=== PATIENT | female | born 1955 | race Caucasian/White ===

== ENCOUNTER → 2016-10-26 | Outpatient (REF) | payer MEDICARE ==
[~2016-10-26] MED LIST: /ESOM40CA PO; AMAR1TAB PO; ASPI325T PO; ATOR1TAB18 PO; CALC1CAP31 PO; CITRTAB18 PO; FISH1000 PO; FLUO20CA8 PO; FLUO40CA57 PO; GLIM1TAB PO; MECL-68 PO; METO25TAB PO; PANT40TA2 PO; ROBA750T4 PO; TYLE1TAB5 PO; ULTR50TA PO; VESI10TA PO; VITA100066 PO; VITA500047 PO; VYTO10TA41 PO; ZOFR20TA PO
[2016-10-26 17:01] LABS: INR 1.03
== END ==
LOC: M SFHCPLAZ 15:43
PROVIDERS: ATTEND Physician Assistant Medical
DX: R91.1 Solitary pulmonary nodule (principal); Z79.899 Other long term (current) drug therapy

== ENCOUNTER → 2016-11-09 | Outpatient (CLI) | payer MEDICARE ==
[~2016-11-09] MED LIST changes: +ACETAMINOPHEN 325 MG TAB As Ordered ONE; +FLUO40CA PO; -FLUO40CA57 PO; +LIDOCAINE 1% MDV 20ML VIAL As Ordered ONE
--- NOTE | 2016-11-09 10:31 | REP ---
CHEST X-RAY: Single PA view. HISTORY: Status post CT guided needle biopsy right lower lobe lung mass. Comparison chest x-rays from August 04, 2016. FINDINGS: Today's PA chest x-ray shows no evidence of pneumothorax or hydrothorax. The target right base lung mass is not well seen on plain radiographs. Heart is not enlarged. The left lung remains essentially clear. Pleural angles are sharp. IMPRESSION: No complication identified. Signed by Shan Chung MD 11/09/2016 02:32 P
--- NOTE | 2016-11-09 12:37 | REP ---
CT GUIDED RIGHT LOWER LOBE LUNG BIOPSY: The procedure was performed under the direct supervision of Dr. Chung. The patient has a history of a lobular mass measuring 2.6 x 2.3 x 2.9 cm in the medial basilar segment of the right lower lobe seen on a previous CT scan dated 09/27/2016. The risks and benefits of the procedure were explained to the patient and informed consent was obtained. The right lower lobe lung mass was localized using CT guidance. The skin was prepped and draped in a sterile fashion. 1% Xylocaine was used as a local anesthetic. Using CT guidance, a 19-20 gauge coaxial needle biopsy system was inserted and advanced into the mass. Four core biopsy samples were obtained and sent to the lab. The patient tolerated the procedure well and there were no immediate complications. After the appropriate amount of monitored convalescence, the patient was discharged from the department. Reviewed by BRYSON Hayden 11/09/2016 01:44 PEdited and Signed by Shan Chung MD 11/09/2016 02:37 P
== END | disposition home or self-care (01) ==
LOC: M RADPRO 08:56
PROVIDERS: ATTEND Physician Assistant Medical
DX: C34.90 Malignant neoplasm of unspecified part of unspecified bronchus or lung (principal); Z79.82 Long term (current) use of aspirin; Z79.899 Other long term (current) drug therapy; Z88.5 Allergy status to narcotic agent; Z80.1 Family history of malignant neoplasm of trachea, bronchus and lung

== ENCOUNTER → 2016-11-24 | Outpatient (CLI) | payer MEDICARE ==
[~2016-11-24] MED LIST changes: -ACETAMINOPHEN 325 MG TAB As Ordered ONE; -LIDOCAINE 1% MDV 20ML VIAL As Ordered ONE
--- NOTE | 2016-11-25 09:09 | REP ---
PET/CT: HISTORY: Adenocarcinoma right lung. COMPARISONS: Comparison CT scan of the chest is from September 27, 2016. TECHNIQUE: 64 minutes following the intravenous injection of a 8.0 mCi dose of F-18 FDG, three-dimensional PET scintigraphy is acquired from the skull base to the proximal thighs. Triplanar noncontrast CT scanning is acquired through the same anatomic range for attenuation correction, and image registration with scan parameters optimized to minimize radiation exposure to the patient. PET scintigraphy and CT datasets were fused and displayed on a workstation with multiplanar and projection display capability. PET/CT FINDINGS: The biopsy-proven malignant right lower lobe lung mass is hypermetabolic. Maximum standard uptake value is 11.8 in the right lower lobe mass. There is a second small contralateral hypermetabolic uptake focus in the left lower lobe posterobasal segment infrahilar region where there is some atelectasis and infrahilar bullous versus focal bronchiectasis. Maximum SUV value in this small subcentimeter rounded focus is 4.8. There is a second similar focus in the left lower lobe more posteriorly also infrahilar with maximum SUV value 4.2. These areas are difficult to visualize on the accompanying CT. There are of uncertain significance. There is no evidence of mediastinal or hilar hypermetabolic uptake. No other pulmonary parenchymal uptake is seen. Incidental note is made of an aberrant right subclavian artery coursing behind the esophagus in the upper mediastinum. There are visible lymph nodes in the mediastinum but these are not hypermetabolic. In the abdomen and pelvis, there is normal hepatic, genitourinary, and gastrointestinal FDG accumulation. This patient has a history of splenectomy but there is some recurrent or residual spleen tissue in the left upper quadrant and this shows normal uptake. There is a cyst in the left kidney. Some renal cortical atrophy is seen. There is a subdermal hypermetabolic focus in the left buttock posterior skin at the level of the ischium. This dermal focus is quite hypermetabolic. Maximum standard uptake value within it is 12.6. It measures 2.7 cm in medial to lateral x 0.9 cm in thickness x 2.9 cm in craniocaudal span. This should be correlated clinically. Biopsy of this lesion should be considered. Also noted is a 3.4 cm distal aortic aneurysm. IMPRESSION: 1. The known malignancy in the right lower lobe is hypermetabolic. 2. There are two left lower lobe infrahilar foci of mildly hypermetabolic uptake with some associated subtle parenchymal opacity of uncertain significance. 3. There is a markedly hypermetabolic dermal lesion in the left buttock skin which merits clinical correlation and histologic sampling. 4. There is an aberrant right subclavian artery noted incidentally. Signed by Shan Chung MD 11/25/2016 09:55 A
== END ==
LOC: M RAD 11:21
PROVIDERS: ATTEND Family Medicine
DX: C34.91 Malignant neoplasm of unspecified part of right bronchus or lung (principal)
CPT/HCPCS: 78815; A9552

== ENCOUNTER → 2016-11-30 | Outpatient (REF) | payer MEDICARE ==
[2016-11-30 14:33] LABS: CREATININE FOR GFR 2.36 MG/DL (0.55-1.02); GLOMERULAR FILTRATION RATE 22.1 (>45)
== END ==
LOC: M LAB REF 13:06
PROVIDERS: ATTEND Thoracic Surgery (Cardiothoracic Vascular Surgery)
DX: C34.31 Malignant neoplasm of lower lobe, right bronchus or lung (principal); Z01.818 Encounter for other preprocedural examination

== ENCOUNTER → 2016-12-27 | Day surgery (SDC) | payer MEDICARE ==
[~2016-12-27] VITALS: Ht 152.4 cm; Wt 96.2 kg
[~2016-12-27] MED LIST changes: +ACETAMINOPH W/CODEINE #3 TAB UD PO ONE; +CIPROFLOXACIN 0.3% OPHTH SOLN 2.5ML OS SCH; +EPINEPHrine 1MG/10ML SYRINGE 1.5IN As Ordered ONE; +GLYCOPYRROLATE INJ 0.2 MG/ML 2 ML VIAL As Ordered ONE; +HYDROmorphone HCL 1 MG/ML SYRINGE (J1170) IV PRN; +LABETALOL HCL 100 MG/20 ML VIAL As Ordered ONE; +LIDOCAINE 1% MDV 20ML VIAL As Ordered ONE; +LIDOCAINE 2% INJ 100 MG/5 ML SDV (FOR ANES.) As Ordered ONE; +LIDOCAINE VISCOUS 2% SOLN 15ML UDC As Ordered ONE; +LR 1,000 ML IV SCH; +MIDAZOLAM INJ 2 MG/2 ML VIAL (J2250) As Ordered ONE; +NEOSTIGMINE 1MG/ML 5 ML SYRINGE (J2710) As Ordered ONE; +ONDANSETRON 4MG/2ML VIAL (J2405) As Ordered ONE; +ONDANSETRON 4MG/2ML VIAL (J2405) IV PRN; +PROPARACAINE 0.5% OPHTH SOL 15ML OS ONE; +PROPOFOL 200 MG/20 ML VIAL As Ordered ONE; +ROCURONIUM BROMIDE 50 MG/5 ML VIAL As Ordered ONE; +THROMBIN SOLN 5,000 UNITS VIAL As Ordered ONE; +dexameTHASONE 4 MG/ML 1ML VIAL (J1100) As Ordered ONE; +fentaNYL 100 MCG/2 ML INJECTION (J3010) As Ordered ONE; +fentaNYL 100 MCG/2 ML INJECTION (J3010) IV PRN
--- NOTE | 2016-12-27 09:29 | RO ---
DATE OF PROCEDURE: 12/27/2016 PREOPERATIVE DIAGNOSIS: Abnormal chest CT, left hilar, left lower lobe hypermetabolic lesion on imaging. POSTOPERATIVE DIAGNOSIS: Abnormal chest CT, left hilar, left lower lobe hypermetabolic lesion on imaging. PROCEDURE: Bronchoscopy with electromagnetic navigation and endobronchial ultrasound procedures. SURGEON: Randy Valero DO CONSTRUCTION DIRECTOR: No assistants. ANESTHESIA: General. FINDINGS: Pitting of the airway, especially in the left with thick mucus secretions. ESTIMATED BLOOD LOSS: 5 mL. SPECIMENS OBTAINED: 1. Cyto-needle brush to cytology. 2. Transbronchial forceps biopsies left lower lobe to cytology. DESCRIPTION OF PROCEDURE: After informed consent was reviewed with the patient in the preoperative area, she was brought back to operating room (OR) suite #8. After a time-out, general anesthesia was initiated. The case was then handed over to me. The 1T180 bronchoscope was then inserted through the 8.5 endotracheal tube. This was deep. Therefore, the tube was pulled back. All airways were suctioned as there was large amounts of thick yellow mucus. The airways were then inspected. Trachea was midline. Amie was sharp midline. Right and left mainstem bronchus was normal. Right bronchus (RB) 1-10 was normal without endobronchial lesions. The right middle lobe is fish mouthed. Left bronchus (LB) 1-10 was fairly normal except for hyperemic airways. There was no endobronchial lesions. Automatic registration was then performed. The target #1 lesion was then easily navigated to. Cyto needle brush was then obtained times two. This was followed by multiple transbronchial forceps biopsies. After adequate sampling, the bronchoscope was removed. According to the navigation system, the lesion was in 5 mm of the tip of the probe. The probe was removed. The LG guide was removed and hemostasis was assured. After the bronchoscope was removed, the endobronchial ultrasound was then inserted. I viewed the subcarinal area of the left hilum and the left lower lobe as much as possible. There was no significant lymphadenopathy or mass for biopsies. Pictures were taken of the site in question. There was nothing but open vasculature. The endobronchial ultrasound was then removed. Patient tolerated the procedure without complications. She is in recovery. Postprocedure chest x-ray is pending. LUIS
--- NOTE | 2016-12-27 09:48 | REP ---
POSTOPERATIVE PORTABLE CHEST: COMPARISON: 11/09/2016 The technique utilized in obtaining the radiograph has magnified the cardiac silhouette and accentuated the interstitial markings. Increased interstitial markings are seen throughout the lung parker. There are no patchy opacities or pleural effusions. The cardiac silhouette is top limit of normal with the technique utilized in obtaining the radiograph. The osseous structures are within normal limits. IMPRESSION: Technique and findings as described above. Mild interstitial edema cannot be ruled out. Signed by Mathew Arroyo DO 12/27/2016 02:31 P
[2016-12-27 15:50] VITALS: BP 148/70
== END | disposition home or self-care (01) ==
LOC: M SDC 06:25
PROVIDERS: ATTEND Internal Medicine Pulmonary Disease
DX: R91.8 Other nonspecific abnormal finding of lung field (principal); E11.9 Type 2 diabetes mellitus without complications; I25.2 Old myocardial infarction; Z98.61 Coronary angioplasty status; G47.30 Sleep apnea, unspecified; Z88.8 Allergy status to other drugs, medicaments and biological substances; Z79.82 Long term (current) use of aspirin; Z79.899 Other long term (current) drug therapy; I10 Essential (primary) hypertension; E78.5 Hyperlipidemia, unspecified; K21.9 Gastro-esophageal reflux disease without esophagitis; Z87.891 Personal history of nicotine dependence; G35 Multiple sclerosis
CPT/HCPCS: 31623; 31627; 31628; 31654; 71010; 76000; 88104; 88172; 88173; 88305; J1100; J2250; J2405; J2710; J3010

== ENCOUNTER → 2016-12-30 | Outpatient (CLI) | payer MEDICARE ==
[~2016-12-30] MED LIST changes: -ACETAMINOPH W/CODEINE #3 TAB UD PO ONE; -CIPROFLOXACIN 0.3% OPHTH SOLN 2.5ML OS SCH; -EPINEPHrine 1MG/10ML SYRINGE 1.5IN As Ordered ONE; -GLYCOPYRROLATE INJ 0.2 MG/ML 2 ML VIAL As Ordered ONE; -HYDROmorphone HCL 1 MG/ML SYRINGE (J1170) IV PRN; -LABETALOL HCL 100 MG/20 ML VIAL As Ordered ONE; -LIDOCAINE 1% MDV 20ML VIAL As Ordered ONE; -LIDOCAINE 2% INJ 100 MG/5 ML SDV (FOR ANES.) As Ordered ONE; -LIDOCAINE VISCOUS 2% SOLN 15ML UDC As Ordered ONE; -LR 1,000 ML IV SCH; -MIDAZOLAM INJ 2 MG/2 ML VIAL (J2250) As Ordered ONE; -NEOSTIGMINE 1MG/ML 5 ML SYRINGE (J2710) As Ordered ONE; -ONDANSETRON 4MG/2ML VIAL (J2405) As Ordered ONE; -ONDANSETRON 4MG/2ML VIAL (J2405) IV PRN; -PROPARACAINE 0.5% OPHTH SOL 15ML OS ONE; -PROPOFOL 200 MG/20 ML VIAL As Ordered ONE; -ROCURONIUM BROMIDE 50 MG/5 ML VIAL As Ordered ONE; -THROMBIN SOLN 5,000 UNITS VIAL As Ordered ONE; -dexameTHASONE 4 MG/ML 1ML VIAL (J1100) As Ordered ONE; -fentaNYL 100 MCG/2 ML INJECTION (J3010) As Ordered ONE; -fentaNYL 100 MCG/2 ML INJECTION (J3010) IV PRN
[2016-12-30 12:14] LABS: ABG BASE EXCESS -1.4 (-2.0-2.0); ABG HCO3 21.5 MEQ/L (22.0-26.0); ABG PARTIAL PRESSURE CO2 31.1 mmHg (35.0-45.0); ABG PARTIAL PRESSURE O2 106.8 mmHg (75.0-100.0); ABG STANDARD HCO3 23.3 MEQ/L (22.0-26.0); ABG TOTAL CO2 22.4 MEQ/L (23.0-31.0); ABG pH (ARTERIAL) 7.457 UNITS (7.350-7.450)
[2016-12-30 12:18] LABS: MEAN CORPUSCULAR HEMOGLOBIN 29.6 pg (27.0-33.0); MEAN CORPUSCULAR HGB CONC 32.1 g/dl (32.0-36.5); MEAN CORPUSCULAR VOLUME 92.4 fl (80.0-96.0); RED CELL DISTRIBUTION WIDTH 13.9 % (11.5-14.5); WHITE BLOOD COUNT 11.4 K/mm3 (4.0-10.0)
[2016-12-30 12:45] LABS: INR 1.01
--- NOTE | 2016-12-30 12:49 | ECGEPIP ---
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
[2016-12-30 12:59] LABS: CALCIUM LEVEL 9.3 MG/DL (8.8-10.2); CREATININE FOR GFR 2.47 MG/DL (0.55-1.02); POTASSIUM SERUM 4.8 MEQ/L (3.5-5.1)
--- NOTE | 2016-12-30 14:15 | REP ---
TWO-VIEW CHEST: Two views of the chest are performed and compared to multiple prior exams, most recently a single view of the chest, 12/27/2016. The known right lower lobe mass is not optimally seen by radiography. It is vaguely visualized posteromedially in the right lung base. There is fibrotic change in each lung base. The heart is normal in size. The mediastinal silhouette is unremarkable. There are degenerative changes of the spine. IMPRESSION: Subtle right lower lobe mass. Signed by Dejan Ovalle MD 12/30/2016 04:43 P
== END ==
LOC: M ADMPAT 10:49
PROVIDERS: ATTEND Thoracic Surgery (Cardiothoracic Vascular Surgery)
DX: Z01.818 Encounter for other preprocedural examination (principal); C34.31 Malignant neoplasm of lower lobe, right bronchus or lung; Z79.01 Long term (current) use of anticoagulants; Z79.899 Other long term (current) drug therapy

== ENCOUNTER → 2016-12-31 | Outpatient (CLI) | payer MEDICARE ==
[2016-12-30 11:02] VITALS: BP 124/86
[~2016-12-31] VITALS: Ht 152.4 cm; Wt 96.2 kg
[~2016-12-31] MED LIST changes: +ASPIRIN 325 MG TAB As Ordered ONE; +ASPIRIN 325 MG TAB PO ONE; +BUPIVACAINE HCL 0.25% 30 ML VIAL As Ordered ONE; +BUPIVACAINE HCL 0.5% 30 ML VIAL As Ordered ONE; +BUPIVACAINE LIPOSOME/PF 1.3% 20 ML VIAL (13.3MG/ML)(EXPAREL) As Ordered ONE; +KETOROLAC 60 MG/2 ML VIAL (J1885) As Ordered ONE; +LIDOCAINE 2% INJ 100 MG/5 ML SDV (FOR ANES.) As Ordered ONE; +LR 1,000 ML IV SCH; +MIDAZOLAM INJ 2 MG/2 ML VIAL (J2250) As Ordered ONE; +MIDAZOLAM INJ 2 MG/2 ML VIAL (J2250) IV ONE; +MUPIROCIN 2% OINT 22 GM TUBE TOP ONE; +ONDANSETRON 4MG/2ML VIAL (J2405) As Ordered ONE; +PROPOFOL 200 MG/20 ML VIAL As Ordered ONE; +ROCURONIUM BROMIDE 50 MG/5 ML VIAL As Ordered ONE; +ceFAZolin SOD 1 GM in D5W MINI-BAG PLUS 50 ML IV ONE; +dexameTHASONE 4 MG/ML 1ML VIAL (J1100) As Ordered ONE; +fentaNYL 100 MCG/2 ML INJECTION (J3010) As Ordered ONE; +fentaNYL 100 MCG/2 ML INJECTION (J3010) IV ONE; +fentaNYL 250 MCG/5 ML INJECTION (J3010) As Ordered ONE
[2016-12-31 06:36] LABS: ABG BASE EXCESS -3.5 (-2.0-2.0); ABG HCO3 20.6 MEQ/L (22.0-26.0); ABG PARTIAL PRESSURE CO2 34.4 mmHg (35.0-45.0); ABG PARTIAL PRESSURE O2 102.8 mmHg (75.0-100.0); ABG STANDARD HCO3 21.6 MEQ/L (22.0-26.0); ABG TOTAL CO2 21.6 MEQ/L (23.0-31.0); ABG pH (ARTERIAL) 7.395 UNITS (7.350-7.450)
[2016-12-31 09:15] VITALS: BP 139/69
== END ==
LOC: UNDOADMIN 05:52 → M OR 05:52 → EDSTATUS 07:30 → M LAB 10:00
PROVIDERS: ATTEND Thoracic Surgery (Cardiothoracic Vascular Surgery)
DX: C34.31 Malignant neoplasm of lower lobe, right bronchus or lung (principal)

== ENCOUNTER 2017-02-20 15:35 | Inpatient (IN) | payer MEDICARE, MEDICAID ==
[~2017-02-20] VITALS: Ht 149.9 cm; Wt 100.1 kg
[~2017-02-20 15:35] MED LIST changes: -ASPIRIN 325 MG TAB As Ordered ONE; -ASPIRIN 325 MG TAB PO ONE; -BUPIVACAINE HCL 0.25% 30 ML VIAL As Ordered ONE; -BUPIVACAINE HCL 0.5% 30 ML VIAL As Ordered ONE; -BUPIVACAINE LIPOSOME/PF 1.3% 20 ML VIAL (13.3MG/ML)(EXPAREL) As Ordered ONE; -KETOROLAC 60 MG/2 ML VIAL (J1885) As Ordered ONE; -LIDOCAINE 2% INJ 100 MG/5 ML SDV (FOR ANES.) As Ordered ONE; -LR 1,000 ML IV SCH; -MIDAZOLAM INJ 2 MG/2 ML VIAL (J2250) As Ordered ONE; -MIDAZOLAM INJ 2 MG/2 ML VIAL (J2250) IV ONE; -MUPIROCIN 2% OINT 22 GM TUBE TOP ONE; -ONDANSETRON 4MG/2ML VIAL (J2405) As Ordered ONE; -PROPOFOL 200 MG/20 ML VIAL As Ordered ONE; -ROCURONIUM BROMIDE 50 MG/5 ML VIAL As Ordered ONE; -ceFAZolin SOD 1 GM in D5W MINI-BAG PLUS 50 ML IV ONE; -dexameTHASONE 4 MG/ML 1ML VIAL (J1100) As Ordered ONE; -fentaNYL 100 MCG/2 ML INJECTION (J3010) As Ordered ONE; -fentaNYL 100 MCG/2 ML INJECTION (J3010) IV ONE; -fentaNYL 250 MCG/5 ML INJECTION (J3010) As Ordered ONE
[2017-02-20] MEDS ORDERED: ASPI1TAB PO (15:58)
[2017-02-20 17:53] LABS: BASO % 0.6 % (0.0-1.0); EOS # 0.2 K/mm3 (0.0-0.50); EOS % 3.1 % (0.0-3.0); LARGE UNSTAINED CELL # 0.3 K/mm3 (0.0-0.4); LARGE UNSTAINED CELL % 3.5 % (0.0-4.0); LYMPH # 2.4 K/mm3 (1.5-4.5); LYMPH % 28.8 % (24.0-44.0); MEAN CORPUSCULAR HEMOGLOBIN 29.9 pg (27.0-33.0); MEAN CORPUSCULAR HGB CONC 32.5 g/dl (32.0-36.5); MEAN CORPUSCULAR VOLUME 92.1 fl (80.0-96.0); MONO # 0.6 K/mm3 (0.0-0.8); MONO % 6.8 % (0.0-5.0); NEUTROPHILS # 4.7 K/mm3 (1.8-7.7); NEUTROPHILS % 57.2 % (36.0-66.0); PLATELET COUNT, AUTOMATED 268 k/mm3 (150-450); RED CELL DISTRIBUTION WIDTH 14.1 % (11.5-14.5); WHITE BLOOD COUNT 8.2 K/mm3 (4.0-10.0)
[2017-02-20 18:16] LABS: ANION GAP 9 MEQ/L (8-16); BLOOD UREA NITROGEN 43 MG/DL (7-18); CALCIUM LEVEL 8.5 MG/DL (8.8-10.2); CARBON DIOXIDE LEVEL 20 MEQ/L (21-32); CHLORIDE LEVEL 111 MEQ/L (98-107); CREATININE FOR GFR 3.45 MG/DL (0.55-1.02); GLOMERULAR FILTRATION RATE 14.3 (>45); GLUCOSE, FASTING 77 MG/DL (80-110); MAGNESIUM LEVEL 1.9 MG/DL (1.8-2.4); PHOSPHORUS LEVEL 3.7 MG/DL (2.5-4.9); POTASSIUM SERUM 4.6 MEQ/L (3.5-5.1); SODIUM LEVEL 140 MEQ/L (136-145); THYROXINE (T4) 9.7 UG/DL (4.5-12.0)
[2017-02-20] MEDS ORDERED: NS 1,000 ML IV SCH (21:00)
[2017-02-20] MEDS ORDERED: RANI150T PO (21:55)
[2017-02-20] MEDS ORDERED: CLOP75TA2 PO (21:55)
[2017-02-20] MEDS: NS 1,000 ML IV SCH (22:45)
[2017-02-20] MEDS ORDERED: ACETAMINOPHEN TAB 650MG DOSE (2X325MG) PO PRN (22:45)
[2017-02-20] MEDS ORDERED: ONDANSETRON 4 MG TAB (S0181) PO PRN (23:00)
[2017-02-20 23:08] LABS: ABG BASE EXCESS -10.7 (-2.0-2.0); ABG HCO3 11.8 MEQ/L (22.0-26.0); ABG PARTIAL PRESSURE CO2 20.3 mmHg (35.0-45.0); ABG PARTIAL PRESSURE O2 104.6 mmHg (75.0-100.0); ABG STANDARD HCO3 16.2 MEQ/L (22.0-26.0); ABG TOTAL CO2 12.4 MEQ/L (23.0-31.0); ABG pH (ARTERIAL) 7.383 UNITS (7.350-7.450)
[2017-02-21] VITALS: BP 139/62
[2017-02-21] MEDS: ATORVASTATIN 20 MG TAB PO SCH ×2 (00:40→20:40)
[2017-02-21] MEDS: CLOPIDOGREL 75 MG TAB PO SCH ×2 (00:40→20:41)
[2017-02-21] MEDS: PANTOPRAZOLE 40MG TAB (PROTONIX) PO SCH ×3 (00:41→20:41)
[2017-02-21] MEDS: METOPROLOL TART 25 MG TABLET PO SCH ×4 (00:41→20:41)
[2017-02-21] MEDS: ASPIRIN 81 MG ENTERIC TAB PO SCH ×2 (00:41→20:41)
[2017-02-21] MEDS: GLIMEPIRIDE 1 MG TABLET PO SCH ×3 (01:31→08:11)
[2017-02-21 03:56] VITALS: BP 119/61
--- NOTE | 2017-02-21 06:23 | ECGEPIP ---
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
[2017-02-21 06:48] LABS: BASO % 0.5 % (0.0-1.0); EOS # 0.3 K/mm3 (0.0-0.50); EOS % 3.4 % (0.0-3.0); LARGE UNSTAINED CELL # 0.4 K/mm3 (0.0-0.4); LARGE UNSTAINED CELL % 4.4 % (0.0-4.0); LYMPH # 3.4 K/mm3 (1.5-4.5); LYMPH % 40.5 % (24.0-44.0); MEAN CORPUSCULAR HEMOGLOBIN 31.4 pg (27.0-33.0); MEAN CORPUSCULAR HGB CONC 34.6 g/dl (32.0-36.5); MEAN CORPUSCULAR VOLUME 90.6 fl (80.0-96.0); MONO # 0.6 K/mm3 (0.0-0.8); MONO % 6.9 % (0.0-5.0); NEUTROPHILS # 3.7 K/mm3 (1.8-7.7); NEUTROPHILS % 44.3 % (36.0-66.0); PLATELET COUNT, AUTOMATED 219 k/mm3 (150-450); WHITE BLOOD COUNT 8.4 K/mm3 (4.0-10.0)
--- NOTE | 2017-02-21 07:15 | REP ---
CHEST, TWO VIEWS: HISTORY: Cough. COMPARISON: 12/30/2016 The patient's known right lower lobe mass is not seen in the present radiograph. An increase in interstitial markings is present in the lower lobes consistent with chronic interstitial fibrosis. The heart is normal in size. The pulmonary vasculature is normal in appearance. The bony structure is intact. IMPRESSION: 1. The patient's known right lower lobe mass is not seen in the present radiograph. 2. Chronic interstitial fibrosis. Signed by Marquis Mendosa MD 02/21/2017 08:27 A
[2017-02-21 07:19] LABS: ALBUMIN 2.8 GM/DL (3.2-5.2); ALBUMIN/GLOBULIN RATIO 0.85 (1.00-1.93); BILIRUBIN,TOTAL 0.2 MG/DL (0.2-1.0); CALCIUM LEVEL 7.9 MG/DL (8.8-10.2); CREATININE FOR GFR 3.38 MG/DL (0.55-1.02); GLOMERULAR FILTRATION RATE 14.6 (>45); PHOSPHORUS LEVEL 3.7 MG/DL (2.5-4.9); POTASSIUM SERUM 4.6 MEQ/L (3.5-5.1); TOTAL PROTEIN 6.1 GM/DL (6.4-8.2)
[2017-02-21 08:00] VITALS: BP 127/57
[2017-02-21] MEDS: FLUoxetine 20 MG CAP PO SCH (08:12)
[2017-02-21] MEDS: CALCITRIOL 0.25 MCG CAP (S0169) PO SCH (08:12)
[2017-02-21] MEDS ORDERED: LOTRISONE CREAM 15 GM (BETAMETH/CLOTRIMAZOLE) TOP SCH (09:00)
[2017-02-21] MEDS ORDERED: PANTOPRAZOLE 40MG TAB (PROTONIX) PO SCH (09:00)
[2017-02-21] MEDS: NYSTATIN 100,000 UNITS/GM TOPICAL PWD 15 GM TOP SCH (09:00)
[2017-02-21] MEDS ORDERED: SOLIFENACIN 5 MG TAB PO SCH (09:00)
--- NOTE | 2017-02-21 09:26 | IPNPDOC ---
Subjective Date Seen The patient was seen on 02/21/17. Subjective Chief Complaint/HPI The patient is a 61-year-old female admitted with a reason for visit of Acute Renal Failure, Short Of Breath. Events since last encounter Pt this morning without new concerns. She cont to have mtp loose stools. She denies abd pain or cramping. She has ringworm for which lotrisone is being applied. General: Denies: Fatigue Constitutional: Denies: Chills, Fever ENT: Denies: Head Aches Pulmonary: Denies: Dyspnea, Cough Cardiovascular: Denies: Chest Pain, Palpitations Gastrointestinal: Reports: Diarrhea, Denies: Nausea, Vomiting Psych: Reports: Mood Normal Objective Physical Examination General Exam: Positive: Alert, No Acute Distress ENT Exam: Positive: Mucous membr. moist/pink Neck Exam: Positive: Supple Chest Exam: Positive: Clear to auscultation, Normal air movement Heart Exam: Positive: Rate Normal, Normal S1, Normal S2 Abdomen Exam: Positive: Normal bowel sounds, Soft, Negative: Tenderness Extremity Exam: Negative: Edema Psych Exam: Positive: Mental status NL, Mood NL Assessment /Plan Problems (1) Non-small cell cancer of right lung Problem Text: 02/21/17 case d/w Dr. Negrete-he is now favoring XRT given probably non-operable case-will repeat CT chest and he will d/w patient 02/2209/27/17 RLL 26/23/29 mm mass confirmed poorly differentiated adenoCA by biopsy. PET c ? [address]-benign by endobronchial brushing/ biopsy by Marylu (2) Acute renal failure Status: Acute Discussed With: Patient Problem Specific Plan: Monitor Clinically, Repeat Labs Problem Text: AKI1 likely secondary to dehydration assoc with recent diarrhea. Scr baseline 2.3-2.5, currently 2.38, down slightly from 2.45 on admission. Cont with IVF 80 cc/hr. Pt is tolerating PO. She is having frequent loose stools. 02/21 Will obtain renal US, UA/UCX/hold Vesicare (3) Astrovirus enteritis Status: Acute Response to Treatment: Stable, Improving Discussed With: Patient Problem Specific Plan: Monitor Clinically, Repeat Labs Problem Text: Diarrhea can be followed with N/V/Fever/abd pain and malaise, Disease is usually self limiting after 2-4 days. (4) DM2 (diabetes mellitus, type 2) Status: Chronic Response to Treatment: Stable Problem Text: On HD Glimepiride-BS 90-100; therefore, held (5) GERD (gastroesophageal reflux disease) Status: Chronic Response to Treatment: Stable Problem Specific Plan: Monitor Clinically Problem Text: Protonix BID (6) CAD (coronary artery disease) Status: Chronic Response to Treatment: Stable Problem Specific Plan: Monitor Clinically Problem Text: asymptomatic, cont with ASA, lipitor, Lopressor Plan/VTE VTE Prophylaxis Ordered?: Yes VS, I&O, 24H, Fishbone Vital Signs/I&O Vital Signs Date Time Temp Pulse Resp B/P (MAP) Pulse Ox O2 Delivery O2 Flow Rate FiO2 02/21/17 08:12 119/61 02/21/17 08:00 97.8 61 18 94 Room Air I&O- Last 24 Hours up to 6 AM 02/21/17 05:59 Intake Total 60 ml Output Total 500 ml Balance -440 ml Laboratory Data 24H LABS Laboratory Tests 2 02/20/17 17:42: White Blood Count 8.2, Red Blood Count 4.95, Hemoglobin 14.8, Hematocrit 45.6, Mean Corpuscular Volume 92.1, Mean Corpuscular Hemoglobin 29.9, Mean Corpuscular Hemoglobin Concent 32.5, Red Cell Distribution Width 14.1, Platelet Count 268, Neutrophils (%) (Auto) 57.2, Lymphocytes (%) (Auto) 28.8, Monocytes ( %) (Auto) 6.8H, Eosinophils (%) (Auto) 3.1H, Basophils (%) (Auto) 0.6, Neutrophils # (Auto) 4.7, Lymphocytes # (Auto) 2.4, Monocytes # (Auto) 0.6, Eosinophils # (Auto) 0.2, Basophils # (Auto) 0.0, Large Unclassified Cells % 3.5 , Large Unclassified Cells # 0.3, Anion Gap 9, Glomerular Filtration Rate 14.3L , Blood Urea Nitrogen 43H, Creatinine 3.45H, Sodium Level 140, Potassium Level 4.6, Chloride Level 111H, Carbon Dioxide Level 20L, Calcium Level 8.5L, Phosphorus Level 3.7, Total Creatine Kinase 90, Magnesium Level 1.9, Creatine Kinase MB 1.6, Creatine Kinase MB Relative Index 1.77, Troponin I < 0.02, B- Type Natriuretic Peptide 43.6, Thyroid Stimulating Hormone (TSH) 0.685, Thyroxine (T4) 9.7 02/20/17 23:01: Blood Gas Bicarbonate Standard 16.2L, Arterial Blood pH 7.383, Arterial Blood Partial Pressure CO2 20.3L, Arterial Blood Partial Pressure O2 104.6H, Arterial Blood Total CO2 12.4L, Arterial Blood HCO3 11.8L, Arterial Blood Base Excess - 10.7L, Arterial Blood Oxygen Saturation 98.4 02/20/17 23:03: Total Creatine Kinase 80, Creatine Kinase MB 1.8, Creatine Kinase MB Relative Index 2.25, Troponin I 0.03# 02/21/17 06:41: White Blood Count 8.4, Red Blood Count 4.03, Hemoglobin 12.6#, Hematocrit 36.5, Mean Corpuscular Volume 90.6, Mean Corpuscular Hemoglobin 31.4, Mean Corpuscular Hemoglobin Concent 34.6, Red Cell Distribution Width 14.0, Platelet Count 219, Neutrophils (%) (Auto) 44.3, Lymphocytes (%) (Auto) 40.5, Monocytes ( %) (Auto) 6.9H, Eosinophils (%) (Auto) 3.4H, Basophils (%) (Auto) 0.5, Neutrophils # (Auto) 3.7, Lymphocytes # (Auto) 3.4, Monocytes # (Auto) 0.6, Eosinophils # (Auto) 0.3, Basophils # (Auto) 0.0, Large Unclassified Cells % 4.4H, Large Unclassified Cells # 0.4, Anion Gap 9, Glomerular Filtration Rate 14.6L, Blood Urea Nitrogen 45H, Creatinine 3.38H, Sodium Level 142, Potassium Level 4.6, Chloride Level 115H, Carbon Dioxide Level 18L, Calcium Level 7.9L, Phosphorus Level 3.7, Total Creatine Kinase 92, Creatine Kinase MB 2.4, Creatine Kinase MB Relative Index 2.58, Troponin I 0.03, Aspartate Amino Transf (AST/SGOT) 25, Alanine Aminotransferase (ALT/SGPT) 24, Lactate Dehydrogenase 181 , Alkaline Phosphatase 115, Total Bilirubin 0.2, Triglycerides Level 189H, Cholesterol Level 124, Total Protein 6.1L, Albumin 2.8L, Albumin/Globulin Ratio 0.85L CBC/BMP Laboratory Tests 02/20/17 17:42 Red Blood Count 4.95, Mean Corpuscular Volume 92.1, Mean Corpuscular Hemoglobin 29.9, Mean Corpuscular Hemoglobin Concent 32.5, Red Cell Distribution Width 14.1 , Neutrophils (%) (Auto) 57.2, Lymphocytes (%) (Auto) 28.8, Monocytes (%) (Auto ) 6.8 H, Eosinophils (%) (Auto) 3.1 H, Basophils (%) (Auto) 0.6, Neutrophils # ( Auto) 4.7, Lymphocytes # (Auto) 2.4, Monocytes # (Auto) 0.6, Eosinophils # (Auto ) 0.2, Basophils # (Auto) 0.0, Calcium Level 8.5 L, Phosphorus Level 3.7, Total Creatine Kinase 90 02/21/17 06:41 Red Blood Count 4.03, Mean Corpuscular Volume 90.6, Mean Corpuscular Hemoglobin 31.4, Mean Corpuscular Hemoglobin Concent 34.6, Red Cell Distribution Width 14.0 , Neutrophils (%) (Auto) 44.3, Lymphocytes (%) (Auto) 40.5, Monocytes (%) (Auto ) 6.9 H, Eosinophils (%) (Auto) 3.4 H, Basophils (%) (Auto) 0.5, Neutrophils # ( Auto) 3.7, Lymphocytes # (Auto) 3.4, Monocytes # (Auto) 0.6, Eosinophils # (Auto ) 0.3, Basophils # (Auto) 0.0, Calcium Level 7.9 L, Phosphorus Level 3.7, Total Creatine Kinase 92, Aspartate Amino Transf (AST/SGOT) 25, Alanine Aminotransferase (ALT/SGPT) 24, Lactate Dehydrogenase 181, Alkaline Phosphatase 115, Total Bilirubin 0.2, Triglycerides Level 189 H, Cholesterol Level 124, Total Protein 6.1 L, Albumin 2.8 L Microbiology Microbiology 02/20/17 Blood Culture, Received Pending 02/20/17 Blood Culture, Received Pending 02/21/17 Gastrointestinal Tract Panel (PCR) - Final, Complete Astrovirus 02/20/17 Influenza Virus Type A Antigen - Final, Complete 02/20/17 Influenza Virus Type B Antigen - Final, Complete ANI BARRIENTOS PA-C February 21, 2017 09:26 Edgardo Li M.D. February 21, 2017 14:02
[2017-02-21] MEDS: ENOXAPARIN 30 MG/0.3 ML SYR (J1650) SC SCH (11:46)
[2017-02-21] MEDS: NS 1,000 ML IV SCH ×2 (11:47→21:39)
[2017-02-21 11:55] VITALS: BP 118/64
[2017-02-21 16:00] VITALS: BP 115/57
--- NOTE | 2017-02-21 16:15 | REP ---
RENAL ULTRASOUND: HISTORY: Kidney injury. The kidneys are increased in echogenicity. The right kidney measures 3.8 cm in transverse x 4.5 cm in AP x 9.3 cm in cephalocaudal dimensions. The left kidney measures 4.8 cm in transverse x 4.4 cm in AP x 7.8 cm in cephalocaudal dimensions. A cyst is present in the right kidney. The cyst measures 1.3 x 1.3 x 1.2 cm. There is no hydronephrosis or mass. There is malrotation of the left kidney. There is possible dilatation on the left ureter. There are no filling defects in the urinary bladder. Pre void volume is 360.5 mL. Postvoid residual is 90 mL. PVR is 24%. IMPRESSION: Renal ultrasound as described above. Signed by Marquis Mendosa MD 02/21/2017 04:18 P
--- NOTE | 2017-02-21 16:28 | REP ---
CT CHEST WITHOUT CONTRAST: REASON: History of right lung nonsmall cell carcinoma. COMPARISON: Multiple, latest 12/07/2016. Once again examination is limited by the lack of intravenous contrast administration. The mediastinum and pulmonary jaydon appear unchanged There are no pleural or pericardial effusions. The imaged upper abdomen appears unchanged. There is a possible solid right renal mass only the superior most portion of which was imaged on this chest CT and there appears to be a cystic mass arising from the left kidney. The osseous structures appear stable from the latest prior with spinal degenerative changes. Evaluation of the lung parker show a large asymmetric right lower lobe mass which today measures 3.4 x 3 x 23.7 cm. This has increased in size from the prior exam. Once again, scattered asymmetric densities are seen throughout the lung parker. Once again, emphysematous changes are seen throughout the lung parker. IMPRESSION: 1. Enlarging mass in the right lower lobe as described above. 2. Scattered asymmetric densities which could obscure a small but significant new pulmonary nodule. 3. Possible findings involving each kidney. I have no prior abdominal CT to review. Previous renal ultrasound obtained 02/21/2017, should be reviewed by all interested parties. I would suggest pre and post contrast enhanced renal CT for complete evaluation of the suspected findings. Signed by Mathew Arroyo DO 02/21/2017 04:54 P
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
[2017-02-21 20:00] VITALS: BP 110/59
[2017-02-21] MEDS: LOTRISONE CREAM 15 GM (BETAMETH/CLOTRIMAZOLE) TOP SCH (20:40)
--- NOTE | 2017-02-21 22:50 | ECGEPIP ---
Stationary ECG Study [facility] Test Date: 2017-02-21 Pat Name: TYRA FAJARDO Department: Room: [place] [address] Gender: F Traffic Counter: ALLYSON : 1955 Requested By: Mahnaz Tomas [facility] Order Number: [id number] Reading MD: Thong Wells Measurements Intervals [place] Rate: 61 P: 34 WA: 187 QRS: 35 QRSD: 96 T: 57 QT: 453 QTc: 460 Interpretive Statements SINUS RHYTHM POSSIBLE PRIOR INFERIOR WALL INFARCT COMPARED TO THE LAST TRACING ON 02/20/2017 AT 17:44:24. NO SIGNIFICANT CHANGES Electronically Signed On 02-21-2017 22:50:28 EDT by Thong Wells
[2017-02-22] VITALS: BP 120/57
[2017-02-22 04:00] VITALS: BP 112/57
[2017-02-22 06:04] LABS: MEAN CORPUSCULAR HEMOGLOBIN 29.8 pg (27.0-33.0); MEAN CORPUSCULAR HGB CONC 32.3 g/dl (32.0-36.5); MEAN CORPUSCULAR VOLUME 92.4 fl (80.0-96.0); RED CELL DISTRIBUTION WIDTH 14.4 % (11.5-14.5)
[2017-02-22 06:24] LABS: ALBUMIN 2.4 GM/DL (3.2-5.2); CALCIUM LEVEL 7.3 MG/DL (8.8-10.2); CREATININE FOR GFR 3.2 MG/DL (0.55-1.02); GLOMERULAR FILTRATION RATE 15.6 (>45); PHOSPHORUS LEVEL 3.3 MG/DL (2.5-4.9); POTASSIUM SERUM 3.9 MEQ/L (3.5-5.1)
[2017-02-22 08:00] VITALS: BP 130/64
[2017-02-22] MEDS: FLUoxetine 20 MG CAP PO SCH (09:28)
[2017-02-22] MEDS: METOPROLOL TART 25 MG TABLET PO SCH ×2 (09:29→20:29)
[2017-02-22] MEDS: PANTOPRAZOLE 40MG TAB (PROTONIX) PO SCH ×2 (09:29→20:28)
[2017-02-22] MEDS: ENOXAPARIN 30 MG/0.3 ML SYR (J1650) SC SCH (09:29)
[2017-02-22] MEDS: CALCITRIOL 0.25 MCG CAP (S0169) PO SCH (09:29)
[2017-02-22] MEDS: LOTRISONE CREAM 15 GM (BETAMETH/CLOTRIMAZOLE) TOP SCH ×2 (09:30→20:29)
[2017-02-22] MEDS: NYSTATIN 100,000 UNITS/GM TOPICAL PWD 15 GM TOP SCH (09:30)
[2017-02-22] MEDS: NS 1,000 ML IV SCH ×2 (10:21→20:57)
--- NOTE | 2017-02-22 10:44 | IPNPDOC ---
Subjective Date Seen The patient was seen on 02/22/17. Subjective Chief Complaint/HPI The patient is a 61-year-old female admitted with a reason for visit of Acute Renal Failure, Short Of Breath. Events since last encounter Pt awoke this morning feeling confused about her location and her condition. She is quite anxious about the results of her CT chest. She has done better since be re-oriented to her surroundings this morning. Constitutional: Denies: Chills, Fever ENT: Denies: Head Aches Pulmonary: Denies: Dyspnea, Cough Cardiovascular: Denies: Chest Pain, Palpitations Gastrointestinal: Denies: Nausea, Vomiting, Diarrhea Neurological: Reports: Weakness Psych: Reports: Memory Issues Objective Physical Examination General Exam: Positive: Alert, Cooperative, No Acute Distress ENT Exam: Positive: Mucous membr. moist/pink Neck Exam: Positive: Supple Chest Exam: Positive: Clear to auscultation, Normal air movement Heart Exam: Positive: Rate Normal, Normal S1, Normal S2 Abdomen Exam: Positive: Normal bowel sounds, Soft, Negative: Tenderness Extremity Exam: Negative: Edema Psych Exam: Positive: Mental status NL, Mood NL Assessment /Plan Problems (1) Non-small cell cancer of right lung Problem Text: 02/22 d/w Caden-he consulted for XRT given non-operable case 02/21 case d/w Dr. Negrete-he is now favoring XRT given probably non-operable case -repeat CT 34/32/37 09/27/17 RLL 26/23/29 mm mass confirmed poorly differentiated adenoCA by biopsy. PET c ? [address]-benign by endobronchial brushing/ biopsy by Marylu (2) Acute renal failure Status: Acute Response to Treatment: Improving Discussed With: Patient Problem Specific Plan: Monitor Clinically, Repeat Labs Problem Text: 02/22 - Scr down slightly from 3.38 to 3.2. Cont with IVF for now , rate of 80 cc/hr, met acidosis-+ HCO3 02/21 AKI1 likely secondary to dehydration assoc with recent diarrhea. Scr baseline 2.3-2.5, currently 3.38, down slightly from 3.45 on admission. Cont with IVF 80 cc/hr. Pt is tolerating PO. She is having frequent loose stools. 02/21 renal US c/w MRD, simple cyst 02/21 UA/UCX ordered-not yet obtained (3) Astrovirus enteritis Status: Acute Response to Treatment: Stable, Improving Discussed With: Patient Problem Specific Plan: Monitor Clinically, Repeat Labs Problem Text: 02/22 - Diarrhea has resolved, remains afebrile and without other symptoms. 02/21 Diarrhea can be followed with N/V/Fever/abd pain and malaise, Disease is usually self limiting after 2-4 days. (4) DM2 (diabetes mellitus, type 2) Status: Chronic Response to Treatment: Stable Problem Text: On HD Glimepiride-BS 90-100; therefore, held (5) GERD (gastroesophageal reflux disease) Status: Chronic Response to Treatment: Stable Problem Specific Plan: Monitor Clinically Problem Text: Protonix BID (6) CAD (coronary artery disease) Status: Chronic Response to Treatment: Stable Problem Specific Plan: Monitor Clinically Problem Text: asymptomatic, cont with ASA, lipitor, Lopressor (7) Depression Status: Chronic Response to Treatment: Stable Problem Text: Continue HD fluoxetine 80 seen by locums-Psych Plan/VTE VTE Prophylaxis Ordered?: Yes [facility] Sign[facility]/I&O Vital Signs Date Time Temp Pulse Resp B/P (MAP) Pulse Ox O2 Delivery O2 Flow Rate FiO2 02/22/17 09:29 69 130/64 02/22/17 08:00 98.2 20 97 Room Air I&O- Last 24 Hours up to 6 AM 02/22/17 06:00 Intake Total 3060 ml Output Total 375 ml Balance 2685 ml Laboratory Data 24H LABS Laboratory Tests 2 02/21/17 15:19: Total Creatine Kinase 126, Creatine Kinase MB 3.9H, Creatine Kinase MB Relative Index 3.09, Troponin I 0.02# 02/21/17 17:45: Bedside Glucose (Misc Panel) 89 02/22/17 05:46: Blood Urea Nitrogen 34H, Creatinine 3.20H, Sodium Level 145, Potassium Level 3.9 , Chloride Level 119H, Carbon Dioxide Level 17L, Anion Gap 9, Glomerular Filtration Rate 15.6L, Calcium Level 7.3L, Phosphorus Level 3.3, Albumin 2.4L CBC/BMP Laboratory Tests 02/22/17 05:46 Red Blood Count 3.77 L, Mean Corpuscular Volume 92.4, Mean Corpuscular Hemoglobin 29.8, Mean Corpuscular Hemoglobin Concent 32.3, Red Cell Distribution Width 14.4, Anion Gap 9 Microbiology Microbiology 02/20/17 Blood Culture - Preliminary, Resulted No growth after 24 hours . All specim... 02/20/17 Blood Culture - Preliminary, Resulted No growth after 24 hours . All specim... 02/21/17 Gastrointestinal Tract Panel (PCR) - Final, Complete Astrovirus 02/20/17 Influenza Virus Type A Antigen - Final, Complete 02/20/17 Influenza Virus Type B Antigen - Final, Complete ANI BARRIENTOS PA-C February 22, 2017 10:44 Edgardo Li M.D. February 22, 2017 14:00
[2017-02-22 12:00] VITALS: BP 128/62
[2017-02-22 16:00] VITALS: BP 106/51
[2017-02-22] MEDS: SODIUM BICARBONATE 325 MG TAB PO SCH ×2 (16:22→20:28)
[2017-02-22 20:00] VITALS: BP 137/92
[2017-02-22] MEDS: ATORVASTATIN 20 MG TAB PO SCH (20:28)
[2017-02-22] MEDS: ASPIRIN 81 MG ENTERIC TAB PO SCH (20:28)
[2017-02-22] MEDS: CLOPIDOGREL 75 MG TAB PO SCH (20:29)
[2017-02-23] VITALS (7 sets, daily range): BP systolic 107–139; BP diastolic 55–64
--- NOTE | 2017-02-23 09:07 | IPNPDOC ---
Subjective Date Seen The patient was seen on 02/23/17. Subjective Chief Complaint/HPI The patient is a 61-year-old female admitted with a reason for visit of Acute Renal Failure, Short Of Breath. Events since last encounter Feels better. No SOB. No CP. Ambulated around room and to BR with morning with only slight unsteadiness which is at her baseline. She admits she is sad and overwhelmed by her diagnosis of lung cancer, but she has supportive family, daughter lives above her in the home and she denies SI. Constitutional: Denies: Chills, Fever Pulmonary: Denies: Dyspnea, Cough Cardiovascular: Denies: Chest Pain, Palpitations, Orthopnea Gastrointestinal: Denies: Nausea, Vomiting, Abdominal Pain, Diarrhea, Constipation Genitourinary: Denies: Dysuria Objective Physical Examination General Exam: Positive: Alert, Cooperative, No Acute Distress ENT Exam: Positive: Mucous membr. moist/pink Neck Exam: Positive: Supple Chest Exam: Positive: Clear to auscultation, Normal air movement Heart Exam: Positive: Rate Normal, Normal S1, Normal S2 Abdomen Exam: Positive: Normal bowel sounds, Soft, Negative: Tenderness Extremity Exam: Negative: Edema Psych Exam: Positive: Mental status NL, Mood NL Assessment /Plan Problems (1) Acute renal failure Status: Acute Response to Treatment: Improving Discussed With: Patient Problem Specific Plan: Monitor Clinically, Repeat Labs Problem Text: 02/23 - No labs done today. Await results of labs I ordered. If renal function improved, then plan to d/c home today, otherwise continue IVF and move to floor (Baseline Creatinine = 2.3) 02/22 - Scr down slightly from 3.38 to 3.2. Cont with IVF for now, rate of 80 cc/ hr, met acidosis-+ HCO3 02/21 AKI1 likely secondary to dehydration assoc with recent diarrhea. Scr baseline 2.3-2.5, currently 3.38, down slightly from 3.45 on admission. Cont with IVF 80 cc/hr. Pt is tolerating PO. She is having frequent loose stools. 02/21 renal US c/w MRD, simple cyst 02/21 UA/UCX ordered-not yet obtained (2) Non-small cell cancer of right lung Problem Text: 02/23/17 - Dr. Negrete reports, this is non-operable. Plan for outpatient RT 5/2 d/w Caden-he consulted for XRT given non-operable case 02/21 case d/w Dr. Negrete-he is now favoring XRT given probably non-operable case -repeat CT 34/32/37 09/27/17 RLL 26/23/29 mm mass confirmed poorly differentiated adenoCA by biopsy. PET c ? [address]-benign by endobronchial brushing/ biopsy by Marylu (3) Astrovirus enteritis Status: Acute Response to Treatment: Stable, Improving Discussed With: Patient Problem Specific Plan: Monitor Clinically, Repeat Labs Problem Text: 02/23 - No further diarrhea 02/22 - Diarrhea has resolved, remains afebrile and without other symptoms. 02/21 Diarrhea can be followed with N/V/Fever/abd pain and malaise, Disease is usually self limiting after 2-4 days. (4) DM2 (diabetes mellitus, type 2) Status: Chronic Response to Treatment: Stable Problem Text: 02/23 - Blood sugars running in the 80s and 90s Glimeperide on hold. Hba1c = 6 05/2016. Frankly, I would not restart Glimeperide at such a high dose as outpatient especially in person with CKD. (5) GERD (gastroesophageal reflux disease) Status: Chronic Response to Treatment: Stable Problem Specific Plan: Monitor Clinically Problem Text: Protonix BID (6) CAD (coronary artery disease) Status: Chronic Response to Treatment: Stable Problem Specific Plan: Monitor Clinically Problem Text: 02/23 - S/P recent stents asymptomatic, cont with ASA, Plavix, lipitor, Lopressor (7) Depression Status: Chronic Response to Treatment: Stable Problem Text: 02/23 - Psych cleared her. Sitter d/c'd. not felt to be suicide risk per psych. I spoke with patient and she reports feeling overwhelmed, but does not feel at risk of hurting herself. She does not feel that she needs psych treatment or counseling as outpatient. Continue HD fluoxetine 80 Plan/VTE VTE Prophylaxis Ordered?: Yes (Lovenox) VS, I&O, 24H, Fishbone Vital Signs/I&O Vital Signs Date Time Temp Pulse Resp B/P (MAP) Pulse Ox O2 Delivery O2 Flow Rate FiO2 02/23/17 08:00 98.6 60 18 127/60 (82) 96 Room Air I&O- Last 24 Hours up to 6 AM 5/3/17 05:59 Intake Total 2260 ml Output Total 750 ml Balance 1510 ml Laboratory Data 24H LABS Laboratory Tests 2 02/22/17 17:17: Bedside Glucose (Misc Panel) 87 Microbiology Microbiology 02/20/17 Blood Culture - Preliminary, Resulted No Growth after 48 hours. All Specime... 02/20/17 Blood Culture - Preliminary, Resulted No Growth after 48 hours. All Specime... 02/21/17 Gastrointestinal Tract Panel (PCR) - Final, Complete Astrovirus 02/20/17 Influenza Virus Type A Antigen - Final, Complete 02/20/17 Influenza Virus Type B Antigen - Final, Complete IVETT NGUYEN PA-C February 23, 2017 09:07
[2017-02-23 09:26] LABS: ALBUMIN 2.5 GM/DL (3.2-5.2); ALBUMIN/GLOBULIN RATIO 0.64 (1.00-1.93); BILIRUBIN,TOTAL 0.3 MG/DL (0.2-1.0); CALCIUM LEVEL 7.6 MG/DL (8.8-10.2); CREATININE FOR GFR 2.81 MG/DL (0.55-1.02); GLOMERULAR FILTRATION RATE 18.1 (>45); POTASSIUM SERUM 4.3 MEQ/L (3.5-5.1); TOTAL PROTEIN 6.4 GM/DL (6.4-8.2)
[2017-02-23 09:34] LABS: MEAN CORPUSCULAR HGB CONC 32.6 g/dl (32.0-36.5); MEAN CORPUSCULAR VOLUME 91.9 fl (80.0-96.0); RED CELL DISTRIBUTION WIDTH 14.6 % (11.5-14.5); WHITE BLOOD COUNT 8.2 K/mm3 (4.0-10.0)
[2017-02-23] MEDS: LOTRISONE CREAM 15 GM (BETAMETH/CLOTRIMAZOLE) TOP SCH ×2 (09:45→21:50)
[2017-02-23] MEDS: NYSTATIN 100,000 UNITS/GM TOPICAL PWD 15 GM TOP SCH (09:45)
[2017-02-23] MEDS: PANTOPRAZOLE 40MG TAB (PROTONIX) PO SCH ×2 (09:46→21:22)
[2017-02-23] MEDS: CALCITRIOL 0.25 MCG CAP (S0169) PO SCH (09:46)
[2017-02-23] MEDS: ENOXAPARIN 30 MG/0.3 ML SYR (J1650) SC SCH (09:46)
[2017-02-23] MEDS: SODIUM BICARBONATE 325 MG TAB PO SCH ×2 (09:47→21:22)
[2017-02-23] MEDS: METOPROLOL TART 25 MG TABLET PO SCH ×2 (09:47→21:23)
[2017-02-23] MEDS: FLUoxetine 20 MG CAP PO SCH (09:47)
[2017-02-23] MEDS: NS 1,000 ML IV SCH ×2 (09:48→22:43)
[2017-02-23] MEDS: CLOPIDOGREL 75 MG TAB PO SCH (21:22)
[2017-02-23] MEDS: ATORVASTATIN 20 MG TAB PO SCH (21:22)
[2017-02-23] MEDS: ASPIRIN 81 MG ENTERIC TAB PO SCH (21:23)
[2017-02-24 02:00] VITALS: BP 118/56
[2017-02-24 06:00] VITALS: BP 123/60
[2017-02-24 07:25] LABS: ALBUMIN 2.3 GM/DL (3.2-5.2); ALBUMIN/GLOBULIN RATIO 0.66 (1.00-1.93); BILIRUBIN,TOTAL 0.3 MG/DL (0.2-1.0); CALCIUM LEVEL 7.5 MG/DL (8.8-10.2); CREATININE FOR GFR 2.58 MG/DL (0.55-1.02); POTASSIUM SERUM 4.7 MEQ/L (3.5-5.1); TOTAL PROTEIN 5.8 GM/DL (6.4-8.2)
[2017-02-24] MEDS: SODIUM BICARBONATE 325 MG TAB PO SCH (09:32)
[2017-02-24] MEDS: FLUoxetine 20 MG CAP PO SCH (09:32)
[2017-02-24] MEDS: CALCITRIOL 0.25 MCG CAP (S0169) PO SCH (09:32)
[2017-02-24] MEDS: PANTOPRAZOLE 40MG TAB (PROTONIX) PO SCH (09:33)
[2017-02-24] MEDS: ENOXAPARIN 30 MG/0.3 ML SYR (J1650) SC SCH (09:33)
[2017-02-24] MEDS: LOTRISONE CREAM 15 GM (BETAMETH/CLOTRIMAZOLE) TOP SCH (09:34)
[2017-02-24] MEDS: NYSTATIN 100,000 UNITS/GM TOPICAL PWD 15 GM TOP SCH (09:34)
[2017-02-24 09:35] VITALS: BP 169/73
[2017-02-24] MEDS: METOPROLOL TART 25 MG TABLET PO SCH (09:35)
[2017-02-24 10:00] VITALS: BP 137/67
[2017-02-24] MEDS ORDERED: CLOT1CRE71 TOP (10:02)
[2017-02-24] MEDS ORDERED: NYST10PW TOP (10:02)
--- NOTE | 2017-02-24 14:52 | DSES ---
DATE OF ADMISSION: 02/22/2017 DATE OF DISCHARGE: 02/24/2017 PRIMARY CARE PROVIDER: Edgardo Li MD ATTENDING PHYSICIAN: Edgardo Li MD HISTORY: This is a 60-year-old female patient with known chronic kidney disease, who presented to [facility] emergency room with difficulty breathing, weakness, unsteady gait. She has been recently evaluated by [facility] for a lung mass and also recently underwent stent placement in January 2007 at [facility]. She was evaluated in the emergency room and found to have acute renal failure with diarrhea, which had started the day prior to her presentation. During her hospitalization, she has remained medically stable. Her GI panel revealed astrovirus. The patient was consulted as to the potential source for this, as well as the course of disease. Her diarrhea has resolved during her hospitalization. She developed no other subsequent symptoms. She was placed on IV fluids for acute renal failure. Baseline is about 2.3 to 2.5 for a serum creatinine. This morning she is down to 2.58. Her IV fluids have been discontinued. She is moving around the room without difficulty. She had a repeat CT scan of the chest, which shows enlarging mass of the right lower lobe. Renal ultrasound was also obtained, which was without any acute findings. Blood cultures were both negative. She has been seen and evaluated by physical therapy (PT), who, at this time, feel as though she is safe for discharge home. DISCHARGE DIAGNOSES: 1. Acute renal failure. 2. Non small cell right lung cancer. 3. Astrovirus enteritis. 4. Diabetes mellitus type 2. 5. Coronary artery disease. 6. Depression. She was seen by psychiatry on 02/23/2017, who cleared her. Her sitter was discontinued. DISCHARGE MEDICATIONS: Include: - clotrimazole/betamethasone topically twice a day - nystatin powder topically daily - aspirin 81 mg daily - atorvastatin 80 mg daily - calcitriol 0.25 mcg by mouth daily - Plavix 75 mg by mouth daily - fluoxetine 80 mg daily - glimepiride 0.5 mg twice a day - metoprolol 25 mg twice a day - Zofran 4 mg twice a day as needed for nausea - Protonix 40 mg twice a day - ranitidine 150 mg twice a day - VESIcare 10 mg daily - Tylenol PM two tablets before bed as needed DISCHARGE PLAN: Followup with Dr. Li in one week. Activity should be as tolerated. Diet should be consistent carbohydrate, no added salt, low cholesterol.
== END 2017-02-24 11:45 | disposition home or self-care (01) | DRG 683 ==
LOC: EDBD 15:35 → M ED 16:59 → M ED INP 22:55 → M PCU 23:52 → OBSVTOIN 02-22 16:54 → M MSPAV 02-23 15:18
PROVIDERS: ADMIT Internal Medicine; ATTEND Family Medicine
DX: N17.9 Acute kidney failure, unspecified (principal); A08.32 Astrovirus enteritis; R45.851 Suicidal ideations; Z68.41 Body mass index [BMI] 40.0-44.9, adult; C34.31 Malignant neoplasm of lower lobe, right bronchus or lung; B35.9 Dermatophytosis, unspecified; E11.9 Type 2 diabetes mellitus without complications; K21.9 Gastro-esophageal reflux disease without esophagitis; G35 Multiple sclerosis; N18.9 Chronic kidney disease, unspecified; E78.00 Pure hypercholesterolemia, unspecified; E66.9 Obesity, unspecified; I25.10 Atherosclerotic heart disease of native coronary artery without angina pectoris; F32.9 Major depressive disorder, single episode, unspecified; Z79.82 Long term (current) use of aspirin; Z79.02 Long term (current) use of antithrombotics/antiplatelets; Z79.84 Long term (current) use of oral hypoglycemic drugs; Z79.899 Other long term (current) drug therapy; Z95.9 Presence of cardiac and vascular implant and graft, unspecified; I25.2 Old myocardial infarction; Z88.5 Allergy status to narcotic agent; Z90.721 Acquired absence of ovaries, unilateral; Z90.81 Acquired absence of spleen; Z87.891 Personal history of nicotine dependence

== ENCOUNTER → 2017-03-01 | Outpatient (CLI) | payer MEDICARE, MEDICAID ==
[~2017-03-01] MED LIST changes: +ASPI1TAB PO; +CLOP75TA2 PO; +CLOT1CRE71 TOP; +NYST10PW TOP; +RANI150T PO
--- NOTE | 2017-03-04 06:37 | RADONC ---
RADIATION ONCOLOGY FOLLOWUP NOTE DATE: 03/01/2017 CHART NUMBER: [id number]. DIAGNOSIS: Lung cancer. STAGE: IB, [id number]. ECOG PERFORMANCE STATUS: 1. FOLLOWUP NOTE: Ms. 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 The patient is now re-presenting once again for further discussion of her available options. PAST MEDICAL HISTORY: The patient's past medical history is positive for degenerative joint disease, arthritis, pneumonia, bipolar disease, suicidal ideations, cataracts, [place], angioplasty with stent placement, end-stage renal disease, hypertension, diabetes, hypercholesterolemia, bursitits, multiple sclerosis, a history of dilation and curettages, a splenectomy, a left oophorectomy. ALLERGIES: The patient is allergic to HYDROCODONE and OXYCODONE. SOCIAL HISTORY: The patient has smoked cigarettes her whole life. She does not abuse alcohol. FAMILY HISTORY: The patient's family history is positive for three sisters with lung cancer, a maternal grandmother with pancreatic cancer, and two paternal uncles with lung cancer. The patient's review of systems is positive for occasional dizziness as well as anxiety and depression. She has some chills and generalized weakness. She also reports shortness of breath and some hearing loss. She has fatigue secondary to chronic renal issues. She denies nausea, vomiting, fevers, night sweats, visual disturbances, chest pain, headaches, urinary or bowel difficulties. She does have some back pain. IMAGING: I have personally reviewed the patient's CT scan of the chest done 02/21/2017, which shows a 3.4 cm x 3 cm x 3.7 cm right lower lobe mass. PHYSICAL EXAMINATION The patient is a well-developed, well-nourished, white female in no acute distress. HEENT exam is normocephalic, atraumatic. Extraocular movements are intact. There is no palpable cervical, supraclavicular, infraclavicular, axillary or inguinal lymphadenopathy present. Her lungs have distant breath sounds bilaterally. They are generally clear to auscultation and percussion. Her heart has a regular rate and rhythm. Her abdomen is benign with no hepatosplenomegaly, masses or tenderness. Skeletal examination reveals no tenderness to pressure percussion of the bony skeleton. Extremities reveal no clubbing, cyanosis or edema. Neurologic exam is grossly intact, as is the remainder of the physical examination. ASSESSMENT: I believe the patient would be a candidate for SBRT radiation. I of course will defer to the expertise of the physicians at [facility] with regards to her candidacy. I am setting up this patient for consultation at [facility] and look forward to their expert opinion. In addition, I have placed this patient on our discussion list at multidisciplinary tumor conference to see whether or not she might be a candidate for systemic therapy. I have set her up to be seen by our medical oncologists for an official consultation as well. In addition, I have scheduled her for a PET CT scan for staging purposes. This is scheduled to be done on 03/16/2017. I have scheduled her to be seen by me in 3 months for further followup and have instructed the patient to contact me if there is any difficulty with the above appointment. Once again, in summary, she is scheduled for discussion at our multidisciplinary tumor conference. She is also scheduled for a consultation at [facility] for possible SBRT. She is scheduled to be seen by our medical oncologist for the question of systemic therapy and a PET CT scan for staging is underway. Thank you for allowing us to participate in the care of this very pleasant woman , If I could be of any further assistance or provide you with any information, please feel free to contact me anytime. As always, warm regards. cc: MD Toney Richards MD Ryan Tyler, MD *Dr. Yong SMITH
== END ==
LOC: M ONCR 09:33
PROVIDERS: ATTEND Radiology Radiation Oncology
DX: C34.31 Malignant neoplasm of lower lobe, right bronchus or lung (principal)

== ENCOUNTER → 2017-03-03 | Outpatient (REF) | payer MEDICARE, MEDICAID ==
[2017-03-03 13:14] LABS: BASO % 0.4 % (0.0-1.0); EOS # 0.4 K/mm3 (0.0-0.50); EOS % 3.4 % (0.0-3.0); LARGE UNSTAINED CELL # 0.1 K/mm3 (0.0-0.4); LARGE UNSTAINED CELL % 1.1 % (0.0-4.0); LYMPH # 2.3 K/mm3 (1.5-4.5); LYMPH % 20.2 % (24.0-44.0); MEAN CORPUSCULAR HEMOGLOBIN 30.3 pg (27.0-33.0); MEAN CORPUSCULAR HGB CONC 31.9 g/dl (32.0-36.5); MEAN CORPUSCULAR VOLUME 94.9 fl (80.0-96.0); MONO # 0.7 K/mm3 (0.0-0.8); MONO % 6.2 % (0.0-5.0); NEUTROPHILS # 7.9 K/mm3 (1.8-7.7); NEUTROPHILS % 68.7 % (36.0-66.0); PLATELET COUNT, AUTOMATED 322 k/mm3 (150-450); RED CELL DISTRIBUTION WIDTH 14.5 % (11.5-14.5); WHITE BLOOD COUNT 11.5 K/mm3 (4.0-10.0)
[2017-03-03 13:28] LABS: CALCIUM LEVEL 8.5 MG/DL (8.8-10.2); CREATININE FOR GFR 2.56 MG/DL (0.55-1.02); GLOMERULAR FILTRATION RATE 20.1 (>45); POTASSIUM SERUM 4.9 MEQ/L (3.5-5.1)
== END ==
LOC: M SFHCPLAZ 10:03
PROVIDERS: ATTEND Physician Assistant Medical
DX: N18.4 Chronic kidney disease, stage 4 (severe) (principal)
CPT/HCPCS: 36415; 80048; 85025; G0463

== ENCOUNTER → 2017-03-16 | Outpatient (CLI) | payer MEDICARE, MEDICAID ==
--- NOTE | 2017-03-17 11:03 | REP ---
PET/CT: HISTORY: Restaging lung cancer. Fatigue. COMPARISONS: Comparison PET/CT study November 24, 2016. Comparison chest CT February 21, 2017. TECHNIQUE: 58 minutes following the intravenous injection of a 10.0 mCi dose of F-18 FDG, three-dimensional PET scintigraphy is acquired from the skull base to the proximal thighs. Triplanar noncontrast CT scanning is acquired through the same anatomic range for attenuation correction, and image registration with scan parameters optimized to minimize radiation exposure to the patient. PET scintigraphy and CT datasets were fused and displayed on a workstation with multiplanar and projection display capability. PET/CT FINDINGS: The known malignancy in the right lower lobe is a little larger. It remains hypermetabolic, maximum standard uptake value today 12.4, previously 11.8. A second focus in the left lower lobe infrahilar region in the posterobasal segment remains mildly hypermetabolic, maximum standard uptake value 3.7 today, previously 4.8. No other pulmonary parenchymal hypermetabolic focus is seen. However, today's PET/CT study shows hypermetabolic uptake in the subcarinal adenopathy with maximum standard uptake value 7.5. This is not previously apparent. 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 No other abnormal hypermetabolic uptake is seen within the thorax. Head and neck soft tissues remain unremarkable. No adrenal hypermetabolic uptake is appreciated. Normal hepatic, splenic, gastrointestinal and genitourinary FDG accumulation is seen in the abdomen and pelvis. The previously noted dermal lesion in the left buttock persists and remains hypermetabolic. I am informed by Dr. Negrete that this correlated with a boil. Maximum standard uptake value here today is 6.7. IMPRESSION: 1. There is new subcarinal hypermetabolic lymphadenopathy. 2. The right lower lobe lesion is a little larger and remains hypermetabolic. 3. The infrahilar left lower lobe lesion persists essentially unchanged, standard uptake value is slightly decreased. 4. Persistent dermal uptake in the buttock on the left. Signed by Shan Chung MD 03/17/2017 12:40 P
== END ==
LOC: M PLARAD 08:52
PROVIDERS: ATTEND Radiology Radiation Oncology
DX: C34.91 Malignant neoplasm of unspecified part of right bronchus or lung (principal)
CPT/HCPCS: 78815; A9552

== ENCOUNTER → 2017-03-25 | Outpatient (REF) | payer MEDICARE, MEDICAID | LOC: M LAB REF 09:23 | PROVIDERS: ATTEND Internal Medicine Medical Oncology | DX: C34.31 Malignant neoplasm of lower lobe, right bronchus or lung (principal) ==

== ENCOUNTER → 2017-03-25 | Outpatient (REF) | payer MEDICARE, MEDICAID | LOC: M LAB REF 09:00 | PROVIDERS: ATTEND Internal Medicine Medical Oncology | DX: C34.90 Malignant neoplasm of unspecified part of unspecified bronchus or lung (principal) ==

== ENCOUNTER → 2017-03-25 | Outpatient (CLI) | payer MEDICARE, MEDICAID ==
--- NOTE | 2017-03-25 11:17 | RADONC ---
RADIATION ONCOLOGY PROGRESS NOTE DATE: CHART NUMBER: [id number] DIAGNOSIS: Lung cancer, STAGE: III A. ECOG performance status: one. PROGRESS NOTE: Ms. 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 REVIEW OF SYSTEMS: The patient's review of systems is positive for fatigue, but at this time is otherwise generally noncontributory. Denies nausea, vomiting, fevers, chills, night sweats, diplopia, headaches, anxiety or depression, anorexia, weight loss, visual disturbances, chest pain, urinary or bowel difficulties, bone pain, or neurological problems. PHYSICAL EXAMINATION: The patient is a well-developed, well-nourished 62-year-old female in no acute distress. HEENT exam is normocephalic, atraumatic. Extraocular movements are intact. There is no palpable cervical, supraclavicular, infraclavicular, axillary, or inguinal lymphadenopathy present. Lungs are clear to auscultation and percussion. Heart has a regular rate and rhythm. Abdomen is benign with no hepatosplenomegaly, masses, or tenderness. Skeletal examination reveals no tenderness to pressure or percussion of the bony skeleton. Extremities reveal no clubbing, cyanosis, or edema. Neurologic exam is grossly intact, as is the remainder of the physical examination. IMAGING: I have personally reviewed the patient's head CT done for 03/16/2017 which showed hypermetabolic uptake in the subcarinal lymph node area which was new. ASSESSMENT: I had a very lengthy discussion with this patient. As noted previously, the PET scan now has upstaged her from a stage I B, [id number] to a stage III A. In light of this, we have cancelled the patient's planned SBRT and she is now presenting for discussion of fractionated 3-D conformal radiation. I have discussed with the patient in detail the potential benefits as well as possible acute and chronic sequelae of external beam radiation therapy. We have discussed logistics of treatment planning, simulation and subsequent fractionated daily radiation treatments. I am obtaining pulmonary function tests and a differential lung scan in order to assess whether or not she is truly a candidate for external beam radiation therapy to her primary site and mediastinum. The patient reports that she is able to walk without any significant shortness of breath and that she does not use oxygen. I have no reason at this point not to suspect that she will be able to undergo radiation. We will also be setting her up for simulation so that a dose volume histogram can be generated to further evaluate her overall breathing capacity following completion of treatment. I have discussed this case with our medical oncologist, Dr. Arabella Shah, and we will coordinate the patient's care closely with her. Clearly, systemic therapy may be of benefit to this woman, although she may have some difficulty with tolerance. cc: MD Toney Richards MD Ryan Tyler, MD *MD LUIS Gibbs
--- NOTE | 2017-04-19 08:21 | RADONC ---
RADIATION ONCOLOGY PROGRESS NOTE DATE: 04/18/2017 CHART NUMBER: [id number] I received the path report on Ms. Worrell showing no malignancy on the left side. I subsequently called Dr. Valero to confirm that there was no malignancy found on the left side. Indeed, Dr. Valero expressed doubts that there ever was any type of malignancy there after reviewing her various scans. I then spoke in detail with Dr. Shah and we now have confirmed that this patient has stage III disease. In light of this, the standard of care would be external beam radiation therapy combined with radiation sensitizing chemotherapy. I have scheduled the patient for the next available simulation slot this week so that radiation can be initiated without any further delay. Dr. Shah will be seeing this patient to discuss some type of chemo. The concern of course is whether or not this patient with multiple medical illnesses can tolerate systemic therapy. Indeed, she expressed to me that she has suffered significantly with her MS and does not wish to risk worsening that with any treatment. When the patient comes in for simulation, I will discuss this further. Clearly, the chances of local control are diminished significantly without radiation sensitizing chemotherapy. Of course, will defer to the wishes of the patient. Once again, in summary, I am scheduling the patient for a CT simulation and initiation of treatment planning. She will be seeing Dr. Shah for further discussion of radiation sensitizing treatment. cc: MD Randy Richards, DO [facility]
--- NOTE | 2017-04-21 07:14 | RADONC ---
RADIATION ONCOLOGY SIMULATION NOTE: DATE: 04/20/2017 CHART NUMBER: [id number] Ms. Worrell was taken to the CT scan for CT simulation of her lung field. CT was accomplished without difficulty or discomfort. Radiation treatment planning is underway and radiation treatments will begin subsequently. An immobilization device was created also without difficulty or discomfort. It will be used throughout the course of treatment. I was physically present throughout the course of CT simulation. [facility]
== END ==
LOC: M ONCR 10:02
PROVIDERS: ATTEND Radiology Radiation Oncology
DX: C34.31 Malignant neoplasm of lower lobe, right bronchus or lung (principal)
CPT/HCPCS: 88300; G0463

== ENCOUNTER → 2017-03-29 | Outpatient (CLI) | payer MEDICARE, MEDICAID ==
--- NOTE | 2017-03-29 13:38 | REP ---
MR BRAIN WITHOUT CONTRAST: HISTORY: Lung carcinoma. COMPARISON: 08/04/2016 Punctate and confluent areas of increased signal intensity on T2-weighted images are present in the periventricular and subcortical white matter, corpus callosum and simin. This represents small vessel ischemic disease. There is no intraparenchymal hemorrhage, infarct, mass or midline shift. The ventricular system and cortical sulci are dilated consistent with moderate volume loss. There is no extracerebral collection. Mucosal thickening is present in the left ethmoid and frontal sinuses. IMPRESSION: 1. Small vessel ischemic disease. 2. Moderate volume loss. Signed by Marquis Mendosa MD 03/29/2017 01:39 P
== END ==
LOC: M RAD 12:22
PROVIDERS: ATTEND Internal Medicine Medical Oncology
DX: C34.90 Malignant neoplasm of unspecified part of unspecified bronchus or lung (principal)

== ENCOUNTER → 2017-04-04 | Outpatient (REF) | payer MEDICARE, MEDICAID | LOC: M LAB REF 17:41 | PROVIDERS: ATTEND Internal Medicine Medical Oncology | DX: C34.90 Malignant neoplasm of unspecified part of unspecified bronchus or lung (principal) ==

== ENCOUNTER → 2017-04-05 | Outpatient (CLI) | payer MEDICARE, MEDICAID ==
--- NOTE | 2017-04-05 16:02 | REP ---
CHEST, TWO VIEWS: HISTORY: Lung cancer. COMPARISON: 02/20/2017. The previously described right lower lobe mass is not seen in the present radiographs. An increase in interstitial markings is present in the lungs consistent with chronic interstitial fibrosis. The heart is normal in size. The pulmonary vasculature is normal appearance. The bony structure is intact. IMPRESSION: Chronic interstitial fibrosis. Signed by Marquis Mendosa MD 04/05/2017 04:04 P
--- NOTE | 2017-04-05 19:24 | REP ---
VENTILATION-PERFUSION DIFFERENTIAL LUNG SCAN: 04/05/2017. Clinical history: Lung malignancy in preparation for chemo and radiation therapy. Coronary stents. Technique: The patient received 1 mCi of technetium 99m MAA via an IV and 2 mCi of technetium 99m DTPA aerosol for ventilation phase thereafter. Anterior and posterior static images were obtained for each phase. Upper, middle and lower lung zone counts were obtained in each phase for both sides in both projections. These were calculated individually in both projections and with geometric mean. The perfusion geometric mean shows 47.24% left and 52.76% right lung. The ventilation geometric mean is 44.47% activity left and 55.53% right. Perfusion in the upper lung zones: 11.32 left, 10.64% right. Middle lung zone, left 24.8, right 32.32%. Lower lung zone, left 11.12, right 9.8%. The geometric mean for ventilation: upper lung zone, left 11.61, right 11.83%. Middle lung zones, left 22.21, right 30.51%. Lower lung zone 10.65 left and 13.18% right. Impression: Fairly symmetric ventilation perfusion differential scan results as described above. Signed by Jose Alejandro Stafford MD 04/06/2017 11:43 A
== END ==
LOC: M RAD 13:17
PROVIDERS: ATTEND Radiology Radiation Oncology
DX: C34.90 Malignant neoplasm of unspecified part of unspecified bronchus or lung (principal); J84.112 Idiopathic pulmonary fibrosis
CPT/HCPCS: 71020; 78598; A9540; A9567

== ENCOUNTER → 2017-04-13 | Day surgery (SDC) | payer MEDICARE, MEDICAID ==
[~2017-04-13] VITALS: Ht 149.9 cm; Wt 91.6 kg
[~2017-04-13] MED LIST changes: +ALBUTEROL SULFATE 2.5 MG/0.5 ML INH NEB SOLN As Ordered ONE; +ALBUTEROL SULFATE 2.5 MG/0.5 ML INH NEB SOLN INH ONE; -ATOR1TAB18 PO; +ATOR80TA59 PO; +CLOT1CRE6 TOP; +EPINEPHrine 1MG/10ML SYRINGE 1.5IN As Ordered ONE; +HYDROmorphone HCL 1 MG/ML SYRINGE (J1170) IV PRN; +IPRATROPIUM 0.5MG/ALBUTEROL 2.5MG INH SOL UD 3ML (DUONEB)(J7620) As Ordered ONE; +KEYT1INJ IV; +LEVA1TAB2 PO; +LIDOCAINE 2% INJ 100 MG/5 ML SDV (FOR ANES.) As Ordered ONE; +LIDOCAINE VISCOUS 2% SOLN 15ML UDC As Ordered ONE; +LR 1,000 ML IV ONE; +LR 1,000 ML IV SCH; +METO25TA4 PO; -METO25TAB PO; +MIDAZOLAM INJ 2 MG/2 ML VIAL (J2250) As Ordered ONE; +NYST10CR TOP; +NYST1POW9 TOP; +ONDANSETRON 4MG/2ML VIAL (J2405) As Ordered ONE; +ONDANSETRON 4MG/2ML VIAL (J2405) IV PRN; +PROPOFOL 200 MG/20 ML VIAL As Ordered ONE; +ROCURONIUM BROMIDE 50 MG/5 ML VIAL/SYRINGE As Ordered ONE; +SUCCINYLCHOLINE 100 MG/5 ML SYRINGE (J0330) As Ordered ONE; +SUGAMMADEX SODIUM 500 MG/5 ML VIAL (BRIDION) As Ordered ONE; +THROMBIN SOLN 5,000 UNITS VIAL As Ordered ONE; +VESI10TA2 PO; +ePHEDrine SULFATE 25 MG/5 ML(5MG/ML) SYRINGE As Ordered ONE; +fentaNYL 100 MCG/2 ML INJECTION (J3010) As Ordered ONE
--- NOTE | 2017-04-13 16:40 | REP ---
AP PORTABLE CHEST: 04/13/2017 at 03:54 PM. Comparison: Chest CT 04/08/2017, chest x-ray 04/05/2017. Clinical history: Postoperative chest x-ray after endobronchial ultrasound for known right lower lobe mass in medial basal segment. Findings. Portable chest is somewhat lordotic limiting evaluation of the posterior and lower lung zones. No gross effusion. The mass obscured by diaphragm and the right heart border. No effusion, infiltrate or pneumothorax. No pneumomediastinum. The aorta is mildly tortuous but normal for age. Airway midline. Impression: 1. No plain film evidence of pneumothorax, pneumomediastinum or pleural effusion. The lordotic portable technique obscures the medial basal segment right lower lobe mass. Signed by Jose Alejandro Stafford MD 04/13/2017 08:24 P
[2017-04-13] MEDS: fentaNYL 100 MCG/2 ML INJECTION (J3010) IV PRN ×2 (16:45→16:50)
[2017-04-13 18:25] VITALS: BP 168/76
--- NOTE | 2017-04-14 05:12 | RO ---
DATE OF PROCEDURE: 04/13/2017 PREOPERATIVE DIAGNOSIS: Lung cancer, abnormal chest CT with lymphadenopathy. POSTOPERATIVE DIAGNOSIS: Lung cancer, abnormal chest CT with lymphadenopathy. PROCEDURE: Bronchoscopy with electromagnetic navigation and endobronchial ultrasound. 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 ANESTHESIA: General. FINDINGS: Smoker airways, mucus in the airway. ESTIMATED BLOOD LOSS: Less than 10 mL, none replaced. No observed complications. No drains. SPECIMENS OBTAINED: 1. Fine-needle aspiration (FNA) left lower lobe. 2. Cytology needle brush left lower lobe. 3. Transbronchial forceps biopsies left lower lobe. 4. Bronchoalveolar lavage left lower lobe. 5. Fine-needle aspiration subcarinal node. DESCRIPTION OF PROCEDURE: After informed consent was reviewed with the patient, she was brought back to operating room (OR) #6, which is a pre mapped room. Time-out was performed with two patient identifiers identifying correct site, correct procedure. General anesthesia was initiated and an 8.5 endotracheal tube was placed. The case was then handed over to me and time-out was again performed with two patient identifiers identifying correct site, correct procedure. The 190 bronchoscope was then inserted into the airway with the use of Cetacaine spray. All airways were suctioned of mucus. The trachea was midline. James was slightly splayed. Right and left mainstem bronchus was normal except for a minimal amount of mucus and some banding and pitting. Left bronchus (LB) 1-10 and right bronchus (RB) 1-10 was viewed excessively without any evidence of endobronchial lesions. There is minimal compression of the right middle lobe airways, however easily distended with saline. No endobronchial lesions. After inspection was performed, the LG guide was placed and automatic registration was performed. This was confirmed anatomically. After automatic registration was confirmed, the target #1 in the left lower lobe was easily navigated to. According to the navigation system, the tip of the probe was inside of the target. The probe was then removed and gem cut was performed. A total of four gem cut fine-needle aspirations were performed. This was followed by triple needle brush. After this was performed, 12 forceps biopsies were obtained. After adequate sampling, lavage was performed and the sheath was removed from the area. All airways were suctioned assuring hemostasis and the 190 bronchoscope was removed. An endobronchial ultrasound was then inserted. The james was then viewed. Seven needle aspirations were obtained of the subcarinal node and sent for cell block. There were no observed complications. All areas were suctioned. Hemostasis assured prior to removing the bronchoscope. The patient was extubated and is in recovery. Postprocedure chest x-ray is pending.
== END | disposition home or self-care (01) ==
LOC: M SDC 12:04
PROVIDERS: ATTEND Internal Medicine Pulmonary Disease
DX: C34.31 Malignant neoplasm of lower lobe, right bronchus or lung (principal); R91.8 Other nonspecific abnormal finding of lung field; I25.10 Atherosclerotic heart disease of native coronary artery without angina pectoris; I25.2 Old myocardial infarction; G35 Multiple sclerosis; E11.9 Type 2 diabetes mellitus without complications; F32.9 Major depressive disorder, single episode, unspecified; I12.9 Hypertensive chronic kidney disease with stage 1 through stage 4 chronic kidney disease, or unspecified chronic kidney disease; E78.00 Pure hypercholesterolemia, unspecified; K21.9 Gastro-esophageal reflux disease without esophagitis; R29.898 Other symptoms and signs involving the musculoskeletal system; M12.9 Arthropathy, unspecified; M54.2 Cervicalgia; G63 Polyneuropathy in diseases classified elsewhere; J44.9 Chronic obstructive pulmonary disease, unspecified; R06.83 Snoring; G47.30 Sleep apnea, unspecified; N18.9 Chronic kidney disease, unspecified; Z88.5 Allergy status to narcotic agent; Z79.899 Other long term (current) drug therapy; Z79.82 Long term (current) use of aspirin; Z78.0 Asymptomatic menopausal state; Z87.442 Personal history of urinary calculi; Z87.81 Personal history of (healed) traumatic fracture; Z96.1 Presence of intraocular lens; Z90.5 Acquired absence of kidney; Z90.81 Acquired absence of spleen; Z87.891 Personal history of nicotine dependence; Z95.5 Presence of coronary angioplasty implant and graft
CPT/HCPCS: 31623; 31624; 31627; 31628; 31629; 31652; 71010; 76000; 87070; 87102; 87116; 87205; 87206; 88104; 88108; 88172; 88173; 88305; 88313; 88342; 96374; A4649; J2250; J2405; J3010

== ENCOUNTER 2017-04-18 02:30 | Outpatient (RCR) | payer MEDICARE, MEDICAID ==
[~2017-04-18 02:30] MED LIST changes: -ALBUTEROL SULFATE 2.5 MG/0.5 ML INH NEB SOLN As Ordered ONE; -ALBUTEROL SULFATE 2.5 MG/0.5 ML INH NEB SOLN INH ONE; -CLOT1CRE6 TOP; -EPINEPHrine 1MG/10ML SYRINGE 1.5IN As Ordered ONE; -HYDROmorphone HCL 1 MG/ML SYRINGE (J1170) IV PRN; -IPRATROPIUM 0.5MG/ALBUTEROL 2.5MG INH SOL UD 3ML (DUONEB)(J7620) As Ordered ONE; -KEYT1INJ IV; -LEVA1TAB2 PO; -LIDOCAINE 2% INJ 100 MG/5 ML SDV (FOR ANES.) As Ordered ONE; -LIDOCAINE VISCOUS 2% SOLN 15ML UDC As Ordered ONE; -LR 1,000 ML IV ONE; -LR 1,000 ML IV SCH; -MIDAZOLAM INJ 2 MG/2 ML VIAL (J2250) As Ordered ONE; -NYST10CR TOP; -NYST1POW9 TOP; -ONDANSETRON 4MG/2ML VIAL (J2405) As Ordered ONE; -ONDANSETRON 4MG/2ML VIAL (J2405) IV PRN; -PROPOFOL 200 MG/20 ML VIAL As Ordered ONE; -ROCURONIUM BROMIDE 50 MG/5 ML VIAL/SYRINGE As Ordered ONE; -SUCCINYLCHOLINE 100 MG/5 ML SYRINGE (J0330) As Ordered ONE; -SUGAMMADEX SODIUM 500 MG/5 ML VIAL (BRIDION) As Ordered ONE; -THROMBIN SOLN 5,000 UNITS VIAL As Ordered ONE; -ePHEDrine SULFATE 25 MG/5 ML(5MG/ML) SYRINGE As Ordered ONE; -fentaNYL 100 MCG/2 ML INJECTION (J3010) As Ordered ONE
--- NOTE | 2017-05-24 09:03 | RADONC ---
RADIATION ONCOLOGY PROGRESS NOTE: DATE: 05/23/2017 CHART NUMBER: [id number]. PROGRESS NOTE: Ms. Worrell is presently at a dose of 2520 cGy to her right lung and mediastinum and is tolerating treatments quite well at this point with no significant difficulties related to her radiation therapy other than some esophagitis. REVIEW OF SYSTEMS: The patient's review of systems is positive for esophagitis but is otherwise noncontributory. Denies nausea, vomiting, fevers, chills, night sweats, diplopia, headaches, anxiety or depression, anorexia, weight loss, visual disturbances, chest pain, urinary or bowel difficulties, bone pain, or neurological problems. PHYSICAL EXAMINATION: The patient's skin is in good condition with no evidence of radiation change present. There is no moist or dry desquamation. The remainder of physical exam remains unchanged. Ms. Worrell is tolerating treatments quite well and radiation will continue as scheduled.
[2017-08-17] MEDS ORDERED: LEVA1TAB2 PO (14:02)
== END 2017-04-22 ==
LOC: M ONCR 02:30
PROVIDERS: ATTEND Radiology Radiation Oncology
DX: C34.31 Malignant neoplasm of lower lobe, right bronchus or lung (principal)

== ENCOUNTER → 2017-04-20 | Outpatient (CLI) | payer MEDICARE, MEDICAID ==
[~2017-04-20] MED LIST changes: +ATOR1TAB18 PO; -ATOR80TA59 PO; -METO25TA4 PO; +METO25TAB PO; -VESI10TA2 PO
== END ==
LOC: M RAD 13:54
PROVIDERS: ATTEND Radiology Radiation Oncology
DX: C34.90 Malignant neoplasm of unspecified part of unspecified bronchus or lung (principal)

== ENCOUNTER 2017-04-28 09:21 | Outpatient (RCR) | payer MEDICARE, MEDICAID ==
[~2017-04-28 09:21] MED LIST changes: -ATOR1TAB18 PO; +ATOR80TA59 PO; +METO25TA4 PO; -METO25TAB PO; +VESI10TA2 PO
--- NOTE | 2017-05-03 07:48 | RADONC ---
RADIATION ONCOLOGY PROGRESS NOTE DATE: 05/02/2017 CHART NUMBER: [id number] Ms. Worrell underwent her first fraction of radiation today to her right lung. It was tolerated without difficulty or discomfort. The patient's review of systems is unremarkable. She denies nausea, vomiting, fevers, chills, night sweats, diplopia, headaches, anxiety or depression, anorexia, weight loss, visual disturbances, chest pain, urinary or bowel difficulties, bone pain, or neurological problems. PHYSICAL EXAMINATION: The patient's physical exam shows no change in skin secondary to radiation. The remainder of the physical exam remains unchanged as well. Ms. Worrell is tolerating her treatments quite well and radiation will continue as scheduled.
--- NOTE | 2017-05-10 05:20 | RADONC ---
RADIATION ONCOLOGY PROGRESS NOTE DATE: 05/09/2017 CHART NUMBER: [id number] PROGRESS NOTE: Ms. Worrell is presently at a dose of 900 cGy to her right lung and is tolerating treatments quite well at this point with no complaints related to her radiation therapy. She is having no increased difficulty swallowing or shortness of breath. REVIEW OF SYSTEMS: The patient's review of systems is noncontributory. Denies nausea, vomiting, fevers, chills, night sweats, diplopia, headaches, anxiety or depression, anorexia, weight loss, visual disturbances, chest pain, urinary or bowel difficulties, bone pain, or neurological problems. PHYSICAL EXAMINATION: The patient's skin is in good condition with no evidence of radiation change present. There is no moist or dry desquamation. The remainder of her physical exam remains unchanged. Ms. Worrell is tolerating treatments quite well and radiation will continue as scheduled.
--- NOTE | 2017-05-17 09:50 | RADONC ---
RADIATION ONCOLOGY PROGRESS NOTE DATE: 05/16/2017 CHART NUMBER: [id number] Ms. Worrell is presently at a dose of 1620 cGy to her lung and mediastinum and is tolerating treatments quite well at this point with no complaints related to her radiation therapy. She is having no difficulty swallowing or other problems. The patient's review of systems is noncontributory. She denies nausea, vomiting, fevers, chills, night sweats, diplopia, headaches, anxiety or depression, anorexia, weight loss, visual disturbances, chest pain, urinary or bowel difficulties, bone pain, or neurological problems. PHYSICAL EXAMINATION: The patient's skin is in good condition with no evidence of moist or dry desquamation. The remainder of her physical exam remains unchanged. Ms. Worrell is tolerating treatments quite well and radiation will continue as scheduled.
[2017-08-17] MEDS ORDERED: LEVA1TAB2 PO (14:02)
== END 2017-05-23 ==
LOC: M ONCR 09:21
PROVIDERS: ATTEND Radiology Radiation Oncology
DX: C34.31 Malignant neoplasm of lower lobe, right bronchus or lung (principal)

== ENCOUNTER 2017-05-24 11:08 | Outpatient (RCR) | payer MEDICARE, MEDICAID ==
--- NOTE | 2017-05-31 07:34 | RADONC ---
RADIATION ONCOLOGY PROGRESS NOTE: DATE: 05/30/2017 CHART NUMBER: [id number] Ms. Worrell is thus far at a dose of 3060 cGy to her lung and mediastinum. She was last treated on 05/26/2017, which was . The patient came in today reporting that she does not feel well and has had difficulty swallowing. She says she has had this discomfort over her esophagus and has been having some exacerbation of her MS. On physical exam, the patient's skin is in good condition with no evidence of radiation change present. Her vital signs appear to be stable. The remainder of her physical exam remains unchanged. I have given the patient a rest at this time at least until . We will continue to follow her closely in the meantime.
--- NOTE | 2017-06-07 08:14 | RADONC ---
RADIATION ONCOLOGY PROGRESS NOTE DATE: 06/06/2017 CHART NUMBER: [id number] Ms. Worrell is presently at a dose of 3240 cGy to her right lung and mediastinum and has reinitiated treatment after being on break since 05/26/2017. The patient reports today that she is feeling much better and is able to swallow. The patient's review of systems is noncontributory. She denies nausea, vomiting, fevers, chills, night sweats, diplopia, headaches, anxiety or depression, anorexia, weight loss, visual disturbances, chest pain, urinary or bowel difficulties, bone pain, or neurological problems. PHYSICAL EXAMINATION: The patient's skin is in good condition with no evidence of moist or dry desquamation. The remainder of her physical exam remains unchanged. Ms. Worrell is tolerating treatments quite well and radiation will continue as scheduled.
--- NOTE | 2017-06-14 07:56 | RADONC ---
RADIATION ONCOLOGY PROGRESS NOTE: DATE: 06/13/2017 CHART NUMBER: #[id number] Ms. Worrell is presently at a dose of 3960 cGy to her mediastinum and is tolerating treatments quite well at this point with no complaints related to her radiation therapy. She is having no urinary or bowel difficulties. No bone pain. REVIEW OF SYSTEMS: The patient's review of systems is noncontributory. She denies nausea, vomiting, fevers, chills, night sweats, diplopia, headaches, anxiety or depression, anorexia, weight loss, visual disturbances, chest pain, urinary or bowel difficulties, bone pain, or neurological problems. PHYSICAL EXAMINATION: The patient's skin is in good condition with no evidence of moist or dry desquamation. The remainder of her physical exam remains unchanged. Ms. Worrell is tolerating treatments quite well and radiation will continue as scheduled.
--- NOTE | 2017-06-21 13:58 | RADONC ---
RADIATION ONCOLOGY PROGRESS NOTE DATE: 06/20/2017 CHART NUMBER: [id number] Ms. Worrell is presently at a dose of 4500 cGy to her right lung and mediastinum and is tolerating treatments quite well at this point with no complaints related to her radiation therapy. She is having no increased difficulty breathing or swallowing at this time. The patient's review of systems is largely noncontributory. She denies nausea, vomiting, fevers, chills, night sweats, diplopia, headaches, anxiety or depression, anorexia, weight loss, visual disturbances, chest pain, urinary or bowel difficulties, bone pain, or neurological problems. PHYSICAL EXAMINATION: The patient's skin is in good condition with no evidence of moist or dry desquamation. The remainder of her physical exam remains largely unchanged. Ms. Worrell is tolerating treatments quite well and radiation will continue as scheduled.
[2017-08-17] MEDS ORDERED: LEVA1TAB2 PO (14:02)
== END 2017-06-23 ==
LOC: M ONCR 11:08
PROVIDERS: ATTEND Radiology Radiation Oncology
DX: C34.31 Malignant neoplasm of lower lobe, right bronchus or lung (principal)

== ENCOUNTER 2017-06-24 11:56 | Outpatient (RCR) | payer MEDICARE, MEDICAID ==
--- NOTE | 2017-06-29 10:35 | RADONC ---
RADIATION ONCOLOGY PROGRESS NOTE DATE: 06/28/2017 CHART NUMBER: [id number] Ms. Worrell is presently at a dose of 5400 cGy to her right lung and mediastinum and is tolerating treatments quite well at this point with no significant difficulties related to her radiation therapy other than esophagitis. REVIEW OF SYSTEMS: The patient's review of systems is positive for esophagitis, but is otherwise unchanged. She denies nausea, vomiting, fevers, chills, night sweats, diplopia, headaches, anxiety or depression, anorexia, weight loss, visual disturbances, chest pain, urinary or bowel difficulties, bone pain, or neurological problems. PHYSICAL EXAMINATION: The patient's skin is in good condition with no evidence of moist or dry desquamation. The remainder of her physical exam remains unchanged. Ms. Worrell is tolerating treatments quite well and radiation will continue as scheduled.
--- NOTE | 2017-07-03 08:43 | RADONC ---
RADIATION ONCOLOGY TREATMENT SUMMARY DATE: 07/01/2017 CHART NUMBER: [id number] DIAGNOSIS: Lung cancer. STAGE: III, recurrent. ECOG PERFORMANCE STATUS: 2. TREATMENT SUMMARY: Ms. Worrell is a delightful 61-year-old white female with the diagnosis of recurrent moderate to poorly differentiated adenocarcinoma of the right lower lobe who presented to us make that for consideration of external beam radiation therapy to her recurrent lung disease as well as central mediastinal spread in an attempt to achieve some type of local control. We treated the patient to her recurrence site as well as mediastinum for a dose of 5940 cGy delivered in 33 fractions of 180 cGy each over 60 elapsed days from 05/02/2017 through 07/01/2017. The patient was treated on the linear accelerator utilizing a 18 MV photon beam via 3-D conformal technique. Great care was taken in order to maintain all structures within their tolerance limits. I had hoped to deliver a somewhat higher dose of radiation, but we were unable to achieve a greater dose without sacrificing critical lung volume. We therefore stopped at this dose of 5940 cGy. Ms. Worrell tolerated her treatments quite well with no significant difficulties related to her radiation therapy. She was able complete therapy as prescribed. I have scheduled the patient to see me again in 1 month for further followup. She will also continue to be followed by her other physicians as well. cc: MD Arabella Son MD Robert Johnson, MD Ryan Tyler, MD
[2017-08-17] MEDS ORDERED: LEVA1TAB2 PO (14:02)
== END 2017-07-23 ==
LOC: M ONCR 11:56
PROVIDERS: ATTEND Radiology Radiation Oncology
DX: C34.31 Malignant neoplasm of lower lobe, right bronchus or lung (principal)

== ENCOUNTER → 2017-08-02 | Outpatient (REF) | payer MEDICARE, MEDICAID ==
[~2017-08-02] MED LIST changes: +CLOT1CRE6 TOP; +KEYT1INJ IV; +LEVA1TAB2 PO; +NYST10CR TOP; +NYST1POW9 TOP
[2017-08-02 15:44] LABS: FREE T4 1.07 NG/DL (0.76-1.46)
== END ==
LOC: M LAB REF 12:44
PROVIDERS: ATTEND Internal Medicine Medical Oncology
DX: C34.90 Malignant neoplasm of unspecified part of unspecified bronchus or lung (principal); E03.2 Hypothyroidism due to medicaments and other exogenous substances

== ENCOUNTER 2017-08-22 14:02 | Inpatient (IN) | payer MEDICARE, MEDICAID ==
[~2017-08-22] VITALS: Ht 149.9 cm; Wt 97.5 kg
[2017-08-22] MEDS: predniSONE 20 MG TAB PO SCH (09:00)
[~2017-08-22 14:02] MED LIST changes: -CLOT1CRE6 TOP; -KEYT1INJ IV; -NYST10CR TOP; -NYST1POW9 TOP
[2017-08-22] MEDS ORDERED: IPRATROPIUM 0.5MG/ALBUTEROL 2.5MG INH SOL UD 3ML (DUONEB)(J7620) NEB ONE (15:00)
[2017-08-22] MEDS ORDERED: NS 500 ML IV ONE (15:00)
[2017-08-22] MEDS ORDERED: ALBUTEROL SULFATE 2.5 MG/0.5 ML INH NEB SOLN INH ONE (15:00)
[2017-08-22] MEDS ORDERED: methylPREDNISolone INJ 125 MG/2 ML VIAL (J2930) IV ONE (15:00)
[2017-08-22 15:17] LABS: ABG BASE EXCESS -6.9 (-2.0-2.0); ABG HCO3 16.3 MEQ/L (22.0-26.0); ABG PARTIAL PRESSURE CO2 26.9 mmHg (35.0-45.0); ABG PARTIAL PRESSURE O2 143.3 mmHg (75.0-100.0); ABG TOTAL CO2 17.1 MEQ/L (23.0-31.0); ABG pH (ARTERIAL) 7.399 UNITS (7.350-7.450)
[2017-08-22 15:37] LABS: BASO # 0.1 10^3/uL (0.0-0.2); BASO % 0.5 % (0.0-1.0); EOS # 0.3 10^3/uL (0.0-0.50); EOS % 2.9 % (0.0-3.0); IMMATURE GRANULOCYTE % 0.8 % (0-0); LYMPH # 0.6 10^3/uL (1.5-4.5); LYMPH % 5.1 % (24.0-44.0); MEAN CORPUSCULAR HEMOGLOBIN 29.5 pg (27.0-33.0); MEAN CORPUSCULAR HGB CONC 32.5 g/dl (32.0-36.5); MEAN CORPUSCULAR VOLUME 90.8 fl (80.0-96.0); MONO # 1.1 10^3/uL (0.0-0.8); MONO % 9.7 % (0.0-5.0); PLATELET COUNT, AUTOMATED 290 10^3/uL (150-450); RED CELL DISTRIBUTION WIDTH 14.4 % (11.5-14.5); WHITE BLOOD COUNT 11.1 10^3/uL (4.0-10.0)
[2017-08-22 16:11] LABS: ALBUMIN 2.9 GM/DL (3.2-5.2); ALKALINE PHOSPHATASE 224 U/L (45-117); ALT/SGPT 23 U/L (12-78); ANION GAP 11 MEQ/L (8-16); AST/SGOT 21 U/L (7-37); BILIRUBIN,DIRECT 0.1 MG/DL (0.0-0.2); BILIRUBIN,TOTAL 0.4 MG/DL (0.2-1.0); BLOOD UREA NITROGEN 41 MG/DL (7-18); CALCIUM LEVEL 9.2 MG/DL (8.8-10.2); CARBON DIOXIDE LEVEL 21 MEQ/L (21-32); CHLORIDE LEVEL 107 MEQ/L (98-107); GLOMERULAR FILTRATION RATE 16.7 (>45); GLUCOSE, FASTING 127 MG/DL (80-110); POTASSIUM SERUM 4.6 MEQ/L (3.5-5.1); SODIUM LEVEL 139 MEQ/L (136-145); THYROXINE (T4) 9.4 UG/DL (4.5-12.0); TOTAL PROTEIN 7.7 GM/DL (6.4-8.2)
[2017-08-22] MEDS ORDERED: PIPERACILLIN/TAZOBACTAM SOD 4.5 GM in D5W 50 ML IV ONE (16:30)
[2017-08-22] MEDS ORDERED: VANCOMYCIN HCL 1,000 MG, VIAL MATE ADAPTER 1 EACH in D5W 250 ML IV ONE (16:30)
[2017-08-22] MEDS ORDERED: PIPERACILLIN/TAZOBACTAM SOD 3.375 GM in D5W 50 ML IV ONE (16:45)
[2017-08-22] MEDS ORDERED: MORPHINE 2 MG/ML 1ML SYRINGE IV PRN ×2 (17:00→18:15)
[2017-08-22] MEDS ORDERED: ACETAMINOPHEN TAB 650MG DOSE (2X325MG) PO PRN (17:00)
--- NOTE | 2017-08-22 17:57 | REP ---
CHEST, PORTABLE: AP portable view of the chest is performed and compared to prior study of 08/17/2017. Left lung remains clear. There is mild shift of the heart and mediastinal structures to the right with right paramediastinal fibrotic changes appearing stable. There is focal patchy parenchymal opacity in the right lung base which may represent fibro atelectatic change versus infiltrate. All of these findings are unchanged since the prior exam of 08/17/2017. Signed by Dejan Ovalle MD 08/23/2017 01:16 P
[2017-08-22] MEDS ORDERED: IPRATROPIUM 0.5MG/ALBUTEROL 2.5MG INH SOL UD 3ML (DUONEB)(J7620) NEB PRN (18:00)
[2017-08-22] MEDS ORDERED: NYST1POW9 TOP (18:06)
[2017-08-22] MEDS ORDERED: KEYT1INJ IV (18:06)
[2017-08-22] MEDS ORDERED: CLOP75TA2 PO (18:06)
[2017-08-22] MEDS ORDERED: LEVA1TAB2 PO (18:06)
[2017-08-22] MEDS ORDERED: CLOT1CRE6 TOP (18:06)
[2017-08-22] MEDS ORDERED: NYST10CR TOP (18:06)
--- NOTE | 2017-08-22 18:07 | REP ---
CT of the chest without IV contrast: Comparisons are 09/27/2016 and 02/21/2017. The patients known right lower lobe lung mass is again identified. There is now bilateral paramediastinal honeycombing and right lower lobe honeycombing compatible with postradiation change, not present previously. There is no pleural effusion. No other lung masses are identified. There is no mediastinal or axillary adenopathy. In the absence of IV contrast the study is insensitive for hilar adenopathy per thoracic aorta is unremarkable. Cardiac size is normal. There is no pericardial effusion. The visualized upper abdominal contents are unremarkable. There is no adrenal mass. Impression: Right lower lobe mass. Paramediastinal honeycombing bilaterally. Right lower lobe honeycombing. This is compatible with postradiation change. Signed by Dejan Pichardo MD 08/22/2017 05:59 P
[2017-08-22] MEDS ORDERED: PIPERACILLIN/TAZOBACTAM SOD 3.375 GM in D5W 50 ML IV SCH (18:15)
[2017-08-22] MEDS ORDERED: ONDANSETRON 4MG/2ML VIAL (J2405) IV PRN (18:15)
[2017-08-22] MEDS ORDERED: BISACODYL 5 MG TAB PO PRN (18:15)
[2017-08-22] MEDS ORDERED: NYSTATIN 100,000 UNITS/GM TOPICAL PWD 15 GM TOP PRN (18:30)
[2017-08-22] MEDS ORDERED: NYSTATIN CREAM 15 GM TOP PRN (18:30)
[2017-08-22] MEDS ORDERED: FAMOTIDINE 20 MG TAB PO PRN (18:30)
[2017-08-22] MEDS ORDERED: CLOTRIMAZOLE 1% TOPICAL CREAM 30GM TOP PRN (18:30)
[2017-08-22] MEDS: IPRATROPIUM 0.5MG/ALBUTEROL 2.5MG INH SOL UD 3ML (DUONEB)(J7620) NEB SCH (19:38)
[2017-08-22] MEDS ORDERED: GLUCAGON FOR INJ 1 MG VIAL (J1610) SC PRN (19:45)
[2017-08-22] MEDS ORDERED: NS 1,000 ML IV SCH (19:45)
[2017-08-22] MEDS ORDERED: GLUCOSE 4 GM CHEW TABLET PO PRN (19:45)
[2017-08-22] MEDS ORDERED: DEXTROSE 50% 50 ML SYRINGE IV PRN (19:45)
[2017-08-22 20:09] LABS: ERYTHROCYTE SEDIMENTATION RATE 70 mm/hr (0-30)
[2017-08-22 21:00] VITALS: BP 131/59
[2017-08-22] MEDS: ENOXAPARIN 30 MG/0.3 ML SYR (J1650) SC SCH (21:00)
--- NOTE | 2017-08-22 21:09 | HPE ---
DATE OF ADMISSION: 08/22/2017 TIME PATIENT WAS SEEN: At around 4:00 p.m. PRIMARY CARE PROVIDER: Dr. Li ONCOLOGIST: Dr. Shah PROFESSIONAL HOUSING CONSULTANT: Dr. Wells CHIEF COMPLAINT: Increased shortness of breath and cough. HISTORY OF THE PRESENT ILLNESS: A 62-year-old female with a past medical history of adenocarcinoma of the right lung, status post radiation and chemotherapy, follows with Dr. Shah and Dr. 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 Valero, hyperlipidemia, obstructive sleep apnea, hypertension, history of nicotine dependence; however, the patient quit 8 months ago, multiple sclerosis, depression, history of splenectomy, osteopenia and gastroesophageal reflux disease (GERD), also urge incontinence, presented with increased shortness of breath and cough. Per patient, she has been having increased trouble breathing for roughly 1 week. She has seen primary care provider and was given levofloxacin for 5 days without any help. She still produces green sputum. Patient admits to chills. Denies any fever. Denies any nausea, vomiting, diarrhea, constipation. Denies any problems with urination. The patient just started chemotherapy, Keytruda, on 08/02/2017, and her last irradiation was on 07/01/2017. Patient admits to granddaughter being sick recently with asthma. Otherwise, no recent traveling. ALLERGIES: HYDROCODONE and OXYCODONE. Per patient, it makes her have hives and feels like bugs crawling under her skin. HOME MEDICATIONS: - aspirin 81 mg one tablet by mouth nightly - atorvastatin 80 mg one tablet by mouth nightly - calcitriol 0.25 mcg one tablet by mouth daily - Plavix 75 mg one tablet by mouth nightly - clotrimazole 1% cream topically daily as needed - fluoxetine 40 mg one tablet by mouth twice a day - glimepiride 0.5 mg one tablet by mouth twice a day - Keytruda three times per week - levofloxacin 500 mg one tablet by mouth every night - metoprolol tartrate 25 mg one tablet by mouth twice a day - Nystatin powder once topically daily as needed - Zofran 4 mg one tablet by mouth twice a day as needed - pantoprazole 40 mg one tablet by mouth twice a day - ranitidine one tablet by mouth twice a day as needed - VESIcare 10 mg one tablet by mouth daily - Tylenol Extra-Strength 500-25 mg two tablet by mouth nightly PAST MEDICAL HISTORY: 1. Coronary artery disease, status post PA and two stents. 2. Adenocarcinoma of the right lung, status post radiation therapy, currently receiving chemotherapy. 3. History of falls. 4. 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 5. COPD, emphysema. 6. Hyperlipidemia. 7. Obstructive sleep apnea. 8. Hypertension. 9. History of nicotine dependence; however, recently quit around 8 months ago. 10. Multiple sclerosis. 11. Depression. 12. History of Morbid Obesity 13. Chronic kidney disease, stage IV. 14. Osteopenia. 15. Gastroesophageal reflux disease (GERD). 16. Urinary urgency, incontinence. 17. Vitamin D deficiency. 18. Systolic heart failure with ejection fraction of 40% back in November of 2014. PAST SURGICAL HISTORY: 1. section times two. 2. Left oophorectomy. 3. Left breast biopsy. 4. Lung biopsy. 5. Right eye cataract surgery. FAMILY HISTORY: Patient's father had lung cancer, from it. Mother had Alzheimer's. Sister had lung cancer as well, as well as Parkinson's disease. SOCIAL HISTORY: Patient denies any smoking, quit 8 months ago, used to smoke one pack per day for 48 years. Denies any drinking or recreational drug use. REVIEW OF SYSTEMS: Patient denies any recent weight changes, any recent traveling. Admits to granddaughter has recent asthma. Admits to chills. Denies any fever. HEENT: Denies any changes with vision, smell, hearing or taste. Admits to a cough, however, and a green sputum production., CARDIOVASCULAR: Admits to shortness of breath and chest pain; however, chest pain was worse with breathing. Admits to coronary artery disease; however, status post PA and stents. PULMONARY: Admits to COPD, emphysema. Admits to lung cancer on the right side. GASTROINTESTINAL: Denies any abdominal pain, nausea, vomiting, diarrhea, constipation or any blood in the stool. GENITOURINARY: Denies any problem with urination, burning on urination or blood in the urine. MUSCULOSKELETAL: Denies any pain anywhere else besides the chest pain. ENDOCRINE: Denies any heat intolerance. Admits to feeling chill all the time. HEMATOLOGY/ONCOLOGY: Patient does have adenocarcinoma of the right lung, status post radiation therapy and recently started on Keytruda for chemotherapy. NEUROLOGIC: Denies any change of sensations, any weakness on any one side of the body. SKIN: Denies any abnormal rash or ulceration. PSYCHIATRIC: Admits to anxiety, depression. PHYSICAL EXAMINATION: VITAL SIGNS: Temperature 97.5, heart rate 97, respirations 18, blood pressure 152/81, oxygen was saturating at 92% on room air. At the time of interview, the patient was saturating at 96% on 2 liters of nasal cannula. GENERAL: The patient is a morbidly obese middle-aged female who looks older than her age, who was alert, awake, oriented times three, does not appear to be in distress, lying comfortably in bed with the head elevated at a 45-degree angle. HEENT: Normocephalic, atraumatic. Extraocular motor intact. Mucosa moist. NECK: Supple. No neck lymphadenopathy. CARDIOVASCULAR: Regular rate and rhythm. Normal S1, S2. No murmurs. LUNGS: Slight wheezing bilaterally. ABDOMEN: Positive bowel sounds, soft, nontender, nondistended. No peritoneal signs. No ecchymosis. EXTREMITIES: No edema, clubbing or cyanosis. SKIN: Warm and dry. NEUROLOGICAL: Cranial nerves II-XII intact. No focal neurologic deficit. LABORATORY DATA: WBC 11.1, hemoglobin 14.4, hematocrit 44.3 with a platelet count of 290 and MCV of 90.8. Sodium 139, potassium 4.6, bicarbonate 21, BUN 41, creatinine 3, GFR 16.7, fasting glucose 127, lactic acid 2.1, calcium 9.2, total bilirubin 0.4, direct bilirubin 0.1, AST 21, ALT 23, alkaline phosphatase 224, total CK 35, CK-MB 1, troponin less than 0.02. BNP was 1931, total protein 7.7, albumin 2.9, TSH 1, T4 9.4. ABG shows a pH of 7.39, pCO2 26.9, pO2 143.3, oxygen was saturating at 99.3% with base excess of -6.9. Blood culture times two is pending. Influenza has been negative. Chest x-ray shows mild shift of the heart and mediastinal structure to the right side with right paramediastinal fibrotic changes, appears to be stable. A focal patchy parenchymal opacity of the right lung base may represent fibro- atelectatic changes versus infiltrate. All findings are unchanged from prior examination. CT of the chest without contrast shows a right lower lobe mass. Paramediastinal honeycombing bilaterally. Compatible with postradiation change. ASSESSMENT AND PLAN: A 62-year-old female with a past medical history of adenocarcinoma of the right lung, status post radiation therapy, currently undergoing chemotherapy, also coronary artery disease, status post myocardial infarction and stents, chronic kidney disease, stage IV, type 2 diabetes, chronic obstructive pulmonary disease, emphysema, hypertension, multiple sclerosis, presented with: 1. Shortness of breath and cough. Possibly secondary to community-acquired pneumonia in a host with high risk for methicillin-resistant Staphylococcus aureus (MRSA) and also Pseudomonas. In addition, was immunocompromised from splenectomy. Patient also has failed levofloxacin therapy outpatient. Therefore, will start the patient on Zosyn, renally dosed, 2.25 grams intravenously (IV) every 6 hours. In addition, will also start the patient on steroids due to possibly Keytruda-induced pneumonitis vs radiation induced pneumonitis versus COPD exacerbation. Patient did admit to some wheezing prior to admission and was improved with IV steroids in the emergency room. Otherwise, continue as needed oxygen, titrate between 88 and 92% . In addition, patient's shortness of breath possibly could be caused by the right lung mass. Will continue to monitor. In addition, the patient expressed that she would like to be DO NOT RESUSCITATE/DO NOT INTUBATE (DNR/DNI); however, she would like to wait for her family to come in before she signs the paper. 2. Leukocytosis with WBC of 11.1, possibly secondary to the pneumonia versus pneumonitis. Continue to monitor. 3. Acute kidney injury, creatinine 3.0, on chronic kidney disease with a creatinine of 2.5, stage IV. Possibly represents Keytruda-induced nephritis versus due to community-acquired pneumonia. Will continue to monitor. Will place the patient on gentle hydration. 4. Elevated BNP of 1931. However, clinically there was no peripheral edema. Will obtain echocardiogram to check for structural heart disease and the degree of heart failure. The patient does have a history of systolic heart failure with ejection fraction of 40% back in 2015. Will monitor. 5. Tachycardic with a heart rate of 113, possibly secondary to shortness of breath. Continue to monitor. 6. History of coronary artery disease, status post myocardial infarctions and stents. Continue aspirin and Plavix. 7. History of adenocarcinoma of the right lung. Follows with Dr. Shah. Recently started on Keytruda 20 days ago. Patient's increased shortness of breath is concerning due to side effect of Keytruda could be pneumonitis. Will continue to monitor. 8. History of COPD, emphysema. Follows with Dr. Valero. Continue DuoNebs. 9. History of hyperlipidemia. Continue home statin. 10. Type 2 diabetes. Continue insulin sliding scale. 11. Obstructive sleep apnea. Continue GLEN protocol. 12. Hypertension. Continue metoprolol. 13. History of multiple sclerosis. Continue to monitor. 14. History of depression. Continue fluoxetine. 15. History of splenectomy. Increases her chance for encapsulated infection. Continue to monitor. 16. Chronic kidney disease, stage IV. Continue to monitor. 17. Osteopenia. Patient will be placed on fall precautions. She also does have a history of frequent falls. 18. Urge incontinence. Continue home medication with VESIcare. 19. Vitamin D deficiency. Continue to monitor. 20. Morbid Obesity which complicates care. Will monitor. 21. Deep vein thrombosis (DVT) prophylaxis with Lovenox 30 mg subcutaneously daily. Fluids, electrolytes and nutrition. Will start very gentle hydration of normal saline at 30 mL per hour. Due to elevated BNP, concerning for heart failure. Patient's electrolytes are currently at goal. Will start the patient on a carbohydrate-consistent, sodium-restricted, and fluid-restricted diet. DISPOSITION: Patient has increased shortness of breath, etiology not entirely clear, possibly multifactorial due to lung cancer versus community-acquired pneumonia versus side effect from Keytruda or radiation. The patient has been discussed with attending doctor, Dr. Vanessa. My preceptor for this patient encounter was Dr. Vanessa. The preceptor was physically present in the building during the encounter and was fully available. As needed, all aspects of the patient interview, examination, medical decision making process, and medical care plan development were reviewed and approved by the preceptor. The preceptor is aware and concurs with the plan as stated in the body of this note and will attest to such by his/her co-signature. LUIS
[2017-08-22] MEDS: HumaLOG INSULIN (NovoLOG) PER UNIT SC SCH (22:00)
[2017-08-22] MEDS: SENOKOT S TAB PO SCH (22:00)
[2017-08-22] MEDS: FLUoxetine 20 MG CAP PO SCH (22:00)
[2017-08-22] MEDS: PANTOPRAZOLE 40MG TAB (PROTONIX) PO SCH (22:00)
[2017-08-22] MEDS: ASPIRIN 81 MG ENTERIC TAB PO SCH (22:00)
[2017-08-22] MEDS: ATORVASTATIN 20 MG TAB PO SCH (22:00)
[2017-08-22] MEDS: CLOPIDOGREL 75 MG TAB PO SCH (22:00)
[2017-08-22] MEDS: METOPROLOL TART 25 MG TABLET PO SCH (22:00)
[2017-08-23 00:25] VITALS: BP 111/62
[2017-08-23] MEDS: PIPERACILLIN/TAZOBACTAM SOD 2.25 GM in D5W 50 ML IV SCH ×4 (01:12→18:26)
[2017-08-23] MEDS: IPRATROPIUM 0.5MG/ALBUTEROL 2.5MG INH SOL UD 3ML (DUONEB)(J7620) NEB SCH ×4 (02:00→19:49)
[2017-08-23] MEDS ORDERED: methylPREDNISolone INJ 125 MG/2 ML VIAL (J2930) IV SCH (04:00)
[2017-08-23 06:00] VITALS: BP 137/70
[2017-08-23 06:05] LABS: BASO % 0.1 % (0.0-1.0); IMMATURE GRANULOCYTE % 0.4 % (0-0); LYMPH # 0.4 10^3/uL (1.5-4.5); LYMPH % 3.3 % (24.0-44.0); MEAN CORPUSCULAR HEMOGLOBIN 29.1 pg (27.0-33.0); MEAN CORPUSCULAR VOLUME 90.9 fl (80.0-96.0); MONO # 0.1 10^3/uL (0.0-0.8); MONO % 1.1 % (0.0-5.0); NEUTROPHILS # 10.4 10^3/uL (1.8-7.7); NEUTROPHILS % 95.1 % (36.0-66.0); PLATELET COUNT, AUTOMATED 272 10^3/uL (150-450); RED CELL DISTRIBUTION WIDTH 14.6 % (11.5-14.5); WHITE BLOOD COUNT 10.9 10^3/uL (4.0-10.0)
[2017-08-23 06:20] LABS: CALCIUM LEVEL 8.9 MG/DL (8.8-10.2); CREATININE FOR GFR 3.07 MG/DL (0.55-1.02); GLOMERULAR FILTRATION RATE 16.3 (>45); POTASSIUM SERUM 4.7 MEQ/L (3.5-5.1)
--- NOTE | 2017-08-23 09:01 | ECGEPIP ---
Stationary ECG Study [facility] - ED Test Date: 2017-08-22 Pat Name: TYRA FAJARDO Department: Room: - Gender: F Community Engagement Leader: AF : 1955 Requested By: Genaro Larios Order Number: [id number] Reading MD: Robert Smith Measurements Intervals [place] Rate: 91 P: 63 IN: 155 QRS: 34 QRSD: 98 T: 9 QT: 367 QTc: 453 Interpretive Statements SINUS RHYTHM POSSIBLE PRIOR INFERIOR INFARCT SIMILAR TO 02/21/17 Electronically Signed On 08-23-2017 9:01:00 EDT by Robert Smith
[2017-08-23] MEDS: HumaLOG INSULIN (NovoLOG) PER UNIT SC SCH ×4 (10:20→20:31)
[2017-08-23] MEDS: predniSONE 20 MG TAB PO SCH (10:21)
[2017-08-23] MEDS: SENOKOT S TAB PO SCH ×2 (10:21→20:29)
[2017-08-23] MEDS: PANTOPRAZOLE 40MG TAB (PROTONIX) PO SCH ×2 (10:24→20:30)
[2017-08-23] MEDS: SOLIFENACIN 5 MG TAB PO SCH (10:24)
[2017-08-23] MEDS: FLUoxetine 20 MG CAP PO SCH ×2 (10:24→20:30)
[2017-08-23] MEDS: CALCITRIOL 0.25 MCG CAP (S0169) PO SCH (10:25)
[2017-08-23] MEDS: METOPROLOL TART 25 MG TABLET PO SCH ×2 (10:26→20:29)
--- NOTE | 2017-08-23 14:55 | IPN ---
DATE: 08/23/2017 Destiny was admitted overnight by the hospitalist for community acquired pneumonia and radiation pneumonitis. She feels better on her current prescribed therapy. She is followed by Dr. Shah and Dr. Burns. Dr. Valero follows her for her chronic obstructive pulmonary disease (COPD). She has a history of adenocarcinoma of the right lung status post radiation therapy, currently receiving chemotherapy, type 2 diabetes, stage IV chronic kidney disease and congestive heart failure (CHF), reduced ejection fraction of 40%. PHYSICAL EXAMINATION: Afebrile, vital signs stable, 137/70. Lungs few rhonchi and wheezes. Heart regular rate and rhythm. Abdomen soft, nontender, no masses. No peripheral edema. Alert and oriented, in no distress. LABORATORIES: White count is 10.9, hemoglobin is 12.8, platelets 270. GFR is 16, which looks to be her baseline. Sodium and potassium normal. IMPRESSION: 1. Community acquired pneumonia versus radiation pneumonitis. She is improved on IV Zosyn and prednisone 40 mg daily, nebulized bronchodilator. 2. Diabetes. She is on fingersticks with coverage. 3. Acute kidney injury. Her creatinine is at baseline. 4. History of heart failure. Reduced ejection fraction of 40%. BNP was elevated. She does not look volume overloaded on exam. 5. Coronary artery disease status post myocardial infarction with coronary artery stents. Continue aspirin and Plavix. 6. Lung cancer. Follows with Dr. Shah. I think the hospitalist reached out to her last night.
[2017-08-23] MEDS: ENOXAPARIN 30 MG/0.3 ML SYR (J1650) SC SCH (20:29)
[2017-08-23] MEDS: CLOPIDOGREL 75 MG TAB PO SCH (20:29)
[2017-08-23] MEDS: ATORVASTATIN 20 MG TAB PO SCH (20:29)
[2017-08-23] MEDS: ASPIRIN 81 MG ENTERIC TAB PO SCH (20:30)
--- NOTE | 2017-08-23 21:17 | ECHO ---
DATE OF PROCEDURE: 08/23/2017 REFERRING PHYSICIAN: Damari Jansen MD, Edgardo Li MD CC: Thong Wells MD INDICATION: Dyspnea. HEIGHT: 150 cm WEIGHT: 95 kg DIMENSIONS: IVS: 1.1 LV: 4.4 LVPW: 1.0 LA: 3.0 Aorta: 2.4 FINDINGS: The study is of difficult technical quality again corresponding to patient's body habitus. Left ventricle is of normal size and grossly normal systolic function. I estimate ejection fraction (EF) around 60-65%. Right ventricle also appears normal size and systolic function. Both atria appear grossly normal. Aortic valve is mildly sclerotic, but it has three cusps and normal mobility. Mitral valve appears structurally normal based on somewhat limited views. I do not appreciate any restriction of leaflet mobility or any evidence for mitral valve prolapse. Tricuspid valve appears normal. Pulmonic valve was not well seen. No pericardial effusion is noted. Inferior vena cava is normal size. Aortic root is normal. Aortic arch was poorly visualized. Abdominal aorta has normal caliber, but there is evidence for mild atherosclerosis. Doppler interrogation of aortic valve reveals no stenosis or insufficiency. There is approximately moderate mitral insufficiency with very eccentric jet oriented towards lateral wall. I estimate the severity of mitral regurgitation (MR) is approximately moderate, but it potentially can be even more severe. There is mild tricuspid insufficiency. Calculated pulmonary artery pressure within normal limits based on fair quality tricuspid regurgitation (TR) jet. Mitral inflow pattern and tissue Doppler imaging of mitral annulus reveal grade 1 diastolic dysfunction. E velocity of mitral inflow is 82 cm/s, A velocity 106 cm/s, E prime septal 7.2 cm/s and E prime lateral 6.0 cm/s. CONCLUSIONS: 1. Study is of fair technical quality. 2. Normal LV size with normal LV systolic function and grade 1 diastolic dysfunction. 3. Aortic sclerosis. 4. Structurally normal-appearing mitral valve, but at least moderate eccentric mitral insufficiency, very likely due to mitral valve prolapse that was not well seen by 2-D imaging. 5. Normal CVP and likely normal PAP. COMMENT: Subacute bacterial endocarditis (SBE) prophylaxis is not recommended. If there is a clinical question about significance of mitral insufficiency then transesophageal echocardiogram may provide additional information. [facility]
[2017-08-23 22:00] VITALS: BP 128/61
[2017-08-24] MEDS: PIPERACILLIN/TAZOBACTAM SOD 2.25 GM in D5W 50 ML IV SCH ×4 (00:25→18:36)
[2017-08-24] MEDS: IPRATROPIUM 0.5MG/ALBUTEROL 2.5MG INH SOL UD 3ML (DUONEB)(J7620) NEB SCH ×4 (00:33→20:00)
[2017-08-24 06:00] VITALS: BP 141/67
[2017-08-24 06:13] LABS: BASO % 0.1 % (0.0-1.0); IMMATURE GRANULOCYTE % 0.7 % (0-0); LYMPH # 0.5 10^3/uL (1.5-4.5); MEAN CORPUSCULAR HEMOGLOBIN 29.6 pg (27.0-33.0); MEAN CORPUSCULAR HGB CONC 32.2 g/dl (32.0-36.5); MEAN CORPUSCULAR VOLUME 91.9 fl (80.0-96.0); MONO # 1.5 10^3/uL (0.0-0.8); MONO % 6.4 % (0.0-5.0); NEUTROPHILS # 20.8 10^3/uL (1.8-7.7); NEUTROPHILS % 90.8 % (36.0-66.0); PLATELET COUNT, AUTOMATED 270 10^3/uL (150-450); RED CELL DISTRIBUTION WIDTH 14.6 % (11.5-14.5); WHITE BLOOD COUNT 22.9 10^3/uL (4.0-10.0)
[2017-08-24 06:25] LABS: CALCIUM LEVEL 8.7 MG/DL (8.8-10.2); CREATININE FOR GFR 2.79 MG/DL (0.55-1.02); GLOMERULAR FILTRATION RATE 18.2 (>45); POTASSIUM SERUM 4.5 MEQ/L (3.5-5.1)
[2017-08-24] MEDS: HumaLOG INSULIN (NovoLOG) PER UNIT SC SCH ×4 (09:17→21:00)
[2017-08-24] MEDS: SENOKOT S TAB PO SCH ×2 (09:18→21:43)
[2017-08-24] MEDS: FLUoxetine 20 MG CAP PO SCH ×2 (09:18→21:43)
[2017-08-24] MEDS: PANTOPRAZOLE 40MG TAB (PROTONIX) PO SCH ×2 (09:18→21:44)
[2017-08-24] MEDS: CALCITRIOL 0.25 MCG CAP (S0169) PO SCH (09:18)
[2017-08-24] MEDS: predniSONE 20 MG TAB PO SCH (09:18)
[2017-08-24] MEDS: SOLIFENACIN 5 MG TAB PO SCH (09:19)
[2017-08-24] MEDS: METOPROLOL TART 25 MG TABLET PO SCH ×2 (09:25→21:44)
--- NOTE | 2017-08-24 12:07 | IPNPDOC ---
Subjective Date Seen The patient was seen on 08/24/17. Subjective Chief Complaint/HPI The patient is a 62-year-old female admitted with a reason for visit of Non Small Cell Cancer Of Right Lung,Pneumonia. Events since last encounter Slow improvement. Desats with ambulation Constitutional: Denies: Chills, Fever Pulmonary: Reports: Dyspnea, Denies: Cough Cardiovascular: Denies: Chest Pain, Palpitations Gastrointestinal: Denies: Nausea, Vomiting, Abdominal Pain, Diarrhea, Constipation Objective Physical Examination General Exam: Positive: Alert, No Acute Distress Chest Exam: Positive: Clear to auscultation, Negative: Rales, Rhonchi, Wheezing Heart Exam: Positive: Rate Normal, Regular Rhythm Abdomen Exam: Positive: Normal bowel sounds, Soft, Negative: Tenderness Extremity Exam: Negative: Edema Assessment /Plan Problems (1) Pneumonia Status: Acute Response to Treatment: Improving Problem Text: Suspect radaition pneumonitis WBC up to 22, but clinically improving on Prednisone and antibiotics (Zosyn) Still desats with ambulation on oxygen Encourage IS (2) Non-small cell cancer of right lung Status: Chronic Problem Text: Per Oncology - she missed her Chemo appt yesterday (3) DM2 (diabetes mellitus, type 2) Status: Chronic Response to Treatment: Stable (4) CAD (coronary artery disease) Status: Chronic Response to Treatment: Stable Plan/VTE VTE Prophylaxis Ordered?: Yes (Lovenox) VS, I&O, 24H, Fishbone Vital Signs/I&O Vital Signs Date Time Temp Pulse Resp B/P (MAP) Pulse Ox O2 Delivery O2 Flow Rate FiO2 08/24/17 09:25 69 158/78 08/24/17 06:00 97.5 18 95 Room Air 08/23/17 22:00 2.0 I&O- Last 24 Hours up to 6 AM 08/25/17 06:00 Intake Total 240 ml Output Total 200 ml Balance 40 ml Laboratory Data 24H LABS Laboratory Tests 2 08/23/17 16:34: Bedside Glucose (Misc Panel) 174H 08/23/17 20:13: Bedside Glucose (Misc Panel) 189H 08/24/17 05:23: Immature Granulocyte % (Auto) 0.7H, White Blood Count 22.9H, Red Blood Count 4.22, Hemoglobin 12.5, Hematocrit 38.8, Mean Corpuscular Volume 91.9, Mean Corpuscular Hemoglobin 29.6, Mean Corpuscular Hemoglobin Concent 32.2, Red Cell Distribution Width 14.6H, Platelet Count 270, Neutrophils (%) (Auto) 90.8H, Lymphocytes (%) (Auto) 2.0L, Monocytes (%) (Auto) 6.4H, Eosinophils (%) (Auto) 0.0, Basophils (%) (Auto) 0.1, Neutrophils # (Auto) 20.8H, Lymphocytes # (Auto) 0.5L, Monocytes # (Auto) 1.5H, Eosinophils # (Auto) 0.0, Basophils # (Auto) 0.0 , Immature Granulocyte # (Auto) 0.2H, Nucleated Red Blood Cells % (auto) 0.0, Anion Gap 9, Glomerular Filtration Rate 18.2L, Blood Urea Nitrogen 47H, Creatinine 2.79H, Sodium Level 141, Potassium Level 4.5, Chloride Level 111H, Carbon Dioxide Level 21, Calcium Level 8.7L CBC/BMP Laboratory Tests 08/24/17 05:23 Red Blood Count 4.22, Mean Corpuscular Volume 91.9, Mean Corpuscular Hemoglobin 29.6, Mean Corpuscular Hemoglobin Concent 32.2, Red Cell Distribution Width 14.6 H, Neutrophils (%) (Auto) 90.8 H, Lymphocytes (%) (Auto) 2.0 L, Monocytes ( %) (Auto) 6.4 H, Eosinophils (%) (Auto) 0.0, Basophils (%) (Auto) 0.1, Neutrophils # (Auto) 20.8 H, Lymphocytes # (Auto) 0.5 L, Monocytes # (Auto) 1.5 H, Eosinophils # (Auto) 0.0, Basophils # (Auto) 0.0, Calcium Level 8.7 L Microbiology Microbiology 08/22/17 Blood Culture - Preliminary, Resulted No growth after 24 hours . All specim... 08/22/17 Blood Culture - Preliminary, Resulted No growth after 24 hours . All specim... 08/23/17 MRSA Screen - Final, Complete 08/23/17 Respiratory Virus Panel (PCR) ([facility]) - Final, Complete 08/22/17 Influenza Virus Type A Antigen - Final, Complete 08/22/17 Influenza Virus Type B Antigen - Final, Complete IVETT NGUYEN PA-C Aug 24, 2017 12:07
[2017-08-24 14:00] VITALS: BP 113/55
[2017-08-24] MEDS: ATORVASTATIN 20 MG TAB PO SCH (21:43)
[2017-08-24] MEDS: ASPIRIN 81 MG ENTERIC TAB PO SCH (21:43)
[2017-08-24] MEDS: CLOPIDOGREL 75 MG TAB PO SCH (21:43)
[2017-08-24] MEDS: ENOXAPARIN 30 MG/0.3 ML SYR (J1650) SC SCH (21:43)
[2017-08-24 22:00] VITALS: BP 118/60
[2017-08-25] MEDS: IPRATROPIUM 0.5MG/ALBUTEROL 2.5MG INH SOL UD 3ML (DUONEB)(J7620) NEB SCH ×4 (01:35→19:44)
[2017-08-25] MEDS: PIPERACILLIN/TAZOBACTAM SOD 2.25 GM in D5W 50 ML IV SCH ×4 (02:21→18:02)
[2017-08-25 06:00] VITALS: BP 116/60
[2017-08-25 06:41] LABS: BASO % 0.1 % (0.0-1.0); EOS % 0.1 % (0.0-3.0); IMMATURE GRANULOCYTE % 0.6 % (0-0); LYMPH # 0.7 10^3/uL (1.5-4.5); LYMPH % 3.4 % (24.0-44.0); MEAN CORPUSCULAR HEMOGLOBIN 29.3 pg (27.0-33.0); MEAN CORPUSCULAR HGB CONC 32.2 g/dl (32.0-36.5); MEAN CORPUSCULAR VOLUME 91.2 fl (80.0-96.0); MONO # 1.4 10^3/uL (0.0-0.8); NEUTROPHILS # 17.4 10^3/uL (1.8-7.7); NEUTROPHILS % 88.8 % (36.0-66.0); PLATELET COUNT, AUTOMATED 271 10^3/uL (150-450); RED CELL DISTRIBUTION WIDTH 14.7 % (11.5-14.5); WHITE BLOOD COUNT 19.6 10^3/uL (4.0-10.0)
[2017-08-25 07:01] LABS: CALCIUM LEVEL 9.3 MG/DL (8.8-10.2); CREATININE FOR GFR 3.04 MG/DL (0.55-1.02); GLOMERULAR FILTRATION RATE 16.5 (>45)
[2017-08-25 07:04] LABS: POTASSIUM SERUM 5.2 MEQ/L (3.5-5.1)
[2017-08-25] MEDS: HumaLOG INSULIN (NovoLOG) PER UNIT SC SCH ×4 (07:30→21:00)
[2017-08-25] MEDS: METOPROLOL TART 25 MG TABLET PO SCH ×2 (08:33→21:00)
[2017-08-25] MEDS: CALCITRIOL 0.25 MCG CAP (S0169) PO SCH (08:34)
[2017-08-25] MEDS: SENOKOT S TAB PO SCH ×2 (08:34→21:00)
[2017-08-25] MEDS: PANTOPRAZOLE 40MG TAB (PROTONIX) PO SCH ×2 (08:34→21:59)
[2017-08-25] MEDS: predniSONE 20 MG TAB PO SCH (08:35)
[2017-08-25] MEDS: FLUoxetine 20 MG CAP PO SCH ×2 (08:35→21:59)
[2017-08-25] MEDS: SOLIFENACIN 5 MG TAB PO SCH (08:38)
--- NOTE | 2017-08-25 10:23 | IPNPDOC ---
Subjective Date Seen The patient was seen on 08/25/17. Subjective Chief Complaint/HPI The patient is a 62-year-old female admitted with a reason for visit of Non Small Cell Cancer Of Right Lung,Pneumonia. Events since last encounter Reports diarrhea all night long. Tired today. Still SOB with ambulation and sats drop into 80s on NC with ambulation. Constitutional: Denies: Chills, Fever Pulmonary: Reports: Dyspnea, Denies: Cough Cardiovascular: Denies: Chest Pain, Palpitations Gastrointestinal: Reports: Diarrhea, Denies: Nausea, Vomiting, Abdominal Pain, Constipation Objective Physical Examination General Exam: Positive: Alert, No Acute Distress Chest Exam: Positive: Clear to auscultation, Negative: Rales, Rhonchi, Wheezing Heart Exam: Positive: Rate Normal, Regular Rhythm Abdomen Exam: Positive: Normal bowel sounds, Soft, Negative: Tenderness Extremity Exam: Negative: Edema Assessment /Plan Problems (1) Diarrhea Status: Acute Problem Text: Check GI panel (2) Pneumonia Status: Acute Response to Treatment: Improving Problem Text: Suspect radaition pneumonitis WBC was up to 22, but trending down slightly today. Continue Prednisone and antibiotics (Zosyn) Still desats with ambulation on oxygen Encourage IS (3) Chronic kidney disease Status: Chronic Response to Treatment: Worse Problem Text: Baseline creatinine = approx. 2.5. Cre = 3 today. May be a little dehydrated related to diarrhea overnight. Start slow rate IVF. (4) Non-small cell cancer of right lung Status: Chronic Problem Text: Per Oncology - she missed her Chemo appt yesterday (5) DM2 (diabetes mellitus, type 2) Status: Chronic Response to Treatment: Stable Problem Text: continue SSI (6) CAD (coronary artery disease) Status: Chronic Response to Treatment: Stable Plan/VTE VTE Prophylaxis Ordered?: Yes (Lovenox) VS, I&O, 24H, Fishbone Vital Signs/I&O Vital Signs Date Time Temp Pulse Resp B/P (MAP) Pulse Ox O2 Delivery O2 Flow Rate FiO2 08/25/17 08:43 Nasal Cannula 2.0 08/25/17 08:33 60 106/59 08/25/17 06:00 97.1 18 98 I&O- Last 24 Hours up to 6 AM 08/26/17 06:00 Intake Total 0 ml Output Total 0 ml Balance 0 ml Laboratory Data 24H LABS Laboratory Tests 2 08/25/17 06:26: Immature Granulocyte % (Auto) 0.6H, White Blood Count 19.6H, Red Blood Count 4.43, Hemoglobin 13.0, Hematocrit 40.4, Mean Corpuscular Volume 91.2, Mean Corpuscular Hemoglobin 29.3, Mean Corpuscular Hemoglobin Concent 32.2, Red Cell Distribution Width 14.7H, Platelet Count 271, Neutrophils (%) (Auto) 88.8H, Lymphocytes (%) (Auto) 3.4L, Monocytes (%) (Auto) 7.0H, Eosinophils (%) (Auto) 0.1, Basophils (%) (Auto) 0.1, Neutrophils # (Auto) 17.4H, Lymphocytes # (Auto) 0.7L, Monocytes # (Auto) 1.4H, Eosinophils # (Auto) 0.0, Basophils # (Auto) 0.0 , Immature Granulocyte # (Auto) 0.1H, Nucleated Red Blood Cells % (auto) 0.0, Anion Gap 8, Glomerular Filtration Rate 16.5L, Blood Urea Nitrogen 52H, Creatinine 3.04H, Sodium Level 140, Potassium Level 5.2H, Chloride Level 107, Carbon Dioxide Level 25, Calcium Level 9.3 CBC/BMP Laboratory Tests 08/25/17 06:26 Red Blood Count 4.43, Mean Corpuscular Volume 91.2, Mean Corpuscular Hemoglobin 29.3, Mean Corpuscular Hemoglobin Concent 32.2, Red Cell Distribution Width 14.7 H, Neutrophils (%) (Auto) 88.8 H, Lymphocytes (%) (Auto) 3.4 L, Monocytes ( %) (Auto) 7.0 H, Eosinophils (%) (Auto) 0.1, Basophils (%) (Auto) 0.1, Neutrophils # (Auto) 17.4 H, Lymphocytes # (Auto) 0.7 L, Monocytes # (Auto) 1.4 H, Eosinophils # (Auto) 0.0, Basophils # (Auto) 0.0, Calcium Level 9.3 Microbiology Microbiology 08/22/17 Blood Culture - Preliminary, Resulted No Growth after 48 hours. All Specime... 08/22/17 Blood Culture - Preliminary, Resulted No Growth after 48 hours. All Specime... 08/23/17 MRSA Screen - Final, Complete 08/23/17 Respiratory Virus Panel (PCR) ([facility]) - Final, Complete 08/22/17 Influenza Virus Type A Antigen - Final, Complete 08/22/17 Influenza Virus Type B Antigen - Final, Complete IVETT NGUYEN PA-C Aug 25, 2017 10:23
[2017-08-25] MEDS: NS 0.45% 1,000 ML IV SCH (11:38)
[2017-08-25 14:00] VITALS: BP 122/65
[2017-08-25] MEDS: CLOPIDOGREL 75 MG TAB PO SCH (21:59)
[2017-08-25] MEDS: ASPIRIN 81 MG ENTERIC TAB PO SCH (21:59)
[2017-08-25] MEDS: ATORVASTATIN 20 MG TAB PO SCH (21:59)
[2017-08-25 22:00] VITALS: BP 114/72
[2017-08-25] MEDS: ENOXAPARIN 30 MG/0.3 ML SYR (J1650) SC SCH (22:00)
[2017-08-26] MEDS: PIPERACILLIN/TAZOBACTAM SOD 2.25 GM in D5W 50 ML IV SCH ×2 (01:37→06:40)
[2017-08-26] MEDS: NS 0.45% 1,000 ML IV SCH ×2 (01:38→10:28)
[2017-08-26] MEDS: IPRATROPIUM 0.5MG/ALBUTEROL 2.5MG INH SOL UD 3ML (DUONEB)(J7620) NEB SCH ×4 (01:41→20:00)
[2017-08-26 06:31] LABS: BASO % 0.2 % (0.0-1.0); EOS # 0.1 10^3/uL (0.0-0.50); EOS % 0.7 % (0.0-3.0); IMMATURE GRANULOCYTE % 0.6 % (0-0); LYMPH # 0.8 10^3/uL (1.5-4.5); LYMPH % 6.4 % (24.0-44.0); MEAN CORPUSCULAR HEMOGLOBIN 29.2 pg (27.0-33.0); MEAN CORPUSCULAR HGB CONC 31.9 g/dl (32.0-36.5); MEAN CORPUSCULAR VOLUME 91.3 fl (80.0-96.0); MONO # 1.5 10^3/uL (0.0-0.8); MONO % 11.3 % (0.0-5.0); NEUTROPHILS # 10.4 10^3/uL (1.8-7.7); NEUTROPHILS % 80.8 % (36.0-66.0); PLATELET COUNT, AUTOMATED 248 10^3/uL (150-450); RED CELL DISTRIBUTION WIDTH 14.8 % (11.5-14.5); WHITE BLOOD COUNT 12.8 10^3/uL (4.0-10.0)
[2017-08-26 06:47] LABS: CALCIUM LEVEL 8.4 MG/DL (8.8-10.2); CREATININE FOR GFR 2.66 MG/DL (0.55-1.02); GLOMERULAR FILTRATION RATE 19.2 (>45); POTASSIUM SERUM 4.2 MEQ/L (3.5-5.1)
[2017-08-26] MEDS: HumaLOG INSULIN (NovoLOG) PER UNIT SC SCH ×4 (07:30→21:00)
[2017-08-26] MEDS: SOLIFENACIN 5 MG TAB PO SCH (10:26)
[2017-08-26] MEDS: FLUoxetine 20 MG CAP PO SCH ×2 (10:27→22:02)
[2017-08-26] MEDS: METOPROLOL TART 25 MG TABLET PO SCH ×2 (10:27→21:00)
[2017-08-26] MEDS: PANTOPRAZOLE 40MG TAB (PROTONIX) PO SCH ×2 (10:27→22:01)
[2017-08-26] MEDS: predniSONE 20 MG TAB PO SCH (10:27)
[2017-08-26] MEDS: CALCITRIOL 0.25 MCG CAP (S0169) PO SCH (10:27)
[2017-08-26] MEDS: SENOKOT S TAB PO SCH ×2 (10:27→21:00)
--- NOTE | 2017-08-26 11:48 | IPNPDOC ---
Subjective Date Seen The patient was seen on 08/26/17. Subjective Chief Complaint/HPI The patient is a 62-year-old female admitted with a reason for visit of Non Small Cell Cancer Of Right Lung,Pneumonia. Events since last encounter Still having diarrhea today. GI panel negative. No abd pain or fever Still with desats with ambulation, but breathing overall feels better per patient Constitutional: Denies: Chills, Fever Pulmonary: Reports: Dyspnea (improved), Denies: Cough Cardiovascular: Denies: Chest Pain, Palpitations, Orthopnea Gastrointestinal: Reports: Diarrhea, Denies: Nausea, Vomiting, Abdominal Pain, Constipation Objective Physical Examination General Exam: Positive: Alert, No Acute Distress Chest Exam: Positive: Clear to auscultation, Negative: Rales, Rhonchi, Wheezing Heart Exam: Positive: Rate Normal, Regular Rhythm Abdomen Exam: Positive: Normal bowel sounds, Soft, Negative: Tenderness Extremity Exam: Negative: Edema Assessment /Plan Problems (1) Diarrhea Status: Acute Problem Text: Diarrhea persists. GI panel negative check C.Diff. If negative, will give Imodium since patient has to use this periodically at home (2) Pneumonia Status: Acute Response to Treatment: Improving Problem Text: Suspect radaition pneumonitis WBC trending down - cahnge to po Augmentin. continue prednisone Still desats with ambulation on oxygen Encourage IS (3) Chronic kidney disease Status: Chronic Response to Treatment: Worse Problem Text: 08/26 - REnal function back to baseline. D/C IVF - monitor trend if diarrhea persists. (4) Non-small cell cancer of right lung Status: Chronic Problem Text: Per Oncology - she missed her Chemo appt yesterday (5) DM2 (diabetes mellitus, type 2) Status: Chronic Response to Treatment: Stable Problem Text: continue SSI (6) CAD (coronary artery disease) Status: Chronic Response to Treatment: Stable Plan/VTE VTE Prophylaxis Ordered?: Yes (Lovenox) VS, I&O, 24H, Fishbone Vital Signs/I&O Vital Signs Date Time Temp Pulse Resp B/P (MAP) Pulse Ox O2 Delivery O2 Flow Rate FiO2 08/26/17 10:27 87 114/72 08/25/17 22:15 16 97 Nasal Cannula 2.0 08/25/17 22:00 98.0 Laboratory Data 24H LABS Laboratory Tests 2 08/26/17 06:01: Immature Granulocyte % (Auto) 0.6H, White Blood Count 12.8H, Red Blood Count 4.15, Hemoglobin 12.1, Hematocrit 37.9, Mean Corpuscular Volume 91.3, Mean Corpuscular Hemoglobin 29.2, Mean Corpuscular Hemoglobin Concent 31.9L, Red Cell Distribution Width 14.8H, Platelet Count 248, Neutrophils (%) (Auto) 80.8H , Lymphocytes (%) (Auto) 6.4L, Monocytes (%) (Auto) 11.3H, Eosinophils (%) (Auto ) 0.7, Basophils (%) (Auto) 0.2, Neutrophils # (Auto) 10.4H, Lymphocytes # (Auto ) 0.8L, Monocytes # (Auto) 1.5H, Eosinophils # (Auto) 0.1, Basophils # (Auto) 0.0, Immature Granulocyte # (Auto) 0.1H, Nucleated Red Blood Cells % (auto) 0.0 , Anion Gap 11, Glomerular Filtration Rate 19.2L, Blood Urea Nitrogen 53H, Creatinine 2.66H, Sodium Level 142, Potassium Level 4.2, Chloride Level 110H, Carbon Dioxide Level 21, Calcium Level 8.4L CBC/BMP Laboratory Tests 08/26/17 06:01 Red Blood Count 4.15, Mean Corpuscular Volume 91.3, Mean Corpuscular Hemoglobin 29.2, Mean Corpuscular Hemoglobin Concent 31.9 L, Red Cell Distribution Width 14.8 H, Neutrophils (%) (Auto) 80.8 H, Lymphocytes (%) (Auto) 6.4 L, Monocytes ( %) (Auto) 11.3 H, Eosinophils (%) (Auto) 0.7, Basophils (%) (Auto) 0.2, Neutrophils # (Auto) 10.4 H, Lymphocytes # (Auto) 0.8 L, Monocytes # (Auto) 1.5 H, Eosinophils # (Auto) 0.1, Basophils # (Auto) 0.0, Calcium Level 8.4 L Microbiology Microbiology 08/22/17 Blood Culture - Preliminary, Resulted No Growth after 72 hours. All specime... 08/22/17 Blood Culture - Preliminary, Resulted No Growth after 72 hours. All specime... 08/25/17 Gastrointestinal Tract Panel (PCR) - Final, Complete 08/23/17 MRSA Screen - Final, Complete 08/23/17 Respiratory Virus Panel (PCR) ([facility]RET) - Final, Complete 08/22/17 Influenza Virus Type A Antigen - Final, Complete 08/22/17 Influenza Virus Type B Antigen - Final, Complete IVETT NGUYEN PA-C Aug 26, 2017 11:48
[2017-08-26 14:00] VITALS: BP 156/80
[2017-08-26] MEDS: AUGMENTIN 500 MG TAB PO SCH (22:01)
[2017-08-26] MEDS: ASPIRIN 81 MG ENTERIC TAB PO SCH (22:02)
[2017-08-26] MEDS: CLOPIDOGREL 75 MG TAB PO SCH (22:02)
[2017-08-26] MEDS: ATORVASTATIN 20 MG TAB PO SCH (22:02)
[2017-08-26] MEDS: ENOXAPARIN 30 MG/0.3 ML SYR (J1650) SC SCH (22:02)
[2017-08-27] MEDS: IPRATROPIUM 0.5MG/ALBUTEROL 2.5MG INH SOL UD 3ML (DUONEB)(J7620) NEB SCH ×4 (01:35→20:00)
[2017-08-27 05:54] LABS: BASO % 0.2 % (0.0-1.0); EOS # 0.1 10^3/uL (0.0-0.50); EOS % 0.5 % (0.0-3.0); IMMATURE GRANULOCYTE % 0.8 % (0-0); LYMPH # 0.7 10^3/uL (1.5-4.5); LYMPH % 5.3 % (24.0-44.0); MEAN CORPUSCULAR HEMOGLOBIN 29.6 pg (27.0-33.0); MEAN CORPUSCULAR HGB CONC 32.4 g/dl (32.0-36.5); MEAN CORPUSCULAR VOLUME 91.3 fl (80.0-96.0); MONO # 1.4 10^3/uL (0.0-0.8); MONO % 10.7 % (0.0-5.0); NEUTROPHILS # 10.5 10^3/uL (1.8-7.7); NEUTROPHILS % 82.5 % (36.0-66.0); PLATELET COUNT, AUTOMATED 243 10^3/uL (150-450); RED CELL DISTRIBUTION WIDTH 14.6 % (11.5-14.5); WHITE BLOOD COUNT 12.8 10^3/uL (4.0-10.0)
[2017-08-27 06:00] VITALS: BP 162/78
[2017-08-27 06:23] LABS: CALCIUM LEVEL 8.5 MG/DL (8.8-10.2); CREATININE FOR GFR 2.48 MG/DL (0.55-1.02); GLOMERULAR FILTRATION RATE 20.8 (>45); POTASSIUM SERUM 4.9 MEQ/L (3.5-5.1)
[2017-08-27] MEDS: HumaLOG INSULIN (NovoLOG) PER UNIT SC SCH ×4 (08:46→20:31)
[2017-08-27] MEDS: SOLIFENACIN 5 MG TAB PO SCH (08:58)
[2017-08-27] MEDS: CALCITRIOL 0.25 MCG CAP (S0169) PO SCH (08:58)
[2017-08-27] MEDS: AUGMENTIN 500 MG TAB PO SCH ×2 (08:58→20:38)
[2017-08-27] MEDS: PANTOPRAZOLE 40MG TAB (PROTONIX) PO SCH ×2 (08:59→20:39)
[2017-08-27] MEDS: SENOKOT S TAB PO SCH ×2 (08:59→20:38)
[2017-08-27] MEDS: METOPROLOL TART 25 MG TABLET PO SCH ×2 (08:59→20:40)
[2017-08-27] MEDS: predniSONE 20 MG TAB PO SCH (08:59)
[2017-08-27] MEDS: FLUoxetine 20 MG CAP PO SCH ×2 (08:59→20:38)
[2017-08-27 14:00] VITALS: BP 120/70
--- NOTE | 2017-08-27 14:30 | IPN ---
DATE: 08/27/2017 Destiny was having quite a bit of diarrhea. I think it is antibiotic associated. Her gastrointestinal (GI) panel was negative. Apparently, diarrhea kept her awake last night. Shortness of breath is better. PHYSICAL EXAMINATION: Blood pressure 162/78, systolic pressure has been between 112 and 168, pulse 68, 96% oxygen saturation on 2 liters. General Appearance: She is alert, conversant, looks stable. No jugular venous distention (JVD). Lungs: A few wheezes. Heart: Regular rhythm. Abdomen: Soft, nontender. No peripheral edema. LABORATORY: White count is 12.8, hemoglobin 12.3, creatinine is down to 2.4. IMPRESSION: 1. Pneumonitis, on oral Augmentin and prednisone, as well as supplementation oxygen. I am not sure how much of this is radiation pneumonitis versus bacterial. 2. Diarrhea. I am going to get Clostridium difficile (C diff) by PCR as I have had some GI panels come back negative and when tested specifically for Clostridium difficile they were positive, probably from her antibiotics. Will wait to get results of Clostridium difficile back before we make any changes. 3. Non-small cell lung cancer. Getting chemotherapy through oncology. 4. Chronic kidney disease. Off intravenous fluid, renal function is improving.
[2017-08-27] MEDS: ASPIRIN 81 MG ENTERIC TAB PO SCH (20:39)
[2017-08-27] MEDS: ENOXAPARIN 30 MG/0.3 ML SYR (J1650) SC SCH (20:39)
[2017-08-27] MEDS: CLOPIDOGREL 75 MG TAB PO SCH (20:39)
[2017-08-27] MEDS: ATORVASTATIN 20 MG TAB PO SCH (20:39)
[2017-08-27 22:00] VITALS: BP 122/60
[2017-08-28] MEDS: IPRATROPIUM 0.5MG/ALBUTEROL 2.5MG INH SOL UD 3ML (DUONEB)(J7620) NEB SCH ×4 (01:50→20:00)
[2017-08-28 06:00] VITALS: BP 133/65
[2017-08-28 06:24] LABS: MEAN CORPUSCULAR HEMOGLOBIN 28.9 pg (27.0-33.0); MEAN CORPUSCULAR VOLUME 90.4 fl (80.0-96.0); PLATELET COUNT, AUTOMATED 248 10^3/uL (150-450); RED CELL DISTRIBUTION WIDTH 14.6 % (11.5-14.5); WHITE BLOOD COUNT 12.6 10^3/uL (4.0-10.0)
[2017-08-28 06:43] LABS: CALCIUM LEVEL 8.5 MG/DL (8.8-10.2); CREATININE FOR GFR 2.09 MG/DL (0.55-1.02); GLOMERULAR FILTRATION RATE 25.4 (>45); POTASSIUM SERUM 4.1 MEQ/L (3.5-5.1)
[2017-08-28] MEDS: HumaLOG INSULIN (NovoLOG) PER UNIT SC SCH ×4 (07:30→21:05)
[2017-08-28] MEDS: predniSONE 20 MG TAB PO SCH (09:00)
[2017-08-28] MEDS: SOLIFENACIN 5 MG TAB PO SCH (09:00)
[2017-08-28] MEDS: SENOKOT S TAB PO SCH ×2 (09:00→21:25)
[2017-08-28] MEDS: AUGMENTIN 500 MG TAB PO SCH (09:00)
[2017-08-28] MEDS: PANTOPRAZOLE 40MG TAB (PROTONIX) PO SCH ×2 (09:00→21:24)
[2017-08-28] MEDS: METOPROLOL TART 25 MG TABLET PO SCH ×2 (09:00→21:24)
[2017-08-28] MEDS: FLUoxetine 20 MG CAP PO SCH ×2 (09:00→21:24)
[2017-08-28] MEDS: CALCITRIOL 0.25 MCG CAP (S0169) PO SCH (09:00)
[2017-08-28] MEDS: LACTOBACILLUS ACIDOPHILUS CAP (BACID) PO SCH ×2 (12:48→16:59)
[2017-08-28] MEDS: LOPERAMIDE 2 MG CAP PO PRN (12:48)
[2017-08-28 14:00] VITALS: BP 141/71
[2017-08-28] MEDS: ASPIRIN 81 MG ENTERIC TAB PO SCH (21:24)
[2017-08-28] MEDS: CLOPIDOGREL 75 MG TAB PO SCH (21:24)
[2017-08-28] MEDS: ATORVASTATIN 20 MG TAB PO SCH (21:24)
[2017-08-28] MEDS: ENOXAPARIN 30 MG/0.3 ML SYR (J1650) SC SCH (21:25)
[2017-08-28 22:00] VITALS: BP 136/68
[2017-08-29] MEDS: IPRATROPIUM 0.5MG/ALBUTEROL 2.5MG INH SOL UD 3ML (DUONEB)(J7620) NEB SCH ×4 (01:52→19:39)
[2017-08-29 05:26] VITALS: BP 148/68
[2017-08-29 06:03] LABS: MEAN CORPUSCULAR HEMOGLOBIN 29.2 pg (27.0-33.0); MEAN CORPUSCULAR HGB CONC 32.4 g/dl (32.0-36.5); PLATELET COUNT, AUTOMATED 247 10^3/uL (150-450); RED CELL DISTRIBUTION WIDTH 14.2 % (11.5-14.5); WHITE BLOOD COUNT 13.9 10^3/uL (4.0-10.0)
--- NOTE | 2017-08-29 06:14 | IPN ---
DATE: 08/28/2017 Destiny is having intractable diarrhea. I rechecked her Clostridium difficile (C diff) by PCR, and it was negative. She was on Zosyn, then switched to Augmentin. I think both of these might be just causing some antibiotic-associated diarrhea. At this point, we do not have any strong evidence her pneumonia is bacterial. She had leukocytosis on admission that came down with antibiotic therapy, but her respiratory panel was negative and nothing came out of any of her cultures. She feels less short of breath. If it were not for the diarrhea, she would feel well enough to be home. PHYSICAL EXAMINATION: Afebrile. Vital signs stable. Blood pressure 133/65. General Appearance: She is alert, conversant. Lungs: Fibrotic rales both bases. Heart: Regular rhythm. Abdomen: Soft, nontender, nondistended. No masses. No peripheral edema. LABORATORY: Electrolytes unremarkable. Creatinine is down to 2.0. White count is down to 12.6, hemoglobin stable. IMPRESSION: 1. Pneumonitis. Question bacterial versus radiation induced. I am going to stop her Augmentin, follow her white count and see how she feels tomorrow. She has a negative Clostridium difficile, so I think she could safely use some Imodium, which I will order for her. 2. Non-small cell lung cancer. Getting chemotherapy, she also received radiation therapy. 3. Chronic kidney disease. Renal function continues to improve. Her intravenous (IV) fluids have been discontinued. 4. Diarrhea. Order probiotic and Imodium. Two tests have been negative for Clostridium difficile.
[2017-08-29 06:25] LABS: CALCIUM LEVEL 8.6 MG/DL (8.8-10.2); CREATININE FOR GFR 2.17 MG/DL (0.55-1.02); GLOMERULAR FILTRATION RATE 24.3 (>45); POTASSIUM SERUM 4.3 MEQ/L (3.5-5.1)
[2017-08-29] MEDS: HumaLOG INSULIN (NovoLOG) PER UNIT SC SCH ×4 (08:30→21:25)
[2017-08-29] MEDS: SENOKOT S TAB PO SCH ×2 (08:44→21:30)
[2017-08-29] MEDS: METOPROLOL TART 25 MG TABLET PO SCH ×2 (10:00→21:24)
[2017-08-29] MEDS: predniSONE 20 MG TAB PO SCH (10:02)
[2017-08-29] MEDS: FLUoxetine 20 MG CAP PO SCH ×2 (10:03→21:29)
[2017-08-29] MEDS: PANTOPRAZOLE 40MG TAB (PROTONIX) PO SCH ×2 (10:03→21:29)
[2017-08-29] MEDS: LACTOBACILLUS ACIDOPHILUS CAP (BACID) PO SCH ×3 (10:03→18:00)
[2017-08-29] MEDS: CALCITRIOL 0.25 MCG CAP (S0169) PO SCH (10:03)
[2017-08-29] MEDS: SOLIFENACIN 5 MG TAB PO SCH (10:05)
--- NOTE | 2017-08-29 11:08 | IPNPDOC ---
Subjective Date Seen The patient was seen on 08/29/17. Subjective Chief Complaint/HPI The patient is a 62-year-old female admitted with a reason for visit of Non Small Cell Cancer Of Right Lung,Pneumonia. Events since last encounter Continues with weakness and hypoxia on ambulation. Noting significant fatigue with exertion also Constitutional: Denies: Chills, Fever, Night Sweats Skin: Denies: Rash, Lesions, Breakdown Pulmonary: Denies: Dyspnea, Cough Cardiovascular: Denies: Chest Pain, Palpitations, Orthopnea, Paroxysmal Noc. Dyspnea, Lt Headedness Gastrointestinal: Denies: Nausea, Vomiting, Abdominal Pain, Diarrhea, Constipation Objective Physical Examination General Exam: Positive: Alert, No Acute Distress Chest Exam: Positive: Clear to auscultation, Negative: Rales, Rhonchi, Wheezing Heart Exam: Positive: Rate Normal, Regular Rhythm Abdomen Exam: Positive: Normal bowel sounds, Soft, Negative: Tenderness Extremity Exam: Negative: Edema Assessment /Plan Problems (1) Diarrhea Status: Acute Problem Text: -GI panel negative. Imodium prn. Diarrhea persists. GI panel negative check C.Diff. If negative, will give Imodium since patient has to use this periodically at home (2) Pneumonia Status: Acute Response to Treatment: Improving Problem Text: 08/29/17: will repeat CXR today. Remains hypoxic with exertion. may need at home oxygen Suspect radiation pneumonitis WBC trending down - cahnge to po Augmentin. continue prednisone Still desats with ambulation on oxygen Encourage IS (3) Chronic kidney disease Status: Chronic Response to Treatment: Worse Problem Text: 08/26 - REnal function back to baseline. D/C IVF - monitor trend if diarrhea persists. (4) Non-small cell cancer of right lung Status: Chronic Problem Text: Per Oncology - she missed her Chemo appt yesterday (5) DM2 (diabetes mellitus, type 2) Status: Chronic Response to Treatment: Stable Problem Text: continue SSI (6) CAD (coronary artery disease) Status: Chronic Response to Treatment: Stable Plan/VTE VTE Prophylaxis Ordered?: Yes (Lovenox) VS, I&O, 24H, Fishbone Vital Signs/I&O Vital Signs Date Time Temp Pulse Resp B/P (MAP) Pulse Ox O2 Delivery O2 Flow Rate FiO2 08/29/17 10:00 60 148/68 08/29/17 06:36 95 Nasal Cannula 1.0 08/29/17 05:26 97.6 17 Laboratory Data 24H LABS Laboratory Tests 2 08/28/17 20:40: Bedside Glucose (Misc Panel) 191H 08/29/17 05:29: Nucleated Red Blood Cells % (auto) 0.0, Anion Gap 8, Glomerular Filtration Rate 24.3L, Blood Urea Nitrogen 46H, Creatinine 2.17H, Sodium Level 141, Potassium Level 4.3, Chloride Level 111H, Carbon Dioxide Level 22, Calcium Level 8.6L CBC/BMP Laboratory Tests 08/29/17 05:29 Red Blood Count 4.18, Mean Corpuscular Volume 90.0, Mean Corpuscular Hemoglobin 29.2, Mean Corpuscular Hemoglobin Concent 32.4, Red Cell Distribution Width 14.2 , Calcium Level 8.6 L Microbiology Microbiology 08/22/17 Blood Culture - Final, Complete NO GROWTH AFTER 5 DAYS 08/22/17 Blood Culture - Final, Complete NO GROWTH AFTER 5 DAYS 08/28/17 Clostridium difficile (PCR) - Final, Complete 08/25/17 Gastrointestinal Tract Panel (PCR) - Final, Complete 08/23/17 MRSA Screen - Final, Complete 08/23/17 Respiratory Virus Panel (PCR) ([facility]RET) - Final, Complete 08/22/17 Influenza Virus Type A Antigen - Final, Complete 08/22/17 Influenza Virus Type B Antigen - Final, Complete Britney Villegas Aug 29, 2017 11:08
[2017-08-29] MEDS: LOPERAMIDE 2 MG CAP PO PRN (12:38)
--- NOTE | 2017-08-29 12:56 | REP ---
PA and lateral chest: Comparisons are the portable chest dated 08/22/2017, PA and lateral chest dated 08/17/[address] dated 08/22/2017. The patient has a known mass medially in the right lower lobe. In addition there are bilateral paramediastinal postradiation changes and postradiation changes in the right middle lobe and right lower lobe. These postradiation changes are changed from the prior studies. There are no pleural effusions. Cardiac size is normal. The jaydon, mediastinum, bony thorax are unremarkable. Impression: There are no significant interval changes. There are postradiation changes. In addition, the patient's known mass medially in the lower lobe of the right lung. Signed by Dejan Pichardo MD 08/29/2017 12:48 P
[2017-08-29 14:00] VITALS: BP 145/75
[2017-08-29] MEDS: ATORVASTATIN 20 MG TAB PO SCH (21:29)
[2017-08-29] MEDS: ASPIRIN 81 MG ENTERIC TAB PO SCH (21:29)
[2017-08-29] MEDS: CLOPIDOGREL 75 MG TAB PO SCH (21:29)
[2017-08-29] MEDS: ENOXAPARIN 30 MG/0.3 ML SYR (J1650) SC SCH (21:30)
[2017-08-29 21:36] VITALS: BP 119/60
[2017-08-30] MEDS: IPRATROPIUM 0.5MG/ALBUTEROL 2.5MG INH SOL UD 3ML (DUONEB)(J7620) NEB SCH ×4 (02:00→20:00)
[2017-08-30 06:00] VITALS: BP 133/68
[2017-08-30] MEDS: HumaLOG INSULIN (NovoLOG) PER UNIT SC SCH ×4 (07:30→22:13)
[2017-08-30 07:44] LABS: MEAN CORPUSCULAR HEMOGLOBIN 28.8 pg (27.0-33.0); MEAN CORPUSCULAR HGB CONC 32.6 g/dl (32.0-36.5); MEAN CORPUSCULAR VOLUME 88.2 fl (80.0-96.0); PLATELET COUNT, AUTOMATED 253 10^3/uL (150-450); RED CELL DISTRIBUTION WIDTH 14.1 % (11.5-14.5)
[2017-08-30 08:06] LABS: CALCIUM LEVEL 8.6 MG/DL (8.8-10.2); CREATININE FOR GFR 2.11 MG/DL (0.55-1.02); GLOMERULAR FILTRATION RATE 25.1 (>45); POTASSIUM SERUM 4.5 MEQ/L (3.5-5.1)
[2017-08-30] MEDS: METOPROLOL TART 25 MG TABLET PO SCH ×2 (08:54→22:15)
[2017-08-30] MEDS: SENOKOT S TAB PO SCH ×2 (08:54→22:16)
[2017-08-30] MEDS: CALCITRIOL 0.25 MCG CAP (S0169) PO SCH (09:53)
[2017-08-30] MEDS: SOLIFENACIN 5 MG TAB PO SCH (09:53)
[2017-08-30] MEDS: LACTOBACILLUS ACIDOPHILUS CAP (BACID) PO SCH ×3 (09:53→18:55)
[2017-08-30] MEDS: PANTOPRAZOLE 40MG TAB (PROTONIX) PO SCH ×2 (09:53→22:13)
[2017-08-30] MEDS: predniSONE 20 MG TAB PO SCH (09:53)
[2017-08-30] MEDS: FLUoxetine 20 MG CAP PO SCH ×2 (09:53→22:13)
--- NOTE | 2017-08-30 10:08 | IPNPDOC ---
Subjective Date Seen The patient was seen on 08/30/17. Subjective Chief Complaint/HPI The patient is a 62-year-old female admitted with a reason for visit of Non Small Cell Cancer Of Right Lung,Pneumonia. Events since last encounter Continues with hypoxia on exertion, including weakness and significant fatigue with exertion. Constitutional: Reports: Weakness, Fatigue, Lethargy ENT: Denies: Head Aches, Ear Pain, Dysphagia Skin: Denies: Rash, Lesions, Breakdown Pulmonary: Reports: Dyspnea, Cough, Pleuritic Chest Pain Cardiovascular: Denies: Chest Pain, Palpitations, Orthopnea, Paroxysmal Noc. Dyspnea, Lt Headedness Gastrointestinal: Denies: Nausea, Vomiting, Abdominal Pain, Diarrhea, Constipation Genitourinary: Denies: Dysuria, Frequency, Incontinence, Retention Psych: Reports: Mood Normal, Denies: Depression, Memory Issues Objective Physical Examination General Exam: Positive: Alert, No Acute Distress Chest Exam: Positive: Clear to auscultation, Negative: Rales, Rhonchi, Wheezing Heart Exam: Positive: Rate Normal, Regular Rhythm Abdomen Exam: Positive: Normal bowel sounds, Soft, Negative: Tenderness Extremity Exam: Negative: Edema Assessment /Plan Problems (1) Diarrhea Status: Acute Problem Text: -GI panel negative. Imodium prn. Diarrhea persists. GI panel negative check C.Diff. If negative, will give Imodium since patient has to use this periodically at home (2) Pneumonia Status: Acute Response to Treatment: Improving Problem Text: 08/30/17: CXR unchanged. Hypoxic with exertion with severe fatigue. Continue with oxygen on exertion. 08/29/17: will repeat CXR today. Remains hypoxic with exertion. may need at home oxygen Suspect radiation pneumonitis WBC trending down - cahnge to po Augmentin. continue prednisone Still desats with ambulation on oxygen Encourage IS (3) Chronic kidney disease Status: Chronic Response to Treatment: Worse Problem Text: 08/26 - REnal function back to baseline. D/C IVF - monitor trend if diarrhea persists. (4) Non-small cell cancer of right lung Status: Chronic Problem Text: Per Oncology - she missed her Chemo appt yesterday (5) DM2 (diabetes mellitus, type 2) Status: Chronic Response to Treatment: Stable Problem Text: continue SSI (6) CAD (coronary artery disease) Status: Chronic Response to Treatment: Stable Plan/VTE VTE Prophylaxis Ordered?: Yes (Lovenox) VS, I&O, 24H, Fishbone Vital Signs/I&O Vital Signs Date Time Temp Pulse Resp B/P (MAP) Pulse Ox O2 Delivery O2 Flow Rate FiO2 08/30/17 08:54 64 133/68 08/30/17 08:00 Room Air 08/30/17 06:00 98.3 18 94 98.3 08/29/17 08:00 1.0 Laboratory Data 24H LABS Laboratory Tests 2 08/29/17 13:19: Bedside Glucose (Misc Panel) 157H 08/30/17 07:17: Nucleated Red Blood Cells % (auto) 0.0, Anion Gap 9, Glomerular Filtration Rate 25.1L, Blood Urea Nitrogen 42H, Creatinine 2.11H, Sodium Level 140, Potassium Level 4.5, Chloride Level 107, Carbon Dioxide Level 24, Calcium Level 8.6L CBC/BMP Laboratory Tests 08/30/17 07:17 Red Blood Count 4.41, Mean Corpuscular Volume 88.2, Mean Corpuscular Hemoglobin 28.8, Mean Corpuscular Hemoglobin Concent 32.6, Red Cell Distribution Width 14.1 , Calcium Level 8.6 L Microbiology Microbiology 08/22/17 Blood Culture - Final, Complete NO GROWTH AFTER 5 DAYS 08/22/17 Blood Culture - Final, Complete NO GROWTH AFTER 5 DAYS 08/28/17 Clostridium difficile (PCR) - Final, Complete 08/25/17 Gastrointestinal Tract Panel (PCR) - Final, Complete 08/23/17 MRSA Screen - Final, Complete 08/23/17 Respiratory Virus Panel (PCR) ([facility]RET) - Final, Complete 08/22/17 Influenza Virus Type A Antigen - Final, Complete 08/22/17 Influenza Virus Type B Antigen - Final, Complete Britney Villegas [employer] Aug 30, 2017 10:08
[2017-08-30 14:00] VITALS: BP 131/67
[2017-08-30] MEDS ORDERED: FLUCONAZOLE 50MG TABLET PO ONE (14:15)
[2017-08-30 22:00] VITALS: BP 114/65
[2017-08-30] MEDS: ASPIRIN 81 MG ENTERIC TAB PO SCH (22:12)
[2017-08-30] MEDS: ATORVASTATIN 20 MG TAB PO SCH (22:12)
[2017-08-30] MEDS: CLOPIDOGREL 75 MG TAB PO SCH (22:13)
[2017-08-30] MEDS: ENOXAPARIN 30 MG/0.3 ML SYR (J1650) SC SCH (22:14)
[2017-08-31] MEDS: IPRATROPIUM 0.5MG/ALBUTEROL 2.5MG INH SOL UD 3ML (DUONEB)(J7620) NEB SCH ×4 (01:42→19:58)
[2017-08-31 06:00] VITALS: BP 128/60
[2017-08-31 06:33] LABS: MEAN CORPUSCULAR HEMOGLOBIN 29.3 pg (27.0-33.0); MEAN CORPUSCULAR VOLUME 88.7 fl (80.0-96.0); PLATELET COUNT, AUTOMATED 274 10^3/uL (150-450); RED CELL DISTRIBUTION WIDTH 14.1 % (11.5-14.5); WHITE BLOOD COUNT 14.7 10^3/uL (4.0-10.0)
[2017-08-31 06:50] LABS: CALCIUM LEVEL 8.8 MG/DL (8.8-10.2); CREATININE FOR GFR 2.31 MG/DL (0.55-1.02); GLOMERULAR FILTRATION RATE 22.6 (>45); POTASSIUM SERUM 4.9 MEQ/L (3.5-5.1)
[2017-08-31] MEDS: HumaLOG INSULIN (NovoLOG) PER UNIT SC SCH ×4 (07:30→21:35)
[2017-08-31] MEDS: predniSONE 20 MG TAB PO SCH (08:54)
[2017-08-31] MEDS: PANTOPRAZOLE 40MG TAB (PROTONIX) PO SCH ×2 (08:54→21:36)
[2017-08-31] MEDS: SENOKOT S TAB PO SCH ×3 (08:54→21:36)
[2017-08-31] MEDS: CALCITRIOL 0.25 MCG CAP (S0169) PO SCH (08:54)
[2017-08-31] MEDS: FLUoxetine 20 MG CAP PO SCH ×2 (08:54→21:36)
[2017-08-31] MEDS: LACTOBACILLUS ACIDOPHILUS CAP (BACID) PO SCH ×3 (08:54→18:00)
[2017-08-31] MEDS: METOPROLOL TART 25 MG TABLET PO SCH ×2 (08:55→21:37)
[2017-08-31] MEDS: SOLIFENACIN 5 MG TAB PO SCH (08:55)
[2017-08-31 10:42] VITALS: BP 128/68
--- NOTE | 2017-08-31 11:56 | IPNPDOC ---
Subjective Date Seen The patient was seen on 08/31/17. Subjective Chief Complaint/HPI The patient is a 62-year-old female admitted with a reason for visit of Non Small Cell Cancer Of Right Lung,Pneumonia. Events since last encounter Continues with significant fatigue and hypoxia with exertion. General: Reports: Fatigue Constitutional: Reports: Lethargy, Denies: Chills, Fever, Night Sweats Pulmonary: Reports: Dyspnea, Cough Cardiovascular: Denies: Chest Pain, Palpitations, Orthopnea, Paroxysmal Noc. Dyspnea, Lt Headedness Gastrointestinal: Denies: Nausea, Vomiting, Abdominal Pain, Diarrhea, Constipation Genitourinary: Denies: Dysuria, Frequency, Incontinence, Retention Objective Physical Examination General Exam: Positive: Alert, No Acute Distress Chest Exam: Positive: Clear to auscultation, Negative: Rales, Rhonchi, Wheezing Heart Exam: Positive: Rate Normal, Regular Rhythm Abdomen Exam: Positive: Normal bowel sounds, Soft, Negative: Tenderness Extremity Exam: Negative: Edema Assessment /Plan Problems (1) Diarrhea Status: Acute Problem Text: -GI panel negative. Imodium prn. Diarrhea persists. GI panel negative check C.Diff. If negative, will give Imodium since patient has to use this periodically at home (2) Pneumonia Status: Acute Response to Treatment: Improving Problem Text: 08/31/17: trial higher dose steroid for pneumonitis. 08/30/17: CXR unchanged. Hypoxic with exertion with severe fatigue. Continue with oxygen on exertion. 08/29/17: will repeat CXR today. Remains hypoxic with exertion. may need at home oxygen Suspect radiation pneumonitis WBC trending down - cahnge to po Augmentin. continue prednisone Still desats with ambulation on oxygen Encourage IS (3) Chronic kidney disease Status: Chronic Response to Treatment: Worse Problem Text: 08/26 - REnal function back to baseline. D/C IVF - monitor trend if diarrhea persists. (4) Non-small cell cancer of right lung Status: Chronic Problem Text: Per Oncology - she missed her Chemo appt yesterday (5) DM2 (diabetes mellitus, type 2) Status: Chronic Response to Treatment: Stable Problem Text: continue SSI (6) CAD (coronary artery disease) Status: Chronic Response to Treatment: Stable Plan/VTE VTE Prophylaxis Ordered?: Yes (Lovenox) VS, I&O, 24H, Fishbone Vital Signs/I&O Vital Signs Date Time Temp Pulse Resp B/P (MAP) Pulse Ox O2 Delivery O2 Flow Rate FiO2 08/31/17 10:42 97.9 62 18 128/68 (88) 96 Room Air 08/30/17 14:00 1.0 I&O- Last 24 Hours up to 6 AM 09/01/17 06:00 Intake Total 240 ml Output Total 600 ml Balance -360 ml Laboratory Data 24H LABS Laboratory Tests 2 08/30/17 17:11: Bedside Glucose (Misc Panel) 226H 08/30/17 20:31: Bedside Glucose (Misc Panel) 299H 08/31/17 05:34: Nucleated Red Blood Cells % (auto) 0.0, Anion Gap 3L, Glomerular Filtration Rate 22.6L, Blood Urea Nitrogen 49H, Creatinine 2.31H, Sodium Level 137, Potassium Level 4.9, Chloride Level 106, Carbon Dioxide Level 28, Calcium Level 8.8 CBC/BMP Laboratory Tests 08/31/17 05:34 Red Blood Count 4.17, Mean Corpuscular Volume 88.7, Mean Corpuscular Hemoglobin 29.3, Mean Corpuscular Hemoglobin Concent 33.0, Red Cell Distribution Width 14.1 , Calcium Level 8.8 Microbiology Microbiology 08/22/17 Blood Culture - Final, Complete NO GROWTH AFTER 5 DAYS 08/22/17 Blood Culture - Final, Complete NO GROWTH AFTER 5 DAYS 08/28/17 Clostridium difficile (PCR) - Final, Complete 08/25/17 Gastrointestinal Tract Panel (PCR) - Final, Complete 08/23/17 MRSA Screen - Final, Complete 08/23/17 Respiratory Virus Panel (PCR) (BRET) - Final, Complete 08/22/17 Influenza Virus Type A Antigen - Final, Complete 08/22/17 Influenza Virus Type B Antigen - Final, Complete Britney Villegas [employer] Aug 31, 2017 11:56
[2017-08-31] MEDS: methylPREDNISolone INJ 125 MG/2 ML VIAL (J2930) IV SCH ×2 (12:59→21:35)
[2017-08-31 14:00] VITALS: BP 140/68
[2017-08-31] MEDS: ASPIRIN 81 MG ENTERIC TAB PO SCH (21:36)
[2017-08-31] MEDS: ENOXAPARIN 30 MG/0.3 ML SYR (J1650) SC SCH (21:36)
[2017-08-31] MEDS: ATORVASTATIN 20 MG TAB PO SCH (21:36)
[2017-08-31] MEDS: CLOPIDOGREL 75 MG TAB PO SCH (21:36)
[2017-08-31 22:00] VITALS: BP 137/67
[2017-09-01] MEDS: IPRATROPIUM 0.5MG/ALBUTEROL 2.5MG INH SOL UD 3ML (DUONEB)(J7620) NEB SCH ×4 (02:00→19:47)
[2017-09-01] MEDS: methylPREDNISolone INJ 125 MG/2 ML VIAL (J2930) IV SCH ×3 (05:51→22:25)
[2017-09-01 06:00] VITALS: BP 120/57
[2017-09-01 06:32] LABS: MEAN CORPUSCULAR HEMOGLOBIN 29.3 pg (27.0-33.0); MEAN CORPUSCULAR VOLUME 88.8 fl (80.0-96.0); PLATELET COUNT, AUTOMATED 295 10^3/uL (150-450); RED CELL DISTRIBUTION WIDTH 14.1 % (11.5-14.5); WHITE BLOOD COUNT 19.1 10^3/uL (4.0-10.0)
[2017-09-01 06:57] LABS: CALCIUM LEVEL 9.1 MG/DL (8.8-10.2); CREATININE FOR GFR 2.81 MG/DL (0.55-1.02); POTASSIUM SERUM 4.9 MEQ/L (3.5-5.1)
[2017-09-01] MEDS: HumaLOG INSULIN (NovoLOG) PER UNIT SC SCH ×4 (08:32→21:00)
[2017-09-01] MEDS: CALCITRIOL 0.25 MCG CAP (S0169) PO SCH (08:32)
[2017-09-01] MEDS: SENOKOT S TAB PO SCH ×2 (08:32→21:00)
[2017-09-01] MEDS: PANTOPRAZOLE 40MG TAB (PROTONIX) PO SCH ×2 (08:33→22:23)
[2017-09-01] MEDS: FLUoxetine 20 MG CAP PO SCH ×2 (08:33→22:23)
[2017-09-01] MEDS: SOLIFENACIN 5 MG TAB PO SCH (08:33)
[2017-09-01] MEDS: LACTOBACILLUS ACIDOPHILUS CAP (BACID) PO SCH ×3 (08:33→18:10)
[2017-09-01] MEDS: METOPROLOL TART 25 MG TABLET PO SCH ×2 (08:36→22:24)
[2017-09-01] MEDS ORDERED: NS 1,000 ML IV SCH (12:00)
--- NOTE | 2017-09-01 12:29 | IPNPDOC ---
Subjective Date Seen The patient was seen on 09/01/17. Subjective Chief Complaint/HPI The patient is a 62-year-old female admitted with a reason for visit of Non Small Cell Cancer Of Right Lung,Pneumonia. Events since last encounter Continues with weakness. Desaturating into the 84% range with exertion while on 2LNC while using stairs. Constitutional: Denies: Chills, Fever, Night Sweats ENT: Denies: Head Aches, Ear Pain, Dysphagia, Sinus Congestion, Post Nasal Drip , Sore Throat, Epistaxis, Other Symptoms Skin: Denies: Rash, Lesions, Breakdown Pulmonary: Reports: Dyspnea, Cough Cardiovascular: Denies: Chest Pain, Palpitations, Orthopnea, Paroxysmal Noc. Dyspnea, Lt Headedness Gastrointestinal: Denies: Nausea, Vomiting, Abdominal Pain, Diarrhea, Constipation Psych: Reports: Mood Normal, Denies: Depression, Memory Issues Objective Physical Examination General Exam: Positive: Alert, No Acute Distress Chest Exam: Positive: Clear to auscultation, Negative: Rales, Rhonchi, Wheezing Heart Exam: Positive: Rate Normal, Regular Rhythm Abdomen Exam: Positive: Normal bowel sounds, Soft, Negative: Tenderness Extremity Exam: Negative: Edema Assessment /Plan Problems (1) Pneumonia Status: Acute Response to Treatment: Improving Problem Text: : seems to have mildly improved exertional tolerance with increase in Steroid dosing. Continue to work on conditioning. 08/31/17: trial higher dose steroid for pneumonitis. 08/30/17: CXR unchanged. Hypoxic with exertion with severe fatigue. Continue with oxygen on exertion. 08/29/17: will repeat CXR today. Remains hypoxic with exertion. may need at home oxygen Suspect radiation pneumonitis WBC trending down - cahnge to po Augmentin. continue prednisone Still desats with ambulation on oxygen Encourage IS (2) Chronic kidney disease Status: Chronic Response to Treatment: Worse Problem Text: 08/26 - REnal function back to baseline. D/C IVF - monitor trend if diarrhea persists. (3) Non-small cell cancer of right lung Status: Chronic Problem Text: Per Oncology - she missed her Chemo appt yesterday (4) DM2 (diabetes mellitus, type 2) Status: Chronic Response to Treatment: Stable Problem Text: continue SSI (5) CAD (coronary artery disease) Status: Chronic Response to Treatment: Stable (6) Diarrhea Status: Acute Problem Text: -GI panel negative. Imodium prn. Diarrhea persists. GI panel negative check C.Diff. If negative, will give Imodium since patient has to use this periodically at home Plan/VTE VTE Prophylaxis Ordered?: Yes (Lovenox) VS, I&O, 24H, Fishbone Vital Signs/I&O Vital Signs Date Time Temp Pulse Resp B/P (MAP) Pulse Ox O2 Delivery O2 Flow Rate FiO2 09/01/17 08:36 74 143/77 09/01/17 06:00 98.3 16 91 Room Air 08/30/17 14:00 1.0 I&O- Last 24 Hours up to 6 AM 09/02/17 06:00 Intake Total 240 ml Output Total 250 ml Balance -10 ml Laboratory Data 24H LABS Laboratory Tests 2 08/31/17 16:51: Bedside Glucose (Misc Panel) 257H 08/31/17 20:30: Bedside Glucose (Misc Panel) 331H 09/01/17 06:14: Nucleated Red Blood Cells % (auto) 0.0, Anion Gap 9, Glomerular Filtration Rate 18.0L, Blood Urea Nitrogen 55H, Creatinine 2.81H, Sodium Level 135L, Potassium Level 4.9, Chloride Level 100, Carbon Dioxide Level 26, Calcium Level 9.1 09/01/17 11:25: Bedside Glucose (Misc Panel) 198H CBC/BMP Laboratory Tests 09/01/17 06:14 Red Blood Count 4.54, Mean Corpuscular Volume 88.8, Mean Corpuscular Hemoglobin 29.3, Mean Corpuscular Hemoglobin Concent 33.0, Red Cell Distribution Width 14.1 , Calcium Level 9.1 Microbiology Microbiology 08/22/17 Blood Culture - Final, Complete NO GROWTH AFTER 5 DAYS 08/22/17 Blood Culture - Final, Complete NO GROWTH AFTER 5 DAYS 08/28/17 Clostridium difficile (PCR) - Final, Complete 08/25/17 Gastrointestinal Tract Panel (PCR) - Final, Complete 08/23/17 MRSA Screen - Final, Complete 08/23/17 Respiratory Virus Panel (PCR) (BRET) - Final, Complete 08/22/17 Influenza Virus Type A Antigen - Final, Complete 08/22/17 Influenza Virus Type B Antigen - Final, Complete Britney Villegas [employer] SUPERVISOR Sep 01, 2017 12:29
--- NOTE | 2017-09-01 12:36 | REP ---
Chest two views HISTORY: Elevated white count Comparison: 08/29/2017 There is loss of volume in the right hemithorax. Parenchymal densities are present in the perihilar regions of the upper lobes and lower lobes greater on the right than on the left. This is consistent with postradiation change. The patient's known right lower lobe mass is not seen. The heart is normal in size. The pulmonary vasculature is normal in appearance. The bony structure is intact. IMPRESSION: There postradiation changes in the lungs greater on the right than on the left unchanged compared to the previous study. Signed by Marquis Mendosa MD 09/01/2017 12:28 P
[2017-09-01 14:00] VITALS: BP 137/74
[2017-09-01 22:00] VITALS: BP 140/64
[2017-09-01] MEDS: ASPIRIN 81 MG ENTERIC TAB PO SCH (22:23)
[2017-09-01] MEDS: CLOPIDOGREL 75 MG TAB PO SCH (22:23)
[2017-09-01] MEDS: ENOXAPARIN 30 MG/0.3 ML SYR (J1650) SC SCH (22:24)
[2017-09-01] MEDS: ATORVASTATIN 20 MG TAB PO SCH (22:24)
[2017-09-02] MEDS: IPRATROPIUM 0.5MG/ALBUTEROL 2.5MG INH SOL UD 3ML (DUONEB)(J7620) NEB SCH ×5 (01:16→22:43)
[2017-09-02] MEDS: methylPREDNISolone INJ 125 MG/2 ML VIAL (J2930) IV SCH (05:39)
[2017-09-02 06:00] VITALS: BP 127/61
[2017-09-02 06:45] LABS: MEAN CORPUSCULAR HEMOGLOBIN 29.1 pg (27.0-33.0); MEAN CORPUSCULAR HGB CONC 33.1 g/dl (32.0-36.5); PLATELET COUNT, AUTOMATED 289 10^3/uL (150-450); WHITE BLOOD COUNT 24.3 10^3/uL (4.0-10.0)
[2017-09-02 07:09] LABS: CALCIUM LEVEL 8.5 MG/DL (8.8-10.2); CREATININE FOR GFR 2.56 MG/DL (0.55-1.02); GLOMERULAR FILTRATION RATE 20.1 (>45); POTASSIUM SERUM 4.7 MEQ/L (3.5-5.1)
[2017-09-02] MEDS: LACTOBACILLUS ACIDOPHILUS CAP (BACID) PO SCH ×3 (09:33→17:10)
[2017-09-02] MEDS: SOLIFENACIN 5 MG TAB PO SCH (09:33)
[2017-09-02] MEDS: HumaLOG INSULIN (NovoLOG) PER UNIT SC SCH ×4 (09:33→21:13)
[2017-09-02] MEDS: CALCITRIOL 0.25 MCG CAP (S0169) PO SCH (09:33)
[2017-09-02] MEDS: FLUoxetine 20 MG CAP PO SCH ×2 (09:33→21:54)
[2017-09-02] MEDS: PANTOPRAZOLE 40MG TAB (PROTONIX) PO SCH ×2 (09:33→21:54)
[2017-09-02] MEDS: METOPROLOL TART 25 MG TABLET PO SCH ×2 (09:33→21:54)
[2017-09-02] MEDS: SENOKOT S TAB PO SCH ×2 (09:34→21:53)
--- NOTE | 2017-09-02 09:46 | IPNPDOC ---
Subjective Date Seen The patient was seen on 09/02/17. Subjective Chief Complaint/HPI The patient is a 62-year-old female admitted with a reason for visit of Non Small Cell Cancer Of Right Lung,Pneumonia. Events since last encounter Continues with dyspnea and hypoxia, yet recovers quickly with no change or elevation in HR. Willing to go home with oxygen if necessary. Objective Physical Examination General Exam: Positive: Alert, No Acute Distress Chest Exam: Positive: Clear to auscultation, Negative: Rales, Rhonchi, Wheezing Heart Exam: Positive: Rate Normal, Regular Rhythm Abdomen Exam: Positive: Normal bowel sounds, Soft, Negative: Tenderness Extremity Exam: Negative: Edema Assessment /Plan Problems (1) Pneumonia Status: Acute Response to Treatment: Improving Problem Text: 09/02/17: Transition to Prednisone. Arrange for home oxygen today in anticipation of DC home tomorrow. : seems to have mildly improved exertional tolerance with increase in Steroid dosing. Continue to work on conditioning. 08/31/17: trial higher dose steroid for pneumonitis. 08/30/17: CXR unchanged. Hypoxic with exertion with severe fatigue. Continue with oxygen on exertion. 08/29/17: will repeat CXR today. Remains hypoxic with exertion. may need at home oxygen Suspect radiation pneumonitis WBC trending down - cahnge to po Augmentin. continue prednisone Still desats with ambulation on oxygen Encourage IS (2) Chronic kidney disease Status: Chronic Response to Treatment: Worse Problem Text: 08/26 - REnal function back to baseline. D/C IVF - monitor trend if diarrhea persists. (3) Non-small cell cancer of right lung Status: Chronic Problem Text: Per Oncology - she missed her Chemo appt yesterday (4) DM2 (diabetes mellitus, type 2) Status: Chronic Response to Treatment: Stable Problem Text: continue SSI (5) CAD (coronary artery disease) Status: Chronic Response to Treatment: Stable (6) Diarrhea Status: Acute Problem Text: -GI panel negative. Imodium prn. Diarrhea persists. GI panel negative check C.Diff. If negative, will give Imodium since patient has to use this periodically at home Plan/VTE VTE Prophylaxis Ordered?: Yes (Lovenox) VS, I&O, 24H, Fishbone Vital Signs/I&O Vital Signs Date Time Temp Pulse Resp B/P (MAP) Pulse Ox O2 Delivery O2 Flow Rate FiO2 11/10/17 06:00 96.9 68 16 127/61 (83) 92 Room Air 08/30/17 14:00 1.0 I&O- Last 24 Hours up to 6 AM 09/03/17 05:59 Intake Total 180 ml Output Total 1100 ml Balance -920 ml Laboratory Data 24H LABS Laboratory Tests 2 09/01/17 11:25: Bedside Glucose (Misc Panel) 198H 09/01/17 16:36: Bedside Glucose (Misc Panel) 193H 09/02/17 05:51: Nucleated Red Blood Cells % (auto) 0.0, Anion Gap 10, Glomerular Filtration Rate 20.1L, Blood Urea Nitrogen 61H, Creatinine 2.56H, Sodium Level 136, Potassium Level 4.7, Chloride Level 104, Carbon Dioxide Level 22, Calcium Level 8.5L CBC/BMP Laboratory Tests 09/02/17 05:51 Red Blood Count 4.26, Mean Corpuscular Volume 88.0, Mean Corpuscular Hemoglobin 29.1, Mean Corpuscular Hemoglobin Concent 33.1, Red Cell Distribution Width 14.0 , Calcium Level 8.5 L Microbiology Microbiology 08/28/17 Clostridium difficile (PCR) - Final, Complete 08/25/17 Gastrointestinal Tract Panel (PCR) - Final, Complete 08/23/17 MRSA Screen - Final, Complete 08/23/17 Respiratory Virus Panel (PCR) (BRET) - Final, Complete Britney Villegas [employer] Sep 02, 2017 09:46
[2017-09-02 14:00] VITALS: BP 116/59
[2017-09-02] MEDS ORDERED: predniSONE 20 MG TAB PO SCH (16:00)
[2017-09-02] MEDS ORDERED: diphenhydrAMINE 25 MG CAP PO PRN (21:45)
[2017-09-02] MEDS: ATORVASTATIN 20 MG TAB PO SCH (21:53)
[2017-09-02] MEDS: ASPIRIN 81 MG ENTERIC TAB PO SCH (21:53)
[2017-09-02] MEDS: CLOPIDOGREL 75 MG TAB PO SCH (21:54)
[2017-09-02] MEDS: ENOXAPARIN 30 MG/0.3 ML SYR (J1650) SC SCH (21:54)
[2017-09-02 22:00] VITALS: BP 147/82
[2017-09-03 06:00] VITALS: BP 129/60
[2017-09-03 06:17] LABS: MEAN CORPUSCULAR HEMOGLOBIN 28.9 pg (27.0-33.0); MEAN CORPUSCULAR HGB CONC 32.5 g/dl (32.0-36.5); PLATELET COUNT, AUTOMATED 275 10^3/uL (150-450); RED CELL DISTRIBUTION WIDTH 14.2 % (11.5-14.5)
[2017-09-03 06:33] LABS: CALCIUM LEVEL 8.6 MG/DL (8.8-10.2); CREATININE FOR GFR 2.54 MG/DL (0.55-1.02); GLOMERULAR FILTRATION RATE 20.3 (>45)
[2017-09-03 06:34] LABS: POTASSIUM SERUM 5.2 MEQ/L (3.5-5.1)
[2017-09-03] MEDS: IPRATROPIUM 0.5MG/ALBUTEROL 2.5MG INH SOL UD 3ML (DUONEB)(J7620) NEB SCH ×2 (07:44→14:00)
[2017-09-03] MEDS: FLUoxetine 20 MG CAP PO SCH (08:47)
[2017-09-03] MEDS: SOLIFENACIN 5 MG TAB PO SCH (08:47)
[2017-09-03] MEDS: PANTOPRAZOLE 40MG TAB (PROTONIX) PO SCH (08:47)
[2017-09-03] MEDS: CALCITRIOL 0.25 MCG CAP (S0169) PO SCH (08:47)
[2017-09-03] MEDS: SENOKOT S TAB PO SCH (08:47)
[2017-09-03 08:48] VITALS: BP 129/60
[2017-09-03] MEDS: METOPROLOL TART 25 MG TABLET PO SCH (08:48)
[2017-09-03] MEDS: LACTOBACILLUS ACIDOPHILUS CAP (BACID) PO SCH ×2 (08:48→13:22)
[2017-09-03] MEDS: HumaLOG INSULIN (NovoLOG) PER UNIT SC SCH ×2 (08:49→13:22)
[2017-09-03] MEDS ORDERED: predniSONE 20 MG TAB PO SCH (09:00)
[2017-09-03 14:00] VITALS: BP 123/66
--- NOTE | 2017-09-04 16:20 | DSES ---
DATE OF ADMISSION: 08/22/2017 DATE OF DISCHARGE: 09/03/2017 DISCHARGE DIAGNOSES: 1. Respiratory distress, radiation pneumonitis. 2. Congestive heart failure (CHF) acute on chronic, secondary to diastolic dysfunction. 3. Chronic kidney disease stage IV. 4. [id number] lung cancer. 5. Coronary artery disease. 6. Diabetes mellitus type 2. 7. Multiple sclerosis. HOSPITAL COURSE: The patient was initially placed on broad-spectrum renally dosed antibiotic Zosyn and steroid for bronchospasm. Her dyspnea slowly improved and it was felt that this was more of a radiation pneumonitis rather than an actual pneumonia. CT of the chest from 08/22/2017, showed paramediastinal honey-combing bilateral and stable right lower lung mass, but without infiltrate. The patient had diarrhea while hospitalized. Her Clostridium (C.) difficile polymerase chain reaction (PCR) was negative. Blood cultures times two were negative. Influenza screen was negative. Methicillin-resistant Staphylococcus aureus (MRSA) screen was negative. Transthoracic echocardiogram (TTE) was done while she was hospitalized, revealing a left ventricular ejection fraction (LVEF) of 60/65% with moderate mitral regurgitation (MR) and normal central venous pressure (CVP). The patient was discharged to home on her routine medications as per history of present illness (HPI), except for a weaning dose of prednisone. Her blood sugars were mildly elevated in the low 200s on the prednisone; they were declining as we tapered this off such that no therapy was started for this. Today she was on [address] on 40 daily for three days, and then 20 daily until seen in the clinic by primary care provider (PCP) in five days.
== END 2017-09-03 17:31 | disposition home or self-care (01) | DRG 206 ==
LOC: M ED 14:02 → M ED INP 16:56 → M MS5PR 21:10 → M MSPAV 08-23 00:27
PROVIDERS: ADMIT Internal Medicine; ATTEND Family Medicine
DX: J70.0 Acute pulmonary manifestations due to radiation (principal); I50.32 Chronic diastolic (congestive) heart failure; N18.4 Chronic kidney disease, stage 4 (severe); I13.0 Hypertensive heart and chronic kidney disease with heart failure and stage 1 through stage 4 chronic kidney disease, or unspecified chronic kidney disease; C34.91 Malignant neoplasm of unspecified part of right bronchus or lung; N17.9 Acute kidney failure, unspecified; Z68.41 Body mass index [BMI] 40.0-44.9, adult; I25.10 Atherosclerotic heart disease of native coronary artery without angina pectoris; I25.2 Old myocardial infarction; E11.22 Type 2 diabetes mellitus with diabetic chronic kidney disease; E11.40 Type 2 diabetes mellitus with diabetic neuropathy, unspecified; E11.21 Type 2 diabetes mellitus with diabetic nephropathy; E11.319 Type 2 diabetes mellitus with unspecified diabetic retinopathy without macular edema; E78.5 Hyperlipidemia, unspecified; G47.33 Obstructive sleep apnea (adult) (pediatric); G35 Multiple sclerosis; E66.01 Morbid (severe) obesity due to excess calories; J44.9 Chronic obstructive pulmonary disease, unspecified; F32.9 Major depressive disorder, single episode, unspecified; E55.9 Vitamin D deficiency, unspecified; M85.80 Other specified disorders of bone density and structure, unspecified site; T36.95XA Adverse effect of unspecified systemic antibiotic, initial encounter; R19.7 Diarrhea, unspecified; K21.9 Gastro-esophageal reflux disease without esophagitis; N39.41 Urge incontinence; Z92.3 Personal history of irradiation; Z87.891 Personal history of nicotine dependence; Z88.5 Allergy status to narcotic agent; Z79.82 Long term (current) use of aspirin; Z79.02 Long term (current) use of antithrombotics/antiplatelets; Z79.84 Long term (current) use of oral hypoglycemic drugs; Z95.5 Presence of coronary angioplasty implant and graft; Z91.81 History of falling; Z79.899 Other long term (current) drug therapy

== ENCOUNTER 2017-09-09 18:04 | Emergency (ER) | payer MEDICARE, MEDICAID ==
[~2017-09-09] VITALS: Ht 160 cm; Wt 95.5 kg
[~2017-09-09 18:04] MED LIST changes: +CLOT1CRE6 TOP; +KEYT1INJ IV; +NYST10CR TOP; +NYST1POW9 TOP
[2017-09-09] MEDS ORDERED: NS 1,000 ML IV ONE (19:45)
[2017-09-09] MEDS ORDERED: MORPHINE 2 MG/ML 1ML SYRINGE IV ONE (20:00)
[2017-09-09 22:52] LABS: BASO % 0.3 % (0.0-1.0); EOS # 0.3 10^3/uL (0.0-0.50); EOS % 3.2 % (0.0-3.0); IMMATURE GRANULOCYTE % 1.5 % (0-0); LYMPH # 0.8 10^3/uL (1.5-4.5); LYMPH % 8.1 % (24.0-44.0); MEAN CORPUSCULAR HEMOGLOBIN 29.4 pg (27.0-33.0); MEAN CORPUSCULAR VOLUME 91.9 fl (80.0-96.0); MONO # 1.1 10^3/uL (0.0-0.8); MONO % 10.2 % (0.0-5.0); NEUTROPHILS # 7.9 10^3/uL (1.8-7.7); NEUTROPHILS % 76.7 % (36.0-66.0); PLATELET COUNT, AUTOMATED 201 10^3/uL (150-450); RED CELL DISTRIBUTION WIDTH 14.6 % (11.5-14.5); WHITE BLOOD COUNT 10.3 10^3/uL (4.0-10.0)
[2017-09-09 23:16] LABS: ALBUMIN/GLOBULIN RATIO 0.54 (1.00-1.93); BILIRUBIN,TOTAL 0.4 MG/DL (0.2-1.0); CREATININE FOR GFR 2.78 MG/DL (0.55-1.02); GLOMERULAR FILTRATION RATE 18.3 (>45); POTASSIUM SERUM 4.7 MEQ/L (3.5-5.1); TOTAL PROTEIN 5.7 GM/DL (6.4-8.2)
[2017-09-10 00:24] VITALS: BP 115/66
== END 2017-09-10 00:46 | disposition home or self-care (01) ==
LOC: M ED 18:04
DX: M51.36 Other intervertebral disc degeneration, lumbar region (principal); M47.816 Spondylosis without myelopathy or radiculopathy, lumbar region; G89.29 Other chronic pain; N18.4 Chronic kidney disease, stage 4 (severe); E11.9 Type 2 diabetes mellitus without complications; I25.10 Atherosclerotic heart disease of native coronary artery without angina pectoris; C34.90 Malignant neoplasm of unspecified part of unspecified bronchus or lung; G35 Multiple sclerosis; Z79.01 Long term (current) use of anticoagulants; Z79.899 Other long term (current) drug therapy; Z79.82 Long term (current) use of aspirin; Z95.5 Presence of coronary angioplasty implant and graft; I25.2 Old myocardial infarction; H46.9 Unspecified optic neuritis; Z87.442 Personal history of urinary calculi; Z87.891 Personal history of nicotine dependence

== ENCOUNTER 2017-09-14 06:23 | Inpatient (IN) | payer MEDICARE, MEDICAID ==
[~2017-09-14] VITALS: Ht 149.9 cm; Wt 96.5 kg
[2017-09-14] MEDS ORDERED: IPRATROPIUM 0.5MG/ALBUTEROL 2.5MG INH SOL UD 3ML (DUONEB)(J7620) NEB ONE (06:45)
[2017-09-14] MEDS ORDERED: CEFTRIAXONE SOD 1 GM in APPROPRIATE DILUENT 1 EA IV ONE (07:45)
[2017-09-14 07:47] LABS: BASO % 0.3 % (0.0-1.0); EOS # 0.3 10^3/uL (0.0-0.50); EOS % 2.3 % (0.0-3.0); IMMATURE GRANULOCYTE % 1.4 % (0-0); LYMPH # 0.5 10^3/uL (1.5-4.5); LYMPH % 3.7 % (24.0-44.0); MEAN CORPUSCULAR HEMOGLOBIN 29.5 pg (27.0-33.0); MEAN CORPUSCULAR HGB CONC 32.2 g/dl (32.0-36.5); MEAN CORPUSCULAR VOLUME 91.8 fl (80.0-96.0); MONO # 0.6 10^3/uL (0.0-0.8); MONO % 4.5 % (0.0-5.0); NEUTROPHILS # 11.7 10^3/uL (1.8-7.7); NEUTROPHILS % 87.8 % (36.0-66.0); PLATELET COUNT, AUTOMATED 221 10^3/uL (150-450); RED CELL DISTRIBUTION WIDTH 14.8 % (11.5-14.5); WHITE BLOOD COUNT 13.3 10^3/uL (4.0-10.0)
--- NOTE | 2017-09-14 08:22 | REP ---
Clinical: Dyspnea. Comparison: Multiple examinations dated through 08/22/2017. Findings: The lung parker demonstrate stable diffuse fibrosis and interstitial disease (right greater than left). Superimposed acute lower lobe infiltrates cannot be excluded, but no significant change is appreciated when compared to 09/01/2017. No definite effusion. No pneumothorax. Visualized mediastinum and cardiac silhouette stable. Skeletal structures intact. Impression: Stable fibrosis and interstitial changes. Subtle superimposed acute lower lobe infiltrates cannot be excluded. Signed by Tyler Malave MD 09/14/2017 08:12 A
[2017-09-14 08:25] LABS: ANION GAP 10 MEQ/L (8-16); BLOOD UREA NITROGEN 36 MG/DL (7-18); CALCIUM LEVEL 8.2 MG/DL (8.8-10.2); CARBON DIOXIDE LEVEL 23 MEQ/L (21-32); CHLORIDE LEVEL 108 MEQ/L (98-107); CREATININE FOR GFR 3.42 MG/DL (0.55-1.02); GLOMERULAR FILTRATION RATE 14.4 (>45); GLUCOSE, FASTING 42 MG/DL (80-110); POTASSIUM SERUM 4.6 MEQ/L (3.5-5.1); SODIUM LEVEL 141 MEQ/L (136-145)
[2017-09-14 08:30] LABS: ABG BASE EXCESS -5.3 (-2.0-2.0); ABG HCO3 19.3 MEQ/L (22.0-26.0); ABG PARTIAL PRESSURE CO2 34.5 mmHg (35.0-45.0); ABG PARTIAL PRESSURE O2 65.4 mmHg (75.0-100.0); ABG TOTAL CO2 20.3 MEQ/L (23.0-31.0); ABG pH (ARTERIAL) 7.365 UNITS (7.350-7.450)
[2017-09-14 08:31] LABS: ALBUMIN 2.2 GM/DL (3.2-5.2); ALBUMIN/GLOBULIN RATIO 0.55 (1.00-1.93); BILIRUBIN,DIRECT 0.2 MG/DL (0.0-0.2); BILIRUBIN,TOTAL 0.5 MG/DL (0.2-1.0); TOTAL PROTEIN 6.2 GM/DL (6.4-8.2)
[2017-09-14] MEDS: DOCUSATE SODIUM 100 MG CAP PO SCH ×2 (09:00→21:31)
[2017-09-14] MEDS ORDERED: CALCITRIOL 0.25 MCG CAP (S0169) PO SCH (09:00)
[2017-09-14] MEDS ORDERED: FUROSEMIDE 40 MG/4 ML VIAL (J1940) IV ONE (09:00)
[2017-09-14] MEDS ORDERED: SOLIFENACIN 5 MG TAB PO SCH (09:00)
--- NOTE | 2017-09-14 09:36 | ECGEPIP ---
Stationary ECG Study [facility] - ED Test Date: 2017-09-14 Pat Name: TYRA FAJARDO Department: Room: - Gender: F Yoke Presser: CELESTE : 1955 Requested By: JAVI Feliz Order Number: [id number] Reading MD: Evelin Castellanos Measurements Intervals [place] Rate: 86 P: 32 ID: [id number] QRS: 24 QRSD: 102 T: 1 QT: 403 QTc: 482 Interpretive Statements SINUS RHYTHM POSSIBLE INFERIOR MYOCARDIAL INFARCTION, PROBABLY OLD NSTTW ABNORMALITY PROLONGED QTC SIMILAR 08/22/17 Electronically Signed On 09-14-2017 9:35:39 EST by Evelin Castellanos
[2017-09-14] MEDS ORDERED: AZITHROMYCIN INJ 500 MG, VIAL MATE ADAPTER 1 EACH in D5W 250 ML IV ONE (10:15)
--- NOTE | 2017-09-14 10:27 | REP ---
CT CHEST WITHOUT CONTRAST: HISTORY: Known carcinoma, CHF versus infiltrates. Comparison is made with recent chest x-rays as well as comparison prior chest CT study from 08/22/2017. CT FINDINGS: Again noted is a bilateral perihilar pattern of fibrosis, honeycombing, and cystic bronchiectasis consistent with postradiation change and COPD. This is much more extensive on the right than the left. In the right middle lobe distribution, today's study shows progressive volume loss compared to the 08/22/2017 study. Similarly, in the right lower lobe distribution there is more parenchymal opacity and more prominent air bronchograms than were present previously. There is a persistent mass-like opacity a little more caudally positioned in the right lower lobe, which is unchanged. There is a similar smaller area in the left infrahilar region in the left lower lobe, which is also unchanged. There are new patchy areas of alveolar consolidation in the left lower lobe and lingula. No pleural effusion or pericardial effusion is seen. No adrenal mass is observed. There is a low-density lesion at the bottom of the imaging field of view consistent with an upper pole cyst on the left kidney, unchanged. Vascular calcification is seen in the coronary artery distribution. IMPRESSION: Advanced COPD and postradiation changes with bilateral bronchiectasis. There are areas of increased or new consolidation bilaterally in the lungs, consistent with pneumonia. Signed by Shan Chung MD 09/14/2017 11:45 A
[2017-09-14] MEDS ORDERED: ACETAMINOPHEN TAB 650MG DOSE (2X325MG) PO PRN (11:15)
[2017-09-14] MEDS ORDERED: ONDANSETRON 4MG/2ML VIAL (J2405) IV PRN (11:15)
[2017-09-14] MEDS ORDERED: CLOTRIMAZOLE 1% TOPICAL CREAM 30GM TOP PRN (11:15)
[2017-09-14] MEDS ORDERED: BISACODYL 10 MG SUPP PR PRN (11:15)
[2017-09-14] MEDS ORDERED: NYSTATIN 100,000 UNITS/GM TOPICAL PWD 15 GM TOP PRN (11:15)
[2017-09-14] MEDS ORDERED: NYSTATIN CREAM 15 GM TOP PRN (11:15)
[2017-09-14] MEDS ORDERED: IPRATROPIUM 0.5MG/ALBUTEROL 2.5MG INH SOL UD 3ML (DUONEB)(J7620) NEB PRN (11:30)
[2017-09-14] MEDS ORDERED: ALBUTEROL SULFATE 2.5 MG/0.5 ML INH NEB SOLN INH PRN (11:30)
[2017-09-14] MEDS ORDERED: FUROSEMIDE 40 MG/4 ML VIAL (J1940) IV SCH (12:00)
[2017-09-14] MEDS: SENOKOT S TAB PO SCH ×2 (12:29→21:30)
[2017-09-14] MEDS: FLUoxetine 20 MG CAP PO SCH ×2 (12:29→21:30)
[2017-09-14] MEDS: METOPROLOL TART 25 MG TABLET PO SCH ×2 (12:30→21:29)
[2017-09-14] MEDS: PANTOPRAZOLE 40MG TAB (PROTONIX) PO SCH ×2 (12:31→21:30)
[2017-09-14 12:39] LABS: CALCIUM LEVEL 8.3 MG/DL (8.8-10.2); CREATININE FOR GFR 3.35 MG/DL (0.55-1.02); GLOMERULAR FILTRATION RATE 14.7 (>45); MAGNESIUM LEVEL 1.5 MG/DL (1.8-2.4); POTASSIUM SERUM 4.4 MEQ/L (3.5-5.1)
[2017-09-14] MEDS ORDERED: NS 1,000 ML IV ONE (12:45)
[2017-09-14] MEDS: MORPHINE 2 MG/ML 1ML SYRINGE IV PRN ×4 (12:48→22:44)
[2017-09-14] MEDS: IPRATROPIUM 0.5MG/ALBUTEROL 2.5MG INH SOL UD 3ML (DUONEB)(J7620) NEB SCH ×2 (14:30→20:33)
--- NOTE | 2017-09-14 15:58 | REP ---
LUMBOSACRAL SPINE: AP and lateral views of the lumbosacral spine are performed with two views obtained. There is no compression fracture. There is moderate diffuse spurring of the lower thoracic vertebral bodies as well as L1 and L2 with mild spurring of L3 through S1. There is mild disc space narrowing at all levels with subchondral sclerosis. There is sclerosis and spurring at the posterior facet joints particularly at L3-4 through L5-S1. There are vascular calcifications. There appears to be mild aneurysmal dilatation of the distal abdominal aorta, approximately 3.5 cm in maximum AP diameter. There is slight curvature towards the right. Posterior elements are intact. Signed by Dejan Ovalle MD 09/14/2017 04:20 P
[2017-09-14] MEDS ORDERED: VANCOMYCIN HCL 1,000 MG, VIAL MATE ADAPTER 1 EACH in D5W 250 ML IV STA (16:36)
[2017-09-14] MEDS ORDERED: VANCOMYCIN INTERMITTENT/PULSE DOSING BY CLINICAL PHARMACIST PER DOSING PROTOCOL XX SCH (16:45)
--- NOTE | 2017-09-14 17:51 | PHACANCOPD ---
PHARMACY VANCOMYCIN DOSING Pt Demographics Demographics Patient Age:62 , Weight:94.300 , Gender: female Adjusted Body Weight Date: 09/14/17, Adjusted Body Weight: [64.1] Kg Events Past 24 Hours Events Past 24 Hours: YES: Change in CrCl, Elevation in WBC, Pending Diagnostics Vancomycin Vancomycin indication: HCAP Vancomycin Target Ranges: 15-20 mcg/ml Vancomycin Load Y/N: No Load Dose Date Time Vancomycin Load Dose: Date: Time: Vancomycin Dose Date: 09/14/17. Current Vancomycin Dose: [1g x 1 dose, followed by intermittent dosing based on random levels] Intermittent Dosing?: Yes Labs Labs Item Value Date Time White Blood Count 13.3 10^3/uL H 09/14/17 0737 Creatinine 3.42 MG/DL H 09/14/17 0737 Creatinine 3.35 MG/DL H 09/14/17 1159 Micro Microbiology 09/14/17 Blood Culture, Received Pending 09/14/17 Blood Culture, Received Pending Creatinine Clearance Date:09/14/17. Estimated Creatinine Clearance: [~15ml/min]. Pending Labs Random vancomycin level scheduled 09/15/17 to be drawn with morning labs Assessment and Plan Maintaining Current Dose?: Yes Reason for dose change: No Dose Change Pharmacist Note Pharmacist Note Date: 09/14/17. Pharmacist note: Day #1 empiric vancomycin tx initiated with one dose of IV vancomycin 1000mg, followed by intermittent dosing based on random vancomycin levels for the treatment of HAP - aiming for a goal trough of 15-20mcg/ml. The patient has a PMH of COPD and Stage III RLL lung cancer and is s/p radiation therapy in June 2017. The patient is normally on oxygen at home, and pulse ox is currently WNL on high flow cannula. 09/14/17 CT scan demonstrated advanced COPD and post radiation changes with areas of increased or new consolidation bilaterally consistent with pneumonia. WBC is currently elevated, and the patient is afebrile. The patient has VERNA with a current scr of 3.35 (baseline scr ~2.1). No PMH of MRSA or vanco use here at [facility].B Blood cultures are pending. A random vancomycin level has been scheduled to be drawn tomorrow, 09/15/17, with morning labs. We will continue to monitor and schedule further levels/doses accordingly. EDIE W[facility] Sep 14, 2017 17:51
[2017-09-14] MEDS ORDERED: DILUENT IV SCH (20:00)
[2017-09-14] MEDS ORDERED: CEFEPIME HCL IV SCH (20:00)
[2017-09-14 20:24] VITALS: O2SAT 90
[2017-09-14] MEDS ORDERED: MAGNESIUM OXIDE 400 MG TAB (MAG-OX) PO SCH (21:00)
[2017-09-14] MEDS ORDERED: ASPIRIN 81 MG ENTERIC TAB PO SCH (21:00)
[2017-09-14] MEDS ORDERED: CLOPIDOGREL 75 MG TAB PO SCH (21:00)
[2017-09-14] MEDS ORDERED: ATORVASTATIN 20 MG TAB PO SCH (21:00)
[2017-09-14 21:18] VITALS: BP 133/68
[2017-09-14 21:29] VITALS: BP 133/68
[2017-09-15] MEDS ORDERED: NS 500 ML IV ONE ×2 (01:00→06:00)
[2017-09-15 01:09] VITALS: BP 91/51
[2017-09-15] MEDS: IPRATROPIUM 0.5MG/ALBUTEROL 2.5MG INH SOL UD 3ML (DUONEB)(J7620) NEB SCH (02:33)
[2017-09-15 02:35] VITALS: O2SAT 87
[2017-09-15 03:00] VITALS: BP 101/50
[2017-09-15 04:00] VITALS: BP 97/50
[2017-09-15] MEDS ORDERED: NITROGLYCERIN 0.4 MG SUBL TABLET SL PRN (05:15)
[2017-09-15 05:47] LABS: BASO # 0.1 10^3/uL (0.0-0.2); BASO % 0.4 % (0.0-1.0); EOS # 0.2 10^3/uL (0.0-0.50); EOS % 1.1 % (0.0-3.0); IMMATURE GRANULOCYTE % 3.2 % (0-0); LYMPH # 0.6 10^3/uL (1.5-4.5); LYMPH % 4.5 % (24.0-44.0); MEAN CORPUSCULAR HEMOGLOBIN 28.4 pg (27.0-33.0); MEAN CORPUSCULAR HGB CONC 31.4 g/dl (32.0-36.5); MEAN CORPUSCULAR VOLUME 90.2 fl (80.0-96.0); MONO # 0.6 10^3/uL (0.0-0.8); MONO % 4.4 % (0.0-5.0); NEUTROPHILS # 12.2 10^3/uL (1.8-7.7); NEUTROPHILS % 86.4 % (36.0-66.0); PLATELET COUNT, AUTOMATED 212 10^3/uL (150-450); RED CELL DISTRIBUTION WIDTH 15.1 % (11.5-14.5); WHITE BLOOD COUNT 14.2 10^3/uL (4.0-10.0)
[2017-09-15 06:16] LABS: MAGNESIUM LEVEL 1.6 MG/DL (1.8-2.4)
--- NOTE | 2017-09-15 06:18 | CR ---
DATE OF CONSULTATION: 09/14/2017 REQUESTING PHYSICIAN: Pam Villegas, nurse practitioner. CONSULTING PHYSICIAN: Dr. Cortes. REASON FOR CONSULTATION: Management of acute kidney injury superimposed on chronic kidney disease, and possible fluid overload. CHIEF COMPLAINT: Progressive shortness of breath. HISTORY OF PRESENT ILLNESS: Destiny Worrell is a 62-year-old female with past medical history of adenocarcinoma of the right lung, status post radiation, currently undergoing chemotherapy. Follows up with oncology as outpatient. She has chronic kidney disease stage IV with a baseline creatinine of around 2 to 2.5 at best, as per previous records. She was recently admitted at [facility] about three weeks ago with pneumonia and possible radiation pneumonitis. The patient presented to the hospital again with progressive shortness of breath, weakness. She reports that she gets short of breath on minimal walking and it improves after she lies down. She denies any orthopnea. The patient denies any lower extremity edema. The patient also reports some chills and cough. She was found to have elevated brain natriuretic peptide (BNP) on arrival in the emergency room. She was initially treated as a possible congestive heart failure (CHF) exacerbation. She was given intravenous (IV) Lasix. Skaggs catheter was placed. She made a good amount of urine. Nephrology service was called for further help in the management of this patient with possible fluid overload and history of chronic kidney disease stage IV. When I saw the patient in the emergency room, she had already received Lasix. She had made about 1.5 liters of urine by that time. The patient reported she was still short of breath. She was otherwise hemodynamically stable. PAST MEDICAL HISTORY: The patient has a past medical history of: 1. Adenocarcinoma of the right lung, status post radiation therapy, undergoing chemotherapy as outpatient. 2. History of coronary artery disease and history of myocardial infarction (OR) in the past. 3. Chronic kidney disease stage IV, baseline creatinine between 2.5 up to 3.0. 4. Diabetes mellitus type 2. 5. Obstructive sleep apnea. 6. Hypertension. 7. Multiple sclerosis. 8. Depression. 9. Gastroesophageal reflux disease. 10. History of congestive heart failure (CHF) with grade 1 diastolic dysfunction according to the latest echocardiogram done on 08/28/2017. PAST SURGICAL HISTORY: 1. Status post section times two. 2. Status post left breast biopsy. 3. Status post left oophorectomy. 4. History of lung biopsy in the past. 5. History of right eye cataract surgery. ALLERGIES: The patient is allergic to OXYCODONE and HYDROCODONE. FAMILY HISTORY: No significant family history of end-stage renal disease requiring dialysis. There is strong family history of lung cancer in a sister and father. SOCIAL HISTORY: The patient denies any recreational drug abuse or alcohol abuse. The patient is an ex-smoker. She quit smoking about eight months ago. REVIEW OF SYSTEMS: CONSTITUTIONAL: The patient reports feeling very weak and tired. EYES: She denies any blurry vision or double vision. ENT: She denies any ear discharge, dysphagia, or odynophagia. CARDIOVASCULAR: She denies any chest pain or palpitations. She denies any lower extremity edema. RESPIRATORY: The patient reports progressive shortness of breath and dyspnea on mild exertion. GASTROINTESTINAL (GI): She denies any nausea or vomiting, but she does report decreased appetite. GENITOURINARY: She denies any dysuria or hematuria. MUSCULOSKELETAL: She reports muscle weakness but she denies muscle aches and pains. ENDOCRINE: The patient is a known diabetic. HEMATOLOGIC/ONCOLOGIC: The patient has known adenocarcinoma of the right lung. CENTRAL NERVOUS SYSTEM (TRANSPORTATION INSPECTOR): The patient denies any weakness, strokes or seizures. SKIN: She denies any rashes or ulcers. PSYCHIATRIC: The patient reports history of anxiety. All other review of systems is negative. PHYSICAL EXAMINATION: GENERAL: The patient is awake, alert, and oriented times three, lying in bed flat, in no respiratory distress. VITAL SIGNS: Temperature is 96.2 degrees Fahrenheit, blood pressure is 163/76, pulse is 84, respiratory rate of 20, saturating 96% on nasal cannula. INTAKE AND OUTPUT: Urine output recorded so far is one liter. Weight in the bed scale is 94.5 kg. HEAD/NECK: Extraocular muscles intact. Pupils equal, round, and reactive to light. Mucous membranes are very dry. Neck is supple. There is no jugular venous distention (JVD). CARDIOVASCULAR: S1, S2. Regular rate. No murmur, rub, or gallop. RESPIRATORY: Decreased breath sounds at the right base, and some coarse crepitations on the left. ABDOMEN: Soft, positive bowel sounds. Old surgical abdominal scars. No organomegaly. MUSCULOSKELETAL: No clubbing or cyanosis. Pulses are 2+. No edema of the extremities. CENTRAL NERVOUS SYSTEM (TRANSPORTATION INSPECTOR): The patient has a history of multiple sclerosis. The patient is feeling very weak at this time. Otherwise, she is oriented times three. SKIN: No rashes or ulcers. LYMPHATIC: No significant cervical, axillary or inguinal lymphadenopathy. LABORATORY DATA: CBC showed a WBC of 13.3, hemoglobin is 11.8, platelets of 221. ABG showed pH of 7.36, pCO2 34.5, pO2 65.4, oxygen saturation is 93%. BMP showed sodium 140, potassium 4.4, chloride 104, bicarbonate, 26, BUN 36, creatinine 3.3. Calcium is 8.3, lactic acid 1.4, magnesium 1.5. Pro-BNP was 9708. MICROBIOLOGY: Blood cultures are pending. IMAGING: CT scan of the chest was done today without contrast, which showed advanced COPD and post-radiation changes with bilateral bronchiectasis. There were areas of new consolidation bilaterally in the lungs, consistent with pneumonia. CURRENT INPATIENT MEDICATIONS: The patient's medications were all reviewed by me. She is currently on IV azithromycin, cefepime and IV vancomycin. I gave her dose of normal saline one liter IV bolus. She is on nebulizations. - aspirin 81 mg daily - Lipitor 80 mg at bedtime - calcitriol 0.25 mcg daily - Plavix 75 mg at bedtime - Colace one tablet twice a day - fluoxetine 40 mg twice a day - she was given Lasix injection and she was on Lasix 40 mg every six hours which I stopped because the patient is volume depleted - magnesium 400 mg by mouth twice a day - metoprolol 25 mg by mouth twice a day - Protonix 40 mg twice a day - VESIcare 10 mg daily ASSESSMENT: A 62-year-old female with past medical history of adenocarcinoma of the right-side lung, status post radiation therapy, currently undergoing chemotherapy, history of grade 1 diastolic heart failure, admitted this time because of progressive shortness of breath secondary to healthcare-associated pneumonia and acute kidney injury superimposed on chronic kidney disease stage IV. PLAN: 1. Acute kidney injury superimposed on chronic kidney disease stage IV: The patient's baseline creatinine has been fluctuating between 2.5 to 3.0. Outpatient chemotherapy regimen is not known at this time. I would get the records. However, clinically the patient is not overloaded at this time. The patient looks like she is volume depleted secondary to pneumonia. I have stopped the Lasix at this time. I have given the patient a dose of normal saline one liter IV bolus times one dose. Continue to monitor intake and output. Continue the Skaggs catheter at this time. 2. Healthcare-associated pneumonia: The patient is status post radiation therapy. She is getting chemotherapy. She was recently admitted for pneumonitis about three weeks ago. Continue IV azithromycin, cefepime, and vancomycin at this time. Continue to monitor vancomycin level. Try to aim level between 15 to 20. Continue the nebulizations and high-flow nasal cannula at this time. 3. Congestive heart failure (CHF) with diastolic dysfunction: The patient's latest echocardiogram showed a normal ejection fraction with grade one diastolic dysfunction. Continue current dose of metoprolol 25 mg by mouth twice a day. I have held the diuretics at this time because of volume depletion and dehydration. 4. Secondary hyperparathyroidism: Continue current dose of calcitriol 0.25 mcg daily. 5. Anemia secondary to chronic kidney disease: The patient is currently on chemotherapy as well. She has mild anemia. Continue to monitor. No need of Aranesp administration at this time. 6. Hypomagnesemia: Continue current dose of magnesium oxide 400 mg by mouth twice a day. No need of aggressive IV magnesium because the patient as CKD stage IV. 7. Coronary artery disease: Continue current dose of aspirin, Lipitor, and Plavix. Continue metoprolol. Blood pressure is within the acceptable range at this time. Thank you for involving us in the care of this patient. We shall be happy to follow the patient along with you tomorrow morning.
[2017-09-15 06:36] LABS: ALBUMIN/GLOBULIN RATIO 0.39 (1.00-1.93); BILIRUBIN,TOTAL 0.8 MG/DL (0.2-1.0); CALCIUM LEVEL 8.6 MG/DL (8.8-10.2); CREATININE FOR GFR 4.53 MG/DL (0.55-1.02); GLOMERULAR FILTRATION RATE 10.4 (>45); TOTAL PROTEIN 7.1 GM/DL (6.4-8.2); VANCOMYCIN RANDOM 18.6 UG/ML
[2017-09-15 06:41] LABS: POTASSIUM SERUM 6.8 MEQ/L (3.5-5.1)
--- NOTE | 2017-09-15 06:50 | PHACANCOPD ---
PHARMACY VANCOMYCIN DOSING Pt Demographics Demographics Patient Age:62 , Weight:96.500 , Gender: female Adjusted Body Weight Date: 09/14/17, Adjusted Body Weight: [64.1] Kg Events Past 24 Hours Events Past 24 Hours: YES: Dialysis, Diuretic Therapy, Change in CrCl (CRCL INCREASE), Fever, Elevation in WBC, Pending Diagnostics, Pending Procedures, Other Vancomycin Vancomycin indication: HCAP Vancomycin Target Ranges: 15-20 mcg/ml Vancomycin Load Y/N: No Load Dose Date Time Vancomycin Load Dose: Date: Time: Vancomycin Dose Date: 09/14/17. Current Vancomycin Dose: [1000MG 09/15 @0800] Intermittent Dosing?: Yes Labs Labs Item Value Date Time White Blood Count 14.2 10^3/uL H 09/15/17 0538 Creatinine 4.53 MG/DL H 09/15/17 0538 Blood Urea Nitrogen 43 MG/DL H 09/15/17 0538 Vital Signs Label Value Date Time Patient Temperature 98.0 degrees F 09/15/17 0400 Temperature Source Temporal 09/15/17 0400 Micro Microbiology 09/14/17 Blood Culture, Received Pending 09/14/17 Blood Culture, Received Pending Creatinine Clearance Date:09/14/17. Estimated Creatinine Clearance: [~15ml/min]. Pending Labs Random vancomycin level scheduled 09/16/17 to be drawn with morning labs Assessment and Plan Maintaining Current Dose?: Yes Reason for dose change: No Dose Change Pharmacist Note Pharmacist Note Date: 09/15/17. Pharmacist note: Random of 18.6 is within target range. Dosed with 1000mg 11-23 @0800. Random level scheduled for - in am. Will continue to monitor and make adjustments as needed. ALISE ESPINOZA PHARMACY Sep 15, 2017 06:50
[2017-09-15 07:28] LABS: VENOUS BASE EXCESS -22.8 (-2.0-2.0); VENOUS O2 SATURATION 99.1 % (60.0-80.0); VENOUS PARTIAL PRESSURE CO2 22.5 mmHg (38.0-50.0); VENOUS PARTIAL PRESSURE O2 209.4 mmHg (30.0-50.0); VENOUS STANDARD HCO3 7.5 MEQ/L; VENOUS TOTAL CO2 6.7 MEQ/L (24.0-28.0)
[2017-09-15] MEDS ORDERED: CALCIUM GLUCONATE 1,000 MG in D5W MINI-BAG PLUS 100 ML IV ONE (07:30)
[2017-09-15] MEDS ORDERED: NS 1,000 ML IV ONE (07:30)
[2017-09-15] MEDS ORDERED: CALCIUM CHLORIDE 10% 1 GM/10 ML SYR As Ordered ONE (07:48)
--- NOTE | 2017-09-15 07:51 | ECGEPIP ---
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
[2017-09-15] MEDS ORDERED: VANCOMYCIN HCL 1,000 MG, VIAL MATE ADAPTER 1 EACH in D5W 250 ML IV ONE (08:00)
--- NOTE | 2017-09-15 08:03 | IPNPDOC ---
Text Note Date of Service The patient was seen on 09/15/17. NOTE Arrived at max cart minutes after it was called overhead. Patient was being bag mask ventilated, and receiving compressions. I attempted to obtain a definitive airway without success. I deferred to my colleague upon her arrival, who obtained airway. KRYSTLE WORLEY MD Sep 15, 2017 08:03
[2017-09-15] MEDS ORDERED: ENOXAPARIN 30 MG/0.3 ML SYR (J1650) SC SCH (09:00)
--- NOTE | 2017-09-16 11:19 | IPN ---
DATE: 09/15/2017 I was notified of the patient's decompensation at approximately 7:00 a.m. by the overnight attending. I arrived at the intensive care unit (ICU) at approximately 0710 hours. The patient was at that time being evaluated by Dr. Keith. The patient was unresponsive with an increased respiratory rate and a heart rate in the 90s with weak pulses. Nursing staff was unable to obtain a blood pressure and had been unable to obtain an ordered ABG. Normal saline bolus was ordered. Prior to normal saline being hung, the patient became pulseless and MAX cart was called at 0723 hours. Cardiopulmonary resuscitation (CPR) was initiated. At the time the patient became pulseless and apneic, her rhythm on her monitor was asystole. Epinephrine and calcium chloride were administered. After her second dose of epinephrine, the patient's CPR was stopped for a pulse check with the Doppler to right groin and a strong pulse was present at that time. Dr. Little made two attempts [address] place an endotracheal (ET) tube that were unsuccessful. Dr. Flannery was then subsequently able to place an endotracheal tube. Thereafter, the patient became pulseless and CPR was restarted. Pulse was present for a total of 6 minutes from 0731 hours to 0737 hours before CPR was restarted.The patient received a dose of amiodarone, an additional dose of epinephrine, an amp of bicarb, and additional dose of calcium chloride. Please see [facility] Cart Record for timing of administration of medications. A dopamine drip was initiated and an additional dose of epinephrine was given. During this time, the patient was noted to have bilious and bloody respiratory secretions that were suctioned. Throughout this encounter, I had multiple conversations with the patient's daughters and their significant others. At approximately 0755 hours, I spoke with the patient's daughters who asked that CPR be discontinued. At that time, the patient had PEA on the monitor with no palpable pulse. Time of was 0758 hours. Please see discharge summary for details of hospital course. [facility]
--- NOTE | 2017-09-16 16:09 | DSES ---
DATE OF ADMISSION: 09/14/2017 DATE OF DISCHARGE: 09/15/2017 62-year-old female who was admitted with the diagnosis of bibasilar pneumonia in the setting of right-sided carcinoma of the lung, acute on chronic renal failure and presumed congestive heart failure (CHF) secondary to an elevated BNP. The patient was treated for her pneumonia with Rocephin and Zithromax in the emergency room. Vancomycin and cefepime were also ordered to cover for atypicals due to the patient's increased risk of methicillin resistant Staphylococcus aureus (MRSA) and pseudomonas pneumonia given her immunocompromise from lung cancer. The patient was treated with nebulizer treatments. Overnight on 09/14/2017, the patient developed significant hypotension and required increased oxygen needs. She was given two boluses of 500 mL of normal saline with minimal relief. At approximately 0400 this morning, the patient continued to have hypotension and continued to have increased oxygen needs. On-call provider was called. 500 mL bolus was ordered and the patient was advised to transition to intensive care unit (ICU). The family medicine service evaluated the patient at 0700. The patient was significantly tachypneic, lethargic, minimally responsive with oxygen levels in the 60s. MAX cart was called. Attempt to resuscitate patient through ACLS protocol was attempted, see records for further information. Consult with Dr. Cortes, did evaluate the patient secondary to a history of chronic kidney disease stage IV and elevated creatinine. Dr. Cortes did advise to stop giving the patient Lasix and to replace IV fluids, for which he ordered. Family arrived and advised to stop cardiopulmonary resuscitation (CPR). Most recent laboratories show white blood cell count of 14,000, hemoglobin and hematocrit of 11 and 36, platelets 212. Chemistries show worsening creatinine of 4.53 with a potassium of 6.8, sodium 135, magnesium 1.6, AST 73, ALT 44, alkaline phosphatase 183. The patient had cardiac enzymes drawn this morning. Troponin 1.26, CK 14.8, CK-MB 10.7. In the emergency department, the patient did diurese approximately 1500 mL of urine after 40 mg of Lasix times one. The patient did not receive any further Lasix after the one time dose in the emergency department. The patient's routine medications were continued. DISPOSITION: Time of pronounced at 0758. DISCHARGE DIAGNOSES: 1. Multisystem organ failure in the setting of bibasilar pneumonia with bronchogenic carcinoma of the right lung and acute on chronic renal failure in the presence of prior history of coronary artery disease. 2. likely septic shock in setting of immunocompromise. ATTENDING PHYSICIAN: Dr. Teresa Rico ANODE ADJUSTER: Dr. Samir Cortes PRIMARY CARE PROVIDER: Dr. Edgardo SMITH
--- NOTE | 2017-09-17 13:19 | HPE ---
DATE OF ADMISSION: 09/14/2017 HISTORY OF PRESENT ILLNESS: 62-year-old female who presented to [facility] emergency room for complaints of dyspnea with exertion, significant shortness of breath at rest. On initial presentation to the emergency department (ED), patient was 86% on room air. She was placed on 3 liters nasal cannula with improvement of her oxygen saturation into the low 90s. Workup in the ED did prove positive for an elevated brain natriuretic peptide (BNP) of 9708, acute kidney injury with an elevated creatinine of 3.42. Patient's baseline is 2.5-2.7. Patient's initial white blood cell count was 13,000. Patient is status post chest x-ray as well as CT of the chest, which does show advanced chronic obstructive pulmonary disease (COPD), post radiation changes of bilateral bronchiectasis. There are areas of increased or new consolidation bilaterally in the lungs consistent with pneumonia. Patient received azithromycin 500 mg times one and ceftriaxone 1 gram IV times one. PAST MEDICAL HISTORY: Significant for: 1. 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 Patient is status post radiation and chemotherapy. She follows with both Dr. Arabella Shah and Dr. Burns. 2. Coronary artery disease. She is status post myocardial infarction (AR) with two stents. 3. 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 4. Significant COPD. 5. Hyperlipidemia. 6. Obstructive sleep apnea. 7. Hypertension. 8. Multiple sclerosis (MS). 9. Depression. 10. Chronic kidney disease, stage IV. 11. Osteopenia. 12. Gastroesophageal reflux disease. 13. Urinary urge incontinence. 14. Vitamin D deficiency. 15. Systolic heart failure with an ejection fraction of 40%. PAST SURGICAL HISTORY: 1. (C) section times two. 2. Left oophorectomy. 3. Left breast biopsy. 4. Lung biopsy. 5. Right cataract surgery. FAMILY HISTORY: Patient's father from lung cancer. Mother secondary to Alzheimer disease. She has a sister with a history of lung cancer as well Parkinson disease. SOCIAL HISTORY: Patient lives alone. She quit smoking approximately 8 months ago. She has a history of smoking one pack per day for 48 years. Denies any alcohol or recreational drug use. REVIEW OF SYSTEMS: Patient denies active fever or cold chills. Denies any significant weight changes. Does admit to significant fatigue. HEENT: Denies vision change, ear pain, sore throat, neck pain or lymph node enlargement. CARDIOVASCULAR: Denies chest pain or palpitations. Does admit to dyspnea with exertion. Denies any extremity edema. PULMONARY: Patient admits to a cough. Admits to dyspnea with exertion. She has a past medical history of significant COPD and radiation pneumonitis with previous hospitalization within the last 2 weeks. GASTROINTESTINAL: Denies abdominal pain, nausea, vomiting, diarrhea, constipation or blood in the stool. Last bowel movement (BM) was this morning. GENITOURINARY: Does have a history of urge incontinence. Denies any dysuria or urinary frequency, or changes in urinary habits. MUSCULOSKELETAL: Does admit to left upper back pain with movement. Denies any significant severe arthralgias. ENDOCRINE: Denies any significant heat intolerance. Denies any significant hair loss. NEUROLOGIC: Patient does have a past medical history of neuropathy and does have lower extremity sensitivity. SKIN: Denies any significant rashes, ulceration or any breakdown. PSYCHIATRIC: Does have a history of anxiety and depression, and is mildly anxious on this admission today. On physical exam, white blood cell count shows elevation of 13,000, hemoglobin and hematocrit of 11.8 and 36.7. Patient's platelets are 221. Chemistry shows sodium 141, potassium 4.6, BUN 36, creatinine 3.42. ABG: pH of 7.365, pCO2 of 34.5, pO2 65.4, bicarbonate 19.3. Imaging as previously stated with chest CT and chest x-ray. In general, patient is resting comfortably in exam room with her son at her bedside. She is chronically ill-appearing. HEENT: Neck is supple without palpable lymphadenopathy or visible jugular venous distention (JVD). Cardiovascular: Heart rate and rhythm are irregular. Pulmonary: Lungs are diminished throughout. No audible wheezing or rhonchi appreciated. Abdomen: Is soft and nontender with positive bowel sounds times all four quadrants. No palpable masses appreciated. However, exam is difficult secondary to patient's body habitus. Bilateral lower extremities: Without any edema. She does have some significant sensitivity to the anterior lower extremities secondary to her neuropathic pain. Pedal pulses are palpated bilaterally. Patient has a negative Homans sign. Patient's affect is mildly flat as well as restricted. Conversation is appropriate and congruent. She maintain eye contact. Neurologically, patient is alert and oriented times three and answers questions appropriately. ASSESSMENT: 1. Acute on chronic systolic congestive heart failure. 2. Acute kidney injury. 3. Pneumonia to both right and left lower lobe, bibasilar pneumonia. 4. 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 5. Chronic obstructive pulmonary disease with exacerbation. Secondary diagnoses include: 1. Coronary artery disease (CAD). 2. Multiple sclerosis. 3. Depression. 4. Hypertension. 5. Gastroesophageal reflux disease. 6. Urge incontinence. 7. Vitamin D deficiency. 8. Obstructive sleep apnea. 9. Diabetes, nephropathy and retinopathy. PLAN: Patient will be admitted. Expect at least a two midnight stay. For her acute congestive heart failure, we will start furosemide 40 mg IV every 6 hours for a net negative of 2 liters. [place] catheter has been placed for critical care monitoring. Regarding her respiratory status, DuoNebs every 6 and every 2 as needed. Patient's last hospitalization it was necessary to provide high dose steroids. At this time, we are going to try hold off on that. She has no active wheezing on exam. Oxygenation will be maintained in the 88-92% saturation. Patient does have home oxygen. Regarding acute kidney injury, we are going to consult patient's header up for monitoring. We will need to monitor electrolytes and renal function closely with her diuresis. Medications are as follows: - Tylenol 650 by mouth every 4 hours as needed for pain or fever - albuterol nebulizer every 2 hours as needed for shortness of breath or wheezing - DuoNebs every 6 hours - DuoNebs every 2 hours as needed for shortness of breath and wheezing - aspirin 81 mg one by mouth nightly - atorvastatin 80 mg by mouth nightly - bisacodyl 10 mg as needed for constipation - calcitriol 0.25 mcg by mouth daily - Plavix 75 mg by mouth nightly - Lotrimin daily as needed, rash or itching - Colace 100 mg by mouth twice a day - Prozac 40 mg by mouth twice a day - Lasix, as already stated, 40 mg intravenously every 6 hours for a net negative of 2 liters - metoprolol 25 mg by mouth twice a day - morphine as needed for pain - nystatin topically for rash or itching - Zofran 4 mg intravenously every 6 hours as needed for nausea or vomiting - Protonix 40 mg by mouth twice a day - Senna with Colace one tablet by mouth twice a day - VESIcare 10 mg by mouth daily Case has been discussed with Dr. Teresa Rico and she is in agreement with admission. We will monitor patient and follow closely. Family Medicine Attending Note: I saw and examined this patient on the day of admission; at the time of my evaluation, she appeared dry and nephrology agreed with this assessment, so lasix was discontinued and she was given IVF hydration. When I examined her, she was complaining of low back pain that radiated to her upper thighs and so x-ray of her lumbar and sacral spine was ordered. (OLEKSANDR) LUIS
--- NOTE | 2017-09-17 13:56 | RO ---
DATE OF PROCEDURE: 09/15/2017 PREPROCEDURE DIAGNOSIS: POSTPROCEDURE DIAGNOSIS: PROCEDURE PERFORMED: Endotracheal intubation. SURGEON: Kaila Flannery MD HEMSTITCHER: None. ANESTHESIA: BLOOD LOSS: None. DESCRIPTION OF PROCEDURE: IMAN dinh was called on this patient. When i arrived to the room cardiopulmonary resuscitation (CPR) was in progress. The patient was being bag masked. After this, one of my colleagues tried intubation, however, the patient had aspirated and there was trouble with the procedure so I took over the process. The patient was suctioned well, repositioned and with a curved blade #8 endotracheal tube was inserted after visualization of the laryngeal opening and the vocal cords. There were lots of food particles and yellow colored biliary secretions in the respiratory tract, which was successfully suctioned out. Color change was noted in the capnometer. Both sides were auscultated and equal breath sounds were heard. The endotracheal tube was fixed at 24 cm at the lip line. Ventilation was continued and CPR was continued.
--- NOTE | 2017-09-19 12:53 | IPN ---
DATE OF SERVICE: 09/14/2017 - 09/15/2017 I was on-call the evening of 09/14 through the morning of 09/15/2017 and rendered care for Destiny Worrell. I was unable to document that care on 09/15 as I was off from work from 09/15 to 09/19/2017 and had no access to [employer] to obtain a number to dictate. After receiving sign out on Destiny Worrell on the evening of 09/14, I was called on several occasions by the nursing staff for hypotension. Sign out indicated that the patient was volume depleted and had been seen by nephrology who had stopped Lasix and given IV fluids. I was called at one point for systolic pressures in the 80-90 range. I ordered a bolus of saline. Called to check on the patient, was told her pressures were back up in the 120-130 range. I was called again. Patient had sudden onset of "sharp" chest pain discretely located to a small area on the sternum, it did not radiate. I ordered sublingual nitroglycerine but when the nurse went to provide the nitroglycerine, the systolic pressure was found to be low and I gave another bolus of saline. I called to check on the patient. Pressures had rebounded. I ordered an EKG and cardiac panel with the chest pain. EKG reportedly showed no change. I called about 6:30 for the results of the troponin, was told that troponin had bumped up to 1.26. At this point, the morning rounding team was coming in and I communicated with them about the patient's positive troponin and need for transfer to intensive care unit and cardiology consultation. Care was handed over at this point to the rounding team.
== END 2017-09-15 07:58 | disposition expired | DRG 193 ==
LOC: M ED 06:23 → M ED INP 11:08 → M PCU 21:15 → M ICU 09-15 06:53
PROVIDERS: ADMIT Family Medicine; ATTEND Family Medicine
PROC: 0BH17EZ Insertion of Endotracheal Airway into Trachea, Via Natural or Artificial Opening (ICD-10-PCS; principal; 2017-09-15)
DX: J18.9 Pneumonia, unspecified organism (principal); R65.21 Severe sepsis with septic shock; I50.32 Chronic diastolic (congestive) heart failure; N17.9 Acute kidney failure, unspecified; N18.4 Chronic kidney disease, stage 4 (severe); N25.81 Secondary hyperparathyroidism of renal origin; C34.91 Malignant neoplasm of unspecified part of right bronchus or lung; D84.9 Immunodeficiency, unspecified; J44.1 Chronic obstructive pulmonary disease with (acute) exacerbation; I13.0 Hypertensive heart and chronic kidney disease with heart failure and stage 1 through stage 4 chronic kidney disease, or unspecified chronic kidney disease; I46.9 Cardiac arrest, cause unspecified; K21.9 Gastro-esophageal reflux disease without esophagitis; E83.42 Hypomagnesemia; D63.1 Anemia in chronic kidney disease; E11.21 Type 2 diabetes mellitus with diabetic nephropathy; E11.319 Type 2 diabetes mellitus with unspecified diabetic retinopathy without macular edema; E78.5 Hyperlipidemia, unspecified; G47.33 Obstructive sleep apnea (adult) (pediatric); G35 Multiple sclerosis; Z92.3 Personal history of irradiation; Z92.21 Personal history of antineoplastic chemotherapy; Z95.9 Presence of cardiac and vascular implant and graft, unspecified; I25.2 Old myocardial infarction; Z90.721 Acquired absence of ovaries, unilateral; Z87.891 Personal history of nicotine dependence; Z79.82 Long term (current) use of aspirin; Z79.02 Long term (current) use of antithrombotics/antiplatelets; Z79.899 Other long term (current) drug therapy; Z88.5 Allergy status to narcotic agent; Y95 Nosocomial condition